=== PATIENT | male | born 1955 | race Caucasian/White ===

== ENCOUNTER 2018-07-09 17:53 | Outpatient (REF) | payer MEDICARE, SELFPAY ==
[2018-07-09 21:08] LABS: Abs Immature Grans 0.02 k/cumm (0.0-0.09); Absolute Basophil Count 0.02 k/cumm (0.0-0.2); Absolute Eosinophil Count 0.35 k/cumm (0.0-0.7); Absolute Lymphocyte Count 2.58 k/cumm (1.2-3.4); Absolute Monocyte Count 0.84 k/cumm (0.11-0.7); Absolute Neutrophil Count 4.78 k/cumm (1.2-6.7); Basophils % 0.2; Eosinophils % 4.1; HCT 45.4 % (40.0-50.0); HGB 15.6 g/dL (13.5-17.5); Immature Grans % 0.2; Mean Corp. HGB Concentration 34.4 g/dL (32.0-36.0); Mean Corpuscular Hemoglobin 30.2 pg (27.0-33.0); Mean Platelet Volume 11.4 fL (8.0-11.0); Monocytes % 9.8; Neutrophils % 55.7; Platelet Count 209 x1000/uL (130-400); RBC 5.16 m/cumm (4.50-6.00); RBC Distribution Width 13.7 % (11.8-14.1); White Blood Cell Count 8.59 k/cumm (4.4-10.8)
[2018-07-09 21:49] LABS: ALT 55 U/L (12-78); AST 31 U/L (15-37); Alkaline Phosphatase 93 U/L (46-116); Anion Gap 10.8 mmol/L (3-11); BUN 25 mg/dL (7-18); Bilirubin, Total 0.4 mg/dL (0.2-1.0); CO2 26.2 mmol/L (21.0-32.0); CREATININE 0.95 mg/dL (0.70-1.30); Calcium 8.8 mg/dL (8.5-10.1); Chloride 107 mmol/L (98-107); Glucose 112 mg/dL (70-100); Potassium 4.1 mmol/L (3.5-5.1); Sodium 144 mmol/L (136-145); TSH (W/Ref FT4) 2.65 uIU/mL (0.358-3.74); Vitamin B12 520 pg/mL (193-986)
[2018-07-11 11:06] LABS: Hepatitis C Ab w Rflx HCV PCR Negative (NEGAT)
== END 2018-07-09 18:13 ==
LOC: NCHCN 17:53
PROVIDERS: PCP Nurse Practitioner Family; Visit Provider Nurse Practitioner Family
DX: R41.3 Other amnesia (principal); I20.9 Angina pectoris, unspecified; G47.33 Obstructive sleep apnea (adult) (pediatric); I25.10 Atherosclerotic heart disease of native coronary artery without angina pectoris; E78.5 Hyperlipidemia, unspecified; I10 Essential (primary) hypertension; Z00.00 Encounter for general adult medical examination without abnormal findings; E66.9 Obesity, unspecified; Z11.59 Encounter for screening for other viral diseases
CPT/HCPCS: 80053; 86803; 82607; 84443; 85025

== ENCOUNTER 2018-12-17 16:32 | Outpatient (CLI) | payer OTHER, SELFPAY ==
--- NOTE | 2018-12-17 12:45 | DI.CT_ITS ---
SYMPTOMS/DIAGNOSIS: HEADACHE, S/P INJURY 6 DAYS AGO, R51 NONCONTRAST HEAD CT: There are no prior comparison exams. No intracranial hemorrhage or skull fracture is seen. There is no evidence of mass or infarct. There is mild atrophy. No white matter changes are visible. The orbits, sinuses and mastoid air cells are unremarkable. IMPRESSION: Mild atrophy, otherwise negative.
== END 2018-12-17 16:52 ==
PROVIDERS: PCP Nurse Practitioner Family; Visit Provider Internal Medicine
DX: R51 Headache (principal); W19.XXXA Unspecified fall, initial encounter; G31.89 Other specified degenerative diseases of nervous system
CPT/HCPCS: 70450

== ENCOUNTER 2019-07-11 16:20 | Outpatient (REF) | payer OTHER, SELFPAY ==
[2019-07-11 21:36] LABS: Hemoglobin A1C 5.7 % (4.5-6.2)
[2019-07-11 21:40] LABS: ALT 96 U/L (16-63); AST 46 U/L (15-37); Albumin 4.5 g/dL (3.4-5.0); Alkaline Phosphatase 55 U/L (46-116); Anion Gap 11.7 mmol/L (3-11); BUN 16 mg/dL (7-18); Bilirubin, Total 0.6 mg/dL (0.2-1.0); CO2 26.3 mmol/L (21.0-32.0); CREATININE 0.88 mg/dL (0.70-1.30); Calcium 9.5 mg/dL (8.5-10.1); Chloride 101 mmol/L (98-107); Glucose 90 mg/dL (70-100); Sodium 139 mmol/L (136-145); Total Protein 7.7 g/dL (6.4-8.2)
== END 2019-07-11 16:40 ==
LOC: NCHCN 16:20
PROVIDERS: PCP Nurse Practitioner Family; Visit Provider Nurse Practitioner Family
DX: R73.03 Prediabetes (principal); R10.9 Unspecified abdominal pain; R39.9 Unspecified symptoms and signs involving the genitourinary system; R51 Headache; G47.33 Obstructive sleep apnea (adult) (pediatric); I25.10 Atherosclerotic heart disease of native coronary artery without angina pectoris; E66.9 Obesity, unspecified; E78.5 Hyperlipidemia, unspecified
CPT/HCPCS: 80053; 83036

== ENCOUNTER 2019-07-15 15:03 | Outpatient (REF) | payer OTHER, SELFPAY ==
[2019-07-17 12:37] LABS: Hepatitis A Antibody IgM Negative (NEGAT); Hepatitis B Core Antibody Negative (NEGAT); Hepatitis B surface Ag Negative (NEGAT); Hepatitis C Ab w Rflx HCV PCR Negative (NEGAT)
== END 2019-07-15 15:23 ==
LOC: NCHCN 15:03
PROVIDERS: PCP Nurse Practitioner Family; Visit Provider Nurse Practitioner Family
DX: R74.0 Nonspecific elevation of levels of transaminase and lactic acid dehydrogenase [LDH] (principal); Z11.59 Encounter for screening for other viral diseases
CPT/HCPCS: 86704; 86709; 86803; 87340

== ENCOUNTER 2019-07-26 00:40 | Outpatient (CLI) | payer OTHER, SELFPAY ==
--- NOTE | 2019-07-26 07:32 | DI.US_ITS ---
EXAM: US ABDOMEN CLINICAL HISTORY: ELEVATED TRANSAMINASES,R74.0. TECHNIQUE: Ultrasound performed using standard protocol. COMPARISON: RIGHT EXTREMITY ULTRASOUND from 03/13/2017 FINDINGS: Visualized liver parenchyma appears of increased echogenicity raising the possibility of hepatic stea tosis. No focal lesion identified. No evidence of cholelithiasis or biliary dilatation. Pancreas a ppears intact. Spleen is unremarkable. Kidneys appear normal with no evidence of hydronephrosis or nephrolithiasis. No evidence of abdominal aortic aneurysm. IVC is of normal diameter. IMPRESSION: Possible hepatic steatosis. No evidence of cholelithiasis.
== END 2019-07-26 01:00 ==
PROVIDERS: PCP Nurse Practitioner Family; Visit Provider Nurse Practitioner Family
DX: K76.0 Fatty (change of) liver, not elsewhere classified (principal); R74.0 Nonspecific elevation of levels of transaminase and lactic acid dehydrogenase [LDH]
CPT/HCPCS: 76700

== ENCOUNTER 2020-10-07 18:51 | Outpatient (REF) | payer OTHER, SELFPAY ==
[2020-10-07 22:09] LABS: Abs Immature Grans 0.02 10^3/uL (0.0-0.06); Absolute Basophil Count 0.02 10^3/uL (0.0-0.2); Absolute Eosinophil Count 0.12 10^3/uL (0.0-0.7); Absolute Monocyte Count 0.56 10^3/uL (0.1-0.8); Absolute Neutrophil Count 4.34 10^3/uL (1.2-6.7); Basophils % 0.3; Eosinophils % 1.7; HCT 47.1 % (40.0-50.0); HGB 15.8 g/dL (13.5-17.5); Immature Grans % 0.3; Lymphocytes % 27.3; MCH 30.1 pg (27.0-33.0); MCHC 33.5 % (32.0-36.0); MCV 89.7 fL (80-95); MPV 11.3 fL (8.0-11.0); Neutrophils % 62.4; Nucleated RBC 0 %; Platelet Count 219 10^3/uL (130-400); RBC 5.25 10^6/uL (4.36-5.78); RDW 12.6 % (11.8-14.1); RDW-SD 41.6 fL; WBC 6.96 10^3/uL (4.4-10.8)
[2020-10-07 22:23] LABS: ALT 63 U/L (16-63); AST 39 U/L (15-37); Albumin 4.3 g/dL (3.4-5.0); Alkaline Phosphatase 67 U/L (46-116); Anion Gap 7.3 mmol/L (3-11); BUN 19 mg/dL (7-18); Bilirubin, Total 0.6 mg/dL (0.2-1.0); CO2 28.7 mmol/L (21.0-32.0); CREATININE 0.91 mg/dL (0.70-1.30); Calcium 9.3 mg/dL (8.5-10.1); Chloride 102 mmol/L (98-107); Glucose 79 mg/dL (74-106); Potassium 4.7 mmol/L (3.5-5.1); Sodium 138 mmol/L (136-145); Total Protein 7.2 g/dL (6.4-8.2)
[2020-10-07 22:24] LABS: Hemoglobin A1C 5.3 % (<5.7)
== END 2020-10-07 19:11 ==
LOC: NCHCN 18:51
PROVIDERS: PCP Nurse Practitioner Family; Visit Provider Nurse Practitioner Family
DX: R73.03 Prediabetes (principal); I10 Essential (primary) hypertension; E78.5 Hyperlipidemia, unspecified
CPT/HCPCS: 80053; 83036; 85025

== ENCOUNTER 2020-10-19 02:01 | Outpatient (CLI) | payer OTHER, SELFPAY ==
--- NOTE | 2020-10-19 | DI.US_ITS ---
EXAM: US ABDOMEN CLINICAL HISTORY: STEATOSIS OF LIVER, K76.0, ELEVATED TRANSAMINASES, R74.0 TECHNIQUE: Ultrasound of complete upper abdomen performed using standard protocol. COMPARISON: US US ABDOMEN from 07/26/2019 FINDINGS: There is no ascites evident. LIVER: Liver is hyperechoic indicating steatosis. Liver also appears slightly enlarged. There are n o discrete focal hepatic lesions evident on these images. GALLBLADDER/BILIARY: There are no gallstones. No gallbladder wall edema nor pericholecystic fluid. The common hepatic duct isnot dilated, measuring 5mm at the level of robles hepatis. PANCREAS: There is no evidence of pancreatic mass nor dilatation of the pancreatic duct. SPLEEN: The spleen is not enlarged and there are no intrasplenic lesions evident. KIDNEYS:Kidneys exhibit normal size with no evidence of solid mass, calculus, nor hydronephrosis. No cortical cysts evident. ABDOMINAL AORTA: There is no evidence of abdominal aortic aneurysm. IVC: Normal diameter where visualized. IMPRESSION: 1. No evidence of cholelithiasis nor dilatation of the biliary tree. 2. Liver appears enlarged and steatotic. Correlation with appropriate hepatic blood work is recomme nded. There are no discrete ominous focal hepatic lesions evident on these images. 3. There is no ascites. DATA REPOSITORY:
== END 2020-10-19 02:21 ==
PROVIDERS: PCP Nurse Practitioner Family; Visit Provider Nurse Practitioner Family
DX: K76.0 Fatty (change of) liver, not elsewhere classified (principal); R74.01 Elevation of levels of liver transaminase levels
CPT/HCPCS: 76700

== ENCOUNTER 2021-04-12 11:45 | Outpatient (REF) | payer OTHER, SELFPAY ==
[2021-04-12 14:25] LABS: Abs Immature Grans 0.03 10^3/uL (0.0-0.06); Absolute Basophil Count 0.02 10^3/uL (0.0-0.2); Absolute Eosinophil Count 0.23 10^3/uL (0.0-0.7); Absolute Lymphocyte Count 2.17 10^3/uL (1.2-3.4); Absolute Monocyte Count 0.76 10^3/uL (0.1-0.8); Absolute Neutrophil Count 4.13 10^3/uL (1.2-6.7); Basophils % 0.3; Eosinophils % 3.1; HCT 47.3 % (40.0-50.0); HGB 16.1 g/dL (13.5-17.5); Immature Grans % 0.4; Lymphocytes % 29.6; MCH 30.3 pg (27.0-33.0); MCV 88.9 fL (80-95); MPV 11.9 fL (8.0-11.0); Monocytes % 10.4; Neutrophils % 56.2; Nucleated RBC 0 %; Platelet Count 204 10^3/uL (130-400); RBC 5.32 10^6/uL (4.36-5.78); RDW 12.9 % (11.8-14.1); RDW-SD 41.4 fL; WBC 7.34 10^3/uL (4.4-10.8)
[2021-04-12 14:40] LABS: ALT 77 U/L (16-63); AST 40 U/L (15-37); Albumin 4.1 g/dL (3.4-5.0); Alkaline Phosphatase 84 U/L (46-116); Anion Gap 11.5 mmol/L (3-11); BUN 18 mg/dL (7-18); Bilirubin, Total 0.4 mg/dL (0.2-1.0); CO2 24.5 mmol/L (21.0-32.0); Calcium 8.8 mg/dL (8.5-10.1); Chloride 105 mmol/L (98-107); Glucose 131 mg/dL (74-106); Potassium 4.2 mmol/L (3.5-5.1); Sodium 141 mmol/L (136-145)
[2021-04-12 14:46] LABS: Hemoglobin A1C 5.7 % (<5.7)
== END 2021-04-12 11:46 | disposition home or self-care (01) ==
LOC: NCHCN 11:45
PROVIDERS: PCP Nurse Practitioner Family; Visit Provider Nurse Practitioner Family
DX: R73.03 Prediabetes (principal); I10 Essential (primary) hypertension; I25.10 Atherosclerotic heart disease of native coronary artery without angina pectoris; R74.01 Elevation of levels of liver transaminase levels; K76.0 Fatty (change of) liver, not elsewhere classified
CPT/HCPCS: 80053; 83036; 85025

== ENCOUNTER 2022-01-17 10:33 | Outpatient (CLI) | payer MEDICARE, SELFPAY ==
[2022-01-17 12:45] LABS: Abs Immature Grans 0.03 10^3/uL (0.0-0.06); Absolute Basophil Count 0.03 10^3/uL (0.0-0.2); Absolute Eosinophil Count 0.14 10^3/uL (0.0-0.7); Absolute Lymphocyte Count 2.16 10^3/uL (1.2-3.4); Absolute Monocyte Count 0.62 10^3/uL (0.1-0.8); Basophils % 0.4; Eosinophils % 1.8; HCT 44.8 % (40.0-50.0); HGB 15.4 g/dL (13.5-17.5); Immature Grans % 0.4; Lymphocytes % 28.1; MCH 30.4 pg (27.0-33.0); MCHC 34.4 % (32.0-36.0); MCV 88.4 fL (80-95); MPV 10.3 fL (8.0-11.0); Monocytes % 8.1; Neutrophils % 61.2; Nucleated RBC 0 %; Platelet Count 199 10^3/uL (130-400); RBC 5.07 10^6/uL (4.36-5.78); RDW 13.2 % (11.8-14.1); RDW-SD 42.3 fL; WBC 7.68 10^3/uL (4.4-10.8)
[2022-01-17 12:47] LABS: ESR < 1 mm/hr (0-20)
[2022-01-17 13:27] LABS: ALT 79 U/L (16-63); AST 31 U/L (15-37); Albumin 4.1 g/dL (3.4-5.0); Alkaline Phosphatase 72 U/L (46-116); Anion Gap 10.2 mmol/L (3-11); BUN 20 mg/dL (7-18); Bilirubin, Total 0.4 mg/dL (0.2-1.0); CO2 24.8 mmol/L (21.0-32.0); CREATININE 0.9 mg/dL (0.70-1.30); Calcium 8.5 mg/dL (8.5-10.1); Chloride 105 mmol/L (98-107); Creatine Kinase 270 U/L (39-308); Glucose 121 mg/dL (74-106); Magnesium 1.9 mg/dL (1.8-2.4); Potassium 3.6 mmol/L (3.5-5.1); Sodium 140 mmol/L (136-145); TSH (W/Ref FT4) 1.69 uIU/mL (0.36-3.74); Total Protein 7.2 g/dL (6.4-8.2); Troponin I < 50 ng/L (<or=60); Vitamin B12 529 pg/mL (193-986)
== END 2022-01-17 10:34 | disposition home or self-care (01) ==
LOC: LBO 10:36
PROVIDERS: PCP Nurse Practitioner Family; Visit Provider Nurse Practitioner Family
DX: R09.89 Other specified symptoms and signs involving the circulatory and respiratory systems (principal); R01.1 Cardiac murmur, unspecified; R51.9 Headache, unspecified; R29.898 Other symptoms and signs involving the musculoskeletal system; R07.89 Other chest pain
CPT/HCPCS: 36415; 80053; 82550; 85652; 82607; 83735; 84443; 84484; 85025

== ENCOUNTER → 2022-01-31 00:59 | Outpatient (CLI) | payer MEDICARE, SELFPAY ==
--- NOTE | 2022-01-31 09:15 | DI.NM_ITS ---
APPROVED REPORT Exam: Exercise Treadmill Patient Location: Out-Patient Room/Bed: Stress Nurse: Gerri Winslow RN Ordering Provider:AKANKSHA GIFFORD, Contact Number: [phone] BMI: 34.94 Baseline Rhythm: Sinus Rhythm Comment: Flipped T waves lead III Indications: Chest discomfort, cardiac murmur, headaches, bilateral leg weakness Medical History Medical History: Hypertension, hyperlipidemia, prediabetes, tobacco abuse, ALEK, obesity, CAD, paresth esia of bilateral legs, abdominal burit Cardiac Medications: Simvastatin, nitroglycerin SL, lisinopril, aspirin Allergies: Atorvastatin Cardiac Risk Factors: Hypertension, hyperlipidemia, prediabets, smoker (current), CVD, family hx Previous Cardiac Procedures: PCI -2015 per pt report Pretest Chest Pain Characteristics: None Exercise History: Sedentary Physical Disabilities: Paresthesia of bilateral legs Lung Sounds: Clear to auscultation Heart Sounds: Murmur Stress Test Details Test: Exercise stress testing was performed using a Marcus protocol. Nuclear Acquisition: Rest Tc-99m/Stress Tc-99m 1 day Rest Isotope: Tc-99m Sestamibi. Dose: 11.0 Date: 01/31/2022 Injection Time: 0920 Stress Isotope: Tc-99m Sestamibi. Dose: 35.0 Date: 01/31/2022 Injection Time: 1105 HR Resting HR Supine: 63 bpm Max Heart Rate (APMHR): 152.725013 bpm Resting HR Standin bpm Target HR (85% APMHR): 129.715193 bpm Max HR Achieved: 135 bpm % of APMHR: 88.82 Recovery HR: 72 bpm HR response to stress: Normal HR response to stress BP Resting BP Supine: 150/88 mmHg Resting BP Standin/80 mmHg Max BP: 184/88 mmHg Recovery BP: 150/92 mmHg BP response to stress: Normal blood pressure response to stress. ECG Resting ECG: Sinus Rhythm Ectopy: None Comment: Fillped T waves lead III Stress ECG: Sinus Tachycardia ST Change: No significant ST segment changes noted Arrhythmia: None Recovery ECG: Sinus Rhythm Recovery ST Change: No significant ST segment changes noted Recovery Arrhythmia: None Clinical Reason for Termination: Fatigue Stress Symptoms: General Fatigue, Dyspnea, Dizziness Exercise duration: 6 min50 sec Highest Stage Reached: Stage 2: 2.5 mph at 12% grade. Exercise capacity: 7.05 METs Christensen Treadmill Score: 6.6 Rate Pressure Product: 36180 Stress ECG Conclusion 1. Resting electrocardiogram showed poor R wave progression 2. Patient exercised on the Marcus protocol and completed a workload of 7.05 METS 3. Normal heart rate and blood pressure response to exercise. Patient achieved 88% of predicted hear t rate for age 4. The electrocardiographic portion of the test was negative for myocardial ischemia 5. There were no significant dysrhythmias 6. See MPI report Christensen Treadmill Score is 6.6 which is Low risk. Stress Test Summary STAGE Time (mins) Speed (mph) Grade (%) HR BP SYMPTOMS METS Supine 63 150/88 Standing 70 132/80 SpO2 96% 1 3 1.7 10 113 152/88 SpO2 95% 4.6 2 6 2.5 12 128 184/88 Mild SOB, SpO2 96% 7 1 min recovery 85 180/90 Dizziness, SpO2 96% 3 min recovery 74 168/90 SOB and dizziness resolved, SpO2 95% 6 min recovery 72 150/92 SpO2 96% Pt reached THR during second stage of exercise. Marcus protocol modified in order to maintain exercise after nuclear medicine injected. Modified protocol to 2.5mph and 5.0% grade. Pt tolerated testing we ll. Experienced dizziness when exercise terminated; resolved during recovery period. MPI Conclusion Normal myocardial perfusion without evidence of ischemia or prior infarction EF 57%, normal wall motion Radiologist Interpretation Radiologist agrees with [employer]'s Interpretation. Radiologist Interpretation by: Winnie Mitchell MD Interpretation Date/Time: 01/31/2022 16:10:29
== END ==
PROVIDERS: PCP Nurse Practitioner Family; Visit Provider Nurse Practitioner Family
DX: R07.9 Chest pain, unspecified (principal); R01.1 Cardiac murmur, unspecified; R51.9 Headache, unspecified; M62.81 Muscle weakness (generalized)
CPT/HCPCS: 78452; 93016; 93018; 93017

== ENCOUNTER 2022-02-07 14:05 | Emergency (ER) | payer MEDICARE, SELFPAY ==
--- NOTE | 2022-02-07 14:15 | RT.EKG_ITS ---
APPROVED REPORT Exam: Resting ECG Reason for Exam: weakness/weak Patient Location: E HR:69 bpm ECG Measurements Heart Rate 69 AXIS DC 200 P 32 QRSd 100 QRS -37 QT 405 T -3 QTc 435 Conclusion Sinus rhythm...normal P axis, V-rate 60- 99 Inferior infarct, old...Q >35mS, II III aVF sinus rhythm, left axis, normal intervals, non ischemic
[2022-02-07 14:16] VITALS: BP 169/82; PULSE 70; RESP 18; TEMP 36.7; O2SAT 96
[2022-02-07 14:21] VITALS: RESP 18
--- NOTE | 2022-02-07 14:33 | DI.CT_ITS ---
Exam(s) CT THORAX ABD/PEL CTA EXAM: CT THORAX ABD/PEL CTA CLINICAL HISTORY: new heart murmur, abdominal bruit, back pain. TECHNIQUE: Imaging Protocol: Axial CT angiography was performed with multi-slice acquisition and m ulti-planar and/or 3D reconstructions. CONTRAST MATERIAL: Intravenous: Omnipaque 350 Contrast volume:125 ml Oral: / no COMPARISON: CT,NM,TMT NM MPI REST STRESS GRP from 01/31/2022 FINDINGS: CHEST: Pulmonary Arteries: No evidence of filling defect to suggest pulmonary emboli. Tracheobronchial tree: Patent where visualized. Mediastinum and Carito: No dominant adenopathy or fluid collection. Pulmonary parenchyma: No consolidation or dominant measurable mass. No architectural distortion. Pleura: No effusion or pneumothorax. Heart: The heart is mildly dilated. No coronary artery calcifications are seen. Aorta: Thoracic aorta non-dilated. No significant calcification. No evidence of dissection Bones: Degenerative disc changes with flowing osteophytes. No fracture. Tubes, Catheters, and Lines: ABDOMEN AND PELVIS: Abdomen: Celiac axis/mesenteric arteries: No evidence of occlusion or significant stenosis. Renal Arteries: No evidence of occlusion or significant stenosis. There is a single renal artery per fusing each kidney. Aorta: No evidence of occlusion or significant stenosis. No aneurysm or dissection. Pelvis: Iliac Arteries: No evidence of occlusion or significant stenosis. Common Femoral Arteries: No evidence of occlusion or significant stenosis. ABDOMEN: Liver: Enlarged. Severe hepatic steatosis. No measurable mass. Portal, Superior Mesenteric, and Splenic Veins: Unremarkable. Gallbladder and Biliary Tract: No radiodense calculus or dilation. Pancreas: Normal density, no abnormal calcifications or inflammatory process. Spleen: Normal. Adrenals: No masses seen. Kidneys: Normal size, contour and axis. No radiodense stones or obstructive uropathy. No masses seen. Bowel: No obstruction or bowel wall thickening. Mild diverticulosis. Peritoneal Cavity: No ascites, collection or mesenteric inflammatory response. Lymph Nodes: Within normal limits. Bones: Unremarkable. Soft Tissues: Unremarkable. PELVIS: Bladder: Symmetric distention, no gross wall thickening. Reproductive Organs: Unremarkable as visualized. Lymph Nodes: Within normal limits. Bones: Degenerative changes in the spine and hips. Mild scoliosis. Soft tissues: Bilateral fatty containing inguinal hernias. IMPRESSION: Normal CT Angiogram of the chest, abdomen and pelvis. No evidence of aneurysm or dissection. No significant atherosclerotic changes. RADIATION DOSE DELIVERED: 1,199.54mGy.cm Total DLP 1,199.54mGy.cm Total DLP DATA REPOSITORY: All CT scans at this facility are submitted to the National Radiology Data Registry (NRDR) Dose Index Registry (DIR) with the [employer] ([employer]). RADIATION OPTIMIZATION: All CT scans at this facility use at least one of these dose optimization te chniques: automated exposure control; mA and/or kV adjustment per patient size (includes targeted exa ms where dose is matched to clinical indication); or iterative reconstruction.
[2022-02-07 14:46] LABS: Abs Immature Grans 0.02 10^3/uL (0.0-0.06); Absolute Basophil Count 0.03 10^3/uL (0.0-0.2); Absolute Eosinophil Count 0.13 10^3/uL (0.0-0.7); Absolute Lymphocyte Count 2.39 10^3/uL (1.2-3.4); Absolute Monocyte Count 0.95 10^3/uL (0.1-0.8); Absolute Neutrophil Count 4.68 10^3/uL (1.2-6.7); Basophils % 0.4; Eosinophils % 1.6; HCT 46.5 % (40.0-50.0); HGB 16.1 g/dL (13.5-17.5); Immature Grans % 0.2; Lymphocytes % 29.1; MCH 30.6 pg (27.0-33.0); MCHC 34.6 % (32.0-36.0); MCV 88.4 fL (80-95); MPV 10.4 fL (8.0-11.0); Monocytes % 11.6; Neutrophils % 57.1; Platelet Count 228 10^3/uL (130-400); RBC 5.26 10^6/uL (4.36-5.78); RDW 12.5 % (11.8-14.1); RDW-SD 40.8 fL
[2022-02-07 15:00] LABS: PTT Activated 25.3 sec (21.0-27.5); Prothrombin Time 10.3 sec (9.3-11.0)
--- NOTE | 2022-02-07 15:00 | DI.CT_ITS ---
Exam(s) CT HEAD WO EXAM: CT HEAD WO CLINICAL HISTORY: headache, leg weakness bilaterally. TECHNIQUE: Imaging Protocol: Axial computed tomography images with coronal and sagittal reformatted images were created and reviewed COMPARISON: CT CT HEAD WO from 12/17/2018 FINDINGS: Ventricles and Extra axial spaces: Normal in size and morphology for the patient's age. Hemorrhage: None. Cerebral parenchyma: Normal. Midline shift: None. Brainstem/Cerebellum: Normal. Calvarium: Normal. Visualized Paranasal sinuses/Mastoids: Clear. Soft Tissues: Unremarkable. IMPRESSION: No acute intracranial process. RADIATION DOSE DELIVERED: 858.68mGy.cm Total DLP DATA REPOSITORY: All CT scans at this facility are submitted to the National Radiology Data Registry (NRDR) Dose Index Registry (DIR) with the [employer] (ACR). RADIATION OPTIMIZATION: All CT scans at this facility use at least one of these dose optimization te chniques: automated exposure control; mA and/or kV adjustment per patient size (includes targeted exa ms where dose is matched to clinical indication); or iterative reconstruction.
--- NOTE | 2022-02-07 15:01 | ED.GENADUL_ITS ---
Discharge Plan Disposition Patient Disposition: STILL A PATIENT Condition: Stable Discharge Details Chief Complaint: Chest Pain Clinical Impression: Chest pain Primary Care Provider: Nikki Tripp ED Provider: Bentley Huerta Home Meds and New Rx's Prescriptions: No Action multivitamin [Once Daily] 1 EACH tablet 1 tab PO DAILY 0RF lisinopril 20 MG tablet 20 mg PO DAILY 0RF aspirin [Ecotrin Low Strength] 81 MG tablet,delayed release (DR/EC) 81 mg PO DAILY 0RF nitroglycerin 0.4 MG tablet, sublingual 1 tab Sublingual DIRECTED PRN0RF pravastatin 20 MG tablet 1 tab PO DAILY 0RF cholecalciferol (vitamin D3) 1,000 UNITS tablet 1 tab PO DAILY 0RF Medical Decision Making 66-year-old male history of hypertension hyperlipidemia, coronary disease, presents with intermittent chest pain over the last several weeks, bilateral lower extremity fatigue, possible new heart murmur heard by primary care provider as well as possible abdominal bruit, patient endorsed to them chest pain and mild back pain. Patient is hemodynamically stable no acute distress equal pulses warm well perfused extremities. No murmur appreciated on my examination. However given history physical and findings at outpatient office must consider aortic pathology such as aortic dissection aortic aneurysm versus ACS versus electrolyte abnormality versus less likely stroke or intracranial bleed. Screening labs imaging EKG close reassessment disposition pending results. HPI General Date/Time Provider Initiated Documentation: 02/07/22 14:33 . HPI Narrative: 66-year-old male history of coronary disease hypertension upper lipidemia, referred in by primary care for evaluation of chest pain over the last week, new heart murmur and possible abdominal bruit heard in the office today, patient dorsals mild headache gradual in onset and bilateral lower extremity fatigue over the past several weeks. Related Data Home Medications Medication Instructions Recorded Confirmed aspirin 81 mg tablet,delayed 81 mg PO DAILY 03/13/17 02/07/22 release (Ecotrin Low Strength) cholecalciferol (vitamin D3) 25 1 tab PO DAILY 03/13/17 02/07/22 mcg (1,000 unit) tablet lisinopril 20 mg tablet 20 mg PO DAILY 03/13/17 02/07/22 multivitamin (Once Daily) 1 tab PO DAILY 03/13/17 02/07/22 nitroglycerin 0.4 mg sublingual 1 tab SUBLINGUAL DIRECTED PRN 03/13/17 02/07/22 tablet pravastatin 20 mg tablet 1 tab PO DAILY 03/13/17 02/07/22 Allergies Allergy/AdvReac Type Severity Reaction Status Date / Time atorvastatin [From Lipitor] Allergy Mild Verified 02/07/22 14:19 General Stated Complaint: Chest Pain SARAH: 3 Review of Systems Narrative: Review of Systems Constitutional: negative Eyes: negative ENT: negative Cardiovascular: Chest pain, heart murmur Respiratory: negative Gastrointestinal: negative : negative Musculoskeletal: negative Skin: negative Neurologic: Leg fatigue, headache Psych: negative PFSH All Active Problems (Updated 02/07/22 @ 16:30 by Bentley Huerta MD) Chest pain (Acute) Family History (Updated 07/17/18 @ 13:02 by Lakeisha Oilvier LPN) Mother Alzheimer disease Social History (Updated 07/17/18 @ 13:01 by Lakeisha Olivier LPN) Smoking/Tobacco Use Status: Former Tobacco Use Smoking risk assessment performed?: Yes Alcohol Intake: current Alcohol Intake frequency: holidays/special occasions only Drug use: Never Substance use type: does not use Household members: spouse Housing: house Number of Children: 1 Do you feel safe at home: Yes Do you feel safe in your relationship?: Yes Exam Narrative Exam Narrative: Physical Examination General: alert, awake, cooperative, resting comfortably, no acute distress HEENT: normocephalic, atraumatic; PERRL, EOM intact, conjunctiva normal; no nasal discharge; moist mucous membranes, oral and pharyngeal mucosa normal, tolerating secretions Neck: supple, trachea midline; full ROM Chest: normal to inspection Respiratory: normal respiratory effort, speaking in full sentences, clear to auscultation, no wheezing, rales or rhonchi Cardiac: regular rate, regular rhythm, S1S2 intact, no murmurs rubs or gallops; equal radial pulses GI: abdomen soft, non-tender, non-distended; no palpable mass or hepatosplenomegaly Skin: no lesions, rashes or trauma appreciated Neuro: AAOx3, normal speech, moving all extremities, full strength, ambulatory without assistance Extremities: Warm well perfused lower extremities, mild edema to bilateral ankles Psych: Appropriate mood and affect Course Vital Signs Vital signs: Vital Signs Temperature 36.7 C 02/07/22 14:16 Pulse 70 02/07/22 14:16 Respiratory Rate 18 02/07/22 14:16 Blood Pressure 169/82 H 02/07/22 14:16 Pulse Oximetry 96 02/07/22 14:16 Temperature 36.7 C 02/07/22 14:16 Temperature Source Temporal Artery Scan 02/07/22 14:16 Pulse 70 02/07/22 14:16 Respiratory Rate 18 02/07/22 14:21 Respiratory Effort 02/07/22 14:21 Respiratory Depth Normal 02/07/22 14:21 Respiratory Pattern Normal 02/07/22 14:21 Blood Pressure 169/82 H 02/07/22 14:16 Blood Pressure Position Sitting 02/07/22 14:16 Pulse Oximetry 96 02/07/22 14:16 Oxygen Delivery Method Room Air 02/07/22 14:16 Oxygen Flow Rate 0 02/07/22 14:16 Pain Level 3 02/07/22 14:21 Lab/Test Results Lab/Test Results: Laboratory Tests Range/Units 02/07/22 02/07/22 14:35 14:35 WBC (4.4-10.8) 10^3/uL 8.20 RBC (4.36-5.78) 10^6/uL 5.26 Hgb (13.5-17.5) g/dL 16.1 Hct (40.0-50.0) % 46.5 MCV (80-95) fL 88.4 MCH (27.0-33.0) pg 30.6 MCHC (32.0-36.0) % 34.6 RDW (11.8-14.1) % 12.5 Plt Count (130-400) 10^3/uL 228 MPV (8.0-11.0) fL 10.4 Immature Gran % 0.2 Neutrophils % 57.1 Lymphocytes % 29.1 Monocytes % 11.6 Eosinophils % 1.6 Basophils % 0.4 Nucleated RBC % (0.0-0.3) % 0.0 Absolute Neutrophils (1.2-6.7) 10^3/uL 4.68 Absolute Lymphocytes (1.2-3.4) 10^3/uL 2.39 Absolute Monocytes (0.1-0.8) 10^3/uL 0.95 H Absolute Eosinophils (0.0-0.7) 10^3/uL 0.13 Absolute Basophils (0.0-0.2) 10^3/uL 0.03 PT (9.3-11.0) sec 10.3 INR (0.9-1.1) 1.0 APTT (21.0-27.5) sec 25.3
[2022-02-07 15:04] LABS: ALT 122 U/L (16-63); AST 38 U/L (15-37); Albumin 4.3 g/dL (3.4-5.0); Alkaline Phosphatase 66 U/L (46-116); Anion Gap 8.1 mmol/L (3-11); BUN 19 mg/dL (7-18); Bilirubin, Total 0.5 mg/dL (0.2-1.0); CO2 26.9 mmol/L (21.0-32.0); CREATININE 0.9 mg/dL (0.70-1.30); Chloride 103 mmol/L (98-107); Glucose 81 mg/dL (74-106); Sodium 138 mmol/L (136-145); Total Protein 7.5 g/dL (6.4-8.2); Troponin I < 50 ng/L (<or=60)
[2022-02-07] MEDS: Omnipaque 350 MG/ML 100 ML BTL IJ (15:56)
[2022-02-07] MEDS: Omnipaque 350 MG/ML 50 ML BTL 25 ML IJ (15:56)
[2022-02-07 16:10] VITALS: BP 132/83; PULSE 61; RESP 17; TEMP 36.7; O2SAT 95
[2022-02-07 17:53] VITALS: BP 143/82; PULSE 59; RESP 18; TEMP 36.9; O2SAT 95
[2022-02-07 17:57] LABS: Troponin I < 50 ng/L (<or=60)
--- NOTE | 2022-02-07 18:17 | W.EDPROG ---
Date of service: 02/07/22 Time of Service: 18:22 Medical Decision Making Patient signed out to me pending imaging and delta troponin results and if negative d/c. CT and troponin negative and he is asymptomatic and comfortable with d/c. HE understands to f/u with pcp and return precautions given Sign Out Sign Out Data: Sign Out Comment: pending labs and imaging, if negative can be dc'd home with followup Last updated by Bentley Huerta MD at 02/07/22 16:31 Discharge Plan Disposition Patient Disposition: HOME Condition: Stable Discharge Details Clinical Impression: Chest pain Primary Care Provider: Nikki Tripp ED Provider: Raghavendra Carlson Home Meds and New Rx's Prescriptions: Continued multivitamin [Once Daily] 1 EACH tablet 1 tab PO DAILY 0RF lisinopril 20 MG tablet 20 mg PO DAILY 0RF aspirin [Ecotrin Low Strength] 81 MG tablet,delayed release (DR/EC) 81 mg PO DAILY 0RF nitroglycerin 0.4 MG tablet, sublingual 1 tab Sublingual DIRECTED PRN0RF pravastatin 20 MG tablet 1 tab PO DAILY 0RF cholecalciferol (vitamin D3) 1,000 UNITS tablet 1 tab PO DAILY 0RF Discharge Instructions Instructions: Chest Pain (ED) Additional Instructions: your blood work and imaging did not show concerning findings at this time follow up with your primary care provider within 1 week if you feel more ill, have worsening pain or difficulty breathing return to the emergency department
== END 2022-02-07 18:36 | disposition home or self-care (01) ==
PROVIDERS: Emergency Medicine; Emergency Provider Emergency Medicine; PCP Nurse Practitioner Family
DX: R07.9 Chest pain, unspecified (principal); R53.1 Weakness; R06.02 Shortness of breath; R51.9 Headache, unspecified; R01.1 Cardiac murmur, unspecified; R09.89 Other specified symptoms and signs involving the circulatory and respiratory systems; M54.9 Dorsalgia, unspecified
CPT/HCPCS: 36415; 74177; 80053; 93005; 99285; 70450; 84484; 85025; 85610; 85730; 93010; 99284; J3490; Q9967

== ENCOUNTER → 2022-02-18 01:08 | Outpatient (CLI) | payer MEDICARE, SELFPAY ==
--- NOTE | 2022-02-18 15:05 | DI.MRI_ITS ---
Exam(s) MR LUMBAR SPINE WO EXAM: MR LUMBAR SPINE WO CLINICAL HISTORY: PARESTHESIA OF TABATHA LEGS, R20.2, LEG WEAKNESS TABATHA, R29.898. TECHNIQUE: Multiplanar multisequence MRI of the Lumbar spine was performed. COMPARISON: CR CHEST 2 VIEWS PA,LAT from 03/30/[address] THORAX ABD/PEL CTA from 02/07/2022 FINDINGS: Bones: The last intervertebral disc space is designated the L5/S1 level for the numbering purpose of this examination. The vertebral body heights are well maintained. Mild degenerative levo scoliosis. Marrow shows red marrow reconversion. No suspicious lesions. Degenerative signal changes in the e ndplates. Cord: The conus tip ends at the L1 level. It is of normal size and signal intensity. T12-L1: Mild disc bulging is present. No central spinal canal or neural foraminal stenosis. L1-2: Moderate loss of disc height. Broad-based disc osteophytes. Mild facet degenerative changes. Moderate right neural foraminal narrowing. Mild central canal stenosis. L2-3: Moderate loss of disc height. Broad-based disc osteophytes. Facet degenerative changes. Mode rate central canal stenosis. Moderate right and mild left neural foraminal narrowing. L3-4: Moderate loss of disc height. Broad-based disc bulging. Moderate facet degenerative changes. No significant central canal stenosis. Moderate right and mild left neural foraminal narrowing. L4-5: Mild loss of disc height. Broad-based disc bulging. Facet degenerative changes, greater on th e left. Mild central canal stenosis. Moderate bilateral neural foraminal narrowing.. L5-S1: Left paracentral disc protrusion is likely left-sided nerve root impingement. Moderate facet degenerative changes. No significant neural foraminal narrowing or central canal stenosis. Soft tissues: The visualized SI joints and sacrum are well maintained. The paraspinal soft tissues ar e unremarkable. IMPRESSION: Left paracentral disc protrusion at L5-S1 with nerve root impingement. Multilevel degenerative disc changes and facet degenerative changes combining to produce bilateral ne ural foraminal narrowing and central canal stenosis, greatest at L2-3. DATA REPOSITORY:
== END ==
PROVIDERS: PCP Nurse Practitioner Family; Visit Provider Nurse Practitioner Family
DX: R29.898 Other symptoms and signs involving the musculoskeletal system (principal); R20.2 Paresthesia of skin; M51.17 Intervertebral disc disorders with radiculopathy, lumbosacral region; M47.27 Other spondylosis with radiculopathy, lumbosacral region
CPT/HCPCS: 72148

== ENCOUNTER → 2022-02-22 01:20 | Outpatient (CLI) | payer MEDICARE, SELFPAY ==
--- NOTE | 2022-02-22 11:00 | DI.US_ITS ---
Exam(s) US AAA SCREENING EXAM: US AAA SCREENING CLINICAL HISTORY: ABDOMINAL BRUIT, R09.89 COMPARISON: US US ABDOMEN from 10/19/2020 FINDINGS: There is no evidence of abdominal aortic aneurysm. Maximum diameter of the abdominal aorta is 2.4 cm , proximally. There appears to be satisfactory distal tapering. Diameters of the visualized common iliac arteries is 1.4 cm bilaterally. IMPRESSION: No evidence of significant abdominal aortic aneurysm. DATA REPOSITORY:
== END ==
PROVIDERS: PCP Nurse Practitioner Family; Visit Provider Nurse Practitioner Family
DX: R09.89 Other specified symptoms and signs involving the circulatory and respiratory systems (principal); Z13.6 Encounter for screening for cardiovascular disorders
CPT/HCPCS: 76706

== ENCOUNTER → 2022-03-01 00:48 | Outpatient (CLI) | payer MEDICARE, SELFPAY ==
--- NOTE | 2022-03-01 07:30 | DI.US_ITS ---
APPROVED REPORT EXAM: Comprehensive 2D, Doppler, and color-flow Echocardiogram Patient Location: Out-Patient Welcome Wagon Host/Hostess: Carol De Luna RDCS (AE) Indications: Murmur, Chest discomfort, Bilateral leg weakness Other Information Study Quality: Adequate Conclusion Normal left ventricular wall thickness and chamber size. Estimated ejection fraction is 55 to 60%. Wall motion is normal Normal right ventricular size and systolic function Both atria are normal in size Aortic valve is trileaflet and very mildly sclerotic without stenosis or regurgitation Normal mitral valve with trace regurgitation Normal tricuspid valve with trace regurgitation Wall motion Left Ventricle The left ventricle is normal size. The left ventricular systolic function is normal. The left ventric ular ejection fraction is within the normal range. There is normal left ventricular wall thickness. T here is normal LV segmental wall motion. There is no ventricular septal defect visualized. LVEF is 55 %. Right Ventricle The right ventricle is normal size. Right ventricle is not well visualized. Right ventricle is grossl y normal in size. The right ventricular systolic function is normal. Atria The left atrium size is normal. The right atrium size is normal. The interatrial septum is intact wit h no evidence for an atrial septal defect. Aortic Valve The aortic valve is trileaflet and very mildly sclerotic There is no aortic valvular stenosis. No aor tic regurgitation is present. Mitral Valve The mitral valve is normal in structure. No evidence of mitral valve stenosis. Trace mitral regurgita tion. Tricuspid Valve The tricuspid valve is normal in structure. There is no tricuspid valve stenosis. Trace tricuspid reg urgitation. Unable to assess PA pressure. Pulmonic Valve The pulmonary valve is normal in structure. There is no pulmonic valvular stenosis. There is no pulmo jaquan valvular regurgitation. Great Vessels The aortic root is normal in size. The ascending aorta is normal in size. Aortic arch is not well vis ualized. IVC is normal in size and collapses >50% with inspiration. Pericardium There is no pericardial effusion. 2D Dimensions IVSD d PLAX 1.09 cm M: 0.6-1.2 LV Vol A2C d MOD 128.3 mL LVPW d PLAX 1.07 cm M: 0.6 - 1.2 LV Vol A4C d MOD 138.1 mL LVID d PLAX 4.80 cm M: 4.2 - 5.8 LA vol/ BSA A2C s A-L 14.8 mL/m2 LVDs 3.40 cm M: 2.5 - 4.0 LA vol/ BSA A4C s A-L 18.6 mL/m2 Ao Root d 2.89 cm M: 3.1 - 3.7 LA Vol/ BSA Biplane s A-L 16.6 mL/m2 RA Area A4C 15.54 cm2 LA Area A4C s MOD 13.80 cm2 RA Vol/ BSA A4C s A-L 20.6 mL/m2 LA Area A2C s MOD 12.34 cm2 Ao Asc Diam d 3.22 cm M: 2.6 - 3.4 LV EF A4C MOD 55.2 % LV EF Teichholz 55.7 % LV EF A2C MOD 55.7 % LVEF (Fraire's) 57.01 % M: 52 - 72 LV EF Biplane MOD 57.0 % LV Volume 104.06 mL M: 62 - 150 SV 79.03 mL LV Volume Index 52.29 mL/m2 M: 34 - 74 SV Index 39.63 mL/m2 LV Vol Biplane MOD 138.6 mL FS 29.00 % M-Mode TAPSE 2.35 cm (M/F) >1.7 LV Diastology MV E' medial 0.068 (>0.07 m/s) E/A Ratio 0.8 LV E/e MED 9.00 (<14) MV E Vmax 0.62 (0.4-1.3 m/s) MV E' lateral 0.087 (>0.1 m/s) MV A Vmax 0.75 (0.4-1.3 m/s) LV E/e LAT 7.05 (<14) MV E/A Ratio 0.78 MV E/E' medial 9.00 MV E/E' lateral 7.10 Aortic Valve LVOT Area 3.40 cm2 AoV Area Vmax 2.62 cm2 LVOT Vmax 1.21 m/s AoV Area/ BSA (Vmax) 1.32 cm2/m2 LVOT Mean Julian. 0.75 m/s MARTIN Mean Julian. 2.29 cm2 LVOT Peak Grad 5.8 mmHg MARTIN Mean Julian. Index 1.15 cm2/m2 LVOT Mean Grad 2.7 mmHg LVOT VTI 0.240 m LVOT Diam s 2.05 cm AoV Vmax 1.57 m/s Velocity Ratio 0.77 AoV Mean Julian. 1.12 m/s AoV Peak Grad 9.8 mmHg LVOT SV 81.67 mL AoV Mean Grad 5.5 mmHg AoV VTI 0.295 m AoV Area VTI 2.77 cm2 AoV Area/ BSA (VTI) 1.39 cm/m2 Mitral Valve MV DT 270 (160-240 msec) MV PHT 78 msec MV Area PHT 2.81 cm2 MV VTI 0.291 m MV Area VTI 2.81 (4.0-6.0 cm2) Pulmonary Valve PV Vmax 1.61 (0.5-1.5 m/s) RVOT Peak Gr. 1.66 mmHg PV Peak Grad 10.3 mmHg RVOT Mean Gr. 0.95 mmHg PV Mean Grad 5.5 mmHg RVOT VTI 0.128 m PV VTI 0.304 m RVOT Vmax 0.64 m/s
== END ==
PROVIDERS: PCP Nurse Practitioner Family; Visit Provider Nurse Practitioner Family
DX: R01.1 Cardiac murmur, unspecified (principal)
CPT/HCPCS: 93306

== ENCOUNTER → 2022-03-22 01:58 | Outpatient (CLI) | payer MEDICARE, SELFPAY ==
--- NOTE | 2022-03-22 14:00 | DI.RAD_ITS ---
Exam(s) XR SHOULDER RT COMPLETE 2+V EXAM: XR SHOULDER RT COMPLETE 2+V CLINICAL HISTORY: RT SHOULDER JOINT PAIN, M25.511. TECHNIQUE: 2D digital imaging was performed. COMPARISON: No exams were available for comparison FINDINGS: Five views There is no evidence of fracture or dislocation. There is a 3 x 2 millimeter calcific density in the soft tissues immediately adjacent to the inferior aspect of the greater tuberosity, consistent with calcific tendinitis. There also subarticular lucencies in the inferior half of the osseous glenoid. This may be related to prior labral surgery versus is degenerative subarticular cysts. Slight osseo us irregularity at the inferior aspect of the osseous glenoid may be possibly related to a healed Ban kart-type lesion at this level. Mild degenerative changes in the AC joint. IMPRESSION: DATA REPOSITORY: RADIATION DOSE DELIVERED:
== END ==
PROVIDERS: PCP Nurse Practitioner Family; Visit Provider Nurse Practitioner Family
DX: M25.511 Pain in right shoulder (principal); M75.31 Calcific tendinitis of right shoulder; M19.011 Primary osteoarthritis, right shoulder
CPT/HCPCS: 73030

== ENCOUNTER → 2022-04-20 13:53 | Outpatient (BNVA) | payer MEDICARE, SELFPAY | PROVIDERS: PCP Nurse Practitioner Family; Referring Provider Nurse Practitioner Family; Visit Provider Student in an Organized Health Care Education/Training Program | DX: M19.011 Primary osteoarthritis, right shoulder (principal) | CPT/HCPCS: 20610; 99203; 99213; J1030 ==

== ENCOUNTER → 2022-06-15 12:42 | Outpatient (BNVA) | payer MEDICARE, SELFPAY | PROVIDERS: PCP Nurse Practitioner Family; Referring Provider Nurse Practitioner Family; Visit Provider Psychiatry & Neurology Neurology | DX: M79.604 Pain in right leg (principal); M79.605 Pain in left leg; M54.50 Low back pain, unspecified | CPT/HCPCS: 95885; 95910; 99214 ==

== ENCOUNTER 2022-11-23 07:38 | Outpatient (CLI) | payer MEDICARE, SELFPAY ==
--- NOTE | 2022-11-23 06:00 | DI.RAD_ITS ---
Exam(s) XR PAIN CLINIC LUMBAR SP 2V EXAM: XR PAIN CLINIC LUMBAR SP 2V CLINICAL HISTORY: Dx: Lumbar Spondylosis. TECHNIQUE: Fluoroscopy was provided for the referring physician for guidance with performing pain cl inic injection procedure. COMPARISON: No exams were available for comparison FINDINGS: Please see procedure note for details. Fluoro time: 56.9 seconds RADIATION DOSE DELIVERED: Tierar=19.16 mGy
[2022-11-23 07:54] VITALS: BP 129/71; PULSE 66; RESP 20; TEMP 36.6; O2SAT 95
[2022-11-23] MEDS: Bupivacaine 0.5% Pres-Free 10 ML VIAL IJ (08:35)
[2022-11-23] MEDS: Omnipaque 240 MG/ML 50 ML BTL IJ (08:35)
[2022-11-23 08:44] VITALS: BP 146/90; PULSE 61; RESP 20; O2SAT 96
--- NOTE | 2022-11-29 14:14 | PDOC.PAIN ---
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 Post-operative diagnosis: Same Pre-procedure pain: VAS= 6/10 Pre-procedure Note History and Exam: Patient demonstrates today moderate to severe non- radicular back pain without neurologic deficit aggravated by hyperextension Yes Back pain greater than leg pain Yes Patient today has tenderness over the suspected joint(s) Yes History of post-traumatic injury NO Hypertrophic arthropathy NO Back pain associated with suspected motion segment instability or Hypermobility or pseudoarthrosis No Pre-testing pain score (VAS): 6/10 Previous medial branch block testing?: NO Today's Operative Note Manan Steele was greeted by the nurse who verified the patients name and . Patient was then taken to the fluoroscopy suite. Manan was interviewed and the medical record was reviewed. There were no medical contraindications to performing the bilateral lumbar medial branch nerve blocks. I first had a talk with the patient and discussed the potential risks, benefits, side effects, and alternatives of this procedure including but not limited to increased pain from the procedure, no pain relief, nerve damage, infection, and bleeding. @HE@ comprehended my conversation and accepts the risks and understands the goals of this diagnostic procedure. All questions and concerns from the patient were addressed. After I was comfortable that the patient was fully informed about this procedure, the printed consent form was signed. Standard time-out procedure was performed Manan was placed in the prone position on the fluoroscopy table and automated blood pressure cuff and pulse oximeter were applied. The anatomic target points of the segmental medial branches of bilateral L3-L5 medical branches were identified with fluoroscopy. Following thorough Chlorhexadine preparation of the skin and draping, a 25 gauge 3.5 spinal needle was placed under fluoroscopic guidance down on to the target point for each respective segmental medial branch.Position was confirmed in A/P, oblique and lateral views and 0.25 mls of Omnipaque-240 at each segmental nerve. At each level we injected 0.5ml of Bupivacaine 0.5%. (48 mls of Omnipaque was wasted) Manan 's vital signs were stable throughout the procedure and were as recorded in the docflowsheet by the nursing staff. Postoperatively, today patient demonstrates the following changes with hyperextension and with tenderness over the suspected joint(s). Provacative testing using the Gill's facet loading test Right side Left side Directly before the block VAS (0-10) = 6/10 VAS (0-10) = 6/10 5 minutes after the block VAS (0-10) = 1/10 VAS (0-10) = 1/10 Percentage relief obtained with this diagnostic block 80% 80% Any improved physical functioning directly after the blocks? Able to move his back much easier Next, Manan was asked to record the percent pain relief and any changes in provocative maneuvers for the next 4 hours. He will report this information at the next business day to one of our nurses. Based on the medial branches blocked today, if the patient meets insurance criteria for radiofrequency, the treatment should result in the denervation of the bilateral L4-L5 and L5-S1 facet joint nerves. We would expect to denervate a total of 4 facets during the radiofrequency ablation. Discharge plan:: He will call back with his 0-4 hour post-procedure pain scores. Post-procedure pain: VAS= 1/10. Manan Killian DO, MPH ABPMR-subspecialty board certification in Pain Medicine [facility]
== END 2022-11-23 07:39 | disposition home or self-care (01) ==
LOC: PC 07:42
PROVIDERS: PCP Nurse Practitioner Family; Visit Provider Preventive Medicine Occupational Medicine
DX: M47.817 Spondylosis without myelopathy or radiculopathy, lumbosacral region (principal)
CPT/HCPCS: 64493; 64494; 72100; Q9967

== ENCOUNTER 2023-01-26 10:21 | Outpatient (CLI) | payer MEDICARE, SELFPAY ==
[2023-01-26 10:28] VITALS: BP 116/77; PULSE 68; RESP 20; TEMP 36.3; O2SAT 99
--- NOTE | 2023-01-26 10:54 | DI.RAD_ITS ---
Exam(s) XR PAIN CLINIC LUMBAR SP 2V EXAM: XR PAIN CLINIC LUMBAR SP 2V CLINICAL HISTORY: DX: Lumbar Spondylosis TECHNIQUE: 2D and realtime digital imaging was performed. Radiologist not present. CONTRAST MATERIAL: None. COMPARISON: No exams were available for comparison FINDINGS: Fluoroscopy was provided for pain management therapy. Please refer to procedure report or details. Radiation Exposure Index: Ka,r=15.51 mGy IMPRESSION: As above. RADIATION DOSE DELIVERED:
--- NOTE | 2023-01-26 10:59 | PDOC.PAIN_ITS ---
Date of service: 01/26/23 Time of Service: 11:03 Pain Clinic Procedure Note Procedure Note Procedure Note: Lumbar/Sacral Medial Branch Blocks #2 Manan Patricio Steele has been referred to the [facility] Management [facility] for lumbar/sacral medial branch blocks. COMMENTS: He did very well with his first set of blocks on 11/29/22 (>80% pain relief for 4 hours) Dx: Lumbosacral spondylosis without myelopathy Pre-procedure pain VAS was 6/10 Patient was interviewed and the medical record reviewed. There were no medical, pharmacologic, radiographic or other structural contraindications to attempting fluoroscopically guided local anesthetic lumbar/sacral medial branch blocks. Risks and expected side effects as well as potential benefit of the procedure were reviewed and voiced concerns addressed. The printed consent form was signed and witnessed. Standard time-out procedure was performed. Patient was placed in the prone position on the fluoroscopy table and automated blood pressure cuff and pulse oximeter applied. The skin entry points for approaching the anatomic target points of the segmental medial branches of the bilateral L3, L4, and L5 were identified with anfluoroscopy and marked. Following thorough Chlorhexadine preparation of the skin and draping and 1% lidocaine infiltration of the skin entry points and subcutaneous tissues, a 22 gauge spinal needle was placed under fluoroscopic guidance down on to the target point for each respective segmental medial branch.Position was confirmed in A/P, oblique and lateral views with 0.25ml of omnipaque 240. Coult be this method .5ml 0.5% Bupivacaine was injected or 1% Lidocaine. Vital signs were stable throughout the procedure and were as recorded in the docflowsheet by the nursing staff. Follow up plans and appointments were discussed and was instructed to keep careful note of how the usual pain was modified by these injections. Specifically was asked to keep a pain diary for the next 4 hours using a numeric pain scale of 0-10 and report these results at the follow-up visit. Post procedure instruction was given as documented in the nursing documentation and having met discharge criteria. Patient was discharged from the [facility] Management [facility]. Based on the medial branches blocked today, if the patient has adequate relief and we are able to proceed to radiofrequency ablation, the treatment should result in the denervation of the bilateral L4-L5 and L5-S1 FACET JOINTS. We would expect to denervate a total of 4 facets during the radiofrequency ablation. COMMENTS: Post-procedure pain VAS was 0/10 Manan Killian DO, MPH ABPMR-Pain Management [facility] CC: Nikki Tripp
[2023-01-26] MEDS: Lidocaine 2% Pres-Free 5 ML VIAL IJ (11:02)
[2023-01-26] MEDS: Omnipaque 240 MG/ML 50 ML BTL IJ (11:02)
== END 2023-01-26 10:22 | disposition home or self-care (01) ==
LOC: PC 10:21
PROVIDERS: PCP Nurse Practitioner Family; Visit Provider Preventive Medicine Occupational Medicine
DX: M47.817 Spondylosis without myelopathy or radiculopathy, lumbosacral region (principal); M54.50 Low back pain, unspecified
CPT/HCPCS: 64493; 64494; 72100; Q9967

== ENCOUNTER 2023-02-09 07:43 | Outpatient (CLI) | payer MEDICARE, SELFPAY ==
[2023-02-09 07:51] VITALS: BP 135/79; PULSE 64; RESP 20; TEMP 36.1; O2SAT 98
[2023-02-09] MEDS: fentaNYL 100 MCG/2 ML VIAL IVP (08:22)
[2023-02-09] MEDS: Lactated Ringers 500 ML 80 ML IV (08:22)
[2023-02-09] MEDS: Midazolam 2 MG/2 ML VIAL IVP (08:22)
--- NOTE | 2023-02-09 08:59 | DI.RAD_ITS ---
Exam(s) XR PAIN CLINIC LUMBAR SP 2V EXAM: XR PAIN CLINIC LUMBAR SP 2V CLINICAL HISTORY: DX: Lumbar spondylosis. TECHNIQUE: Fluoroscopy was provided for the referring physician for guidance with performing pain cl inic injection procedure. COMPARISON: No exams were available for comparison FINDINGS: Please see procedure note for details. Fluoro time: 82.3 seconds RADIATION DOSE DELIVERED: Tierar=40.66 mGy
[2023-02-09 09:02] VITALS: BP 125/79; PULSE 68; RESP 16; O2SAT 98
--- NOTE | 2023-02-09 09:08 | PDOC.PAIN ---
Date of service: 02/09/23 Time of Service: 09:12 Pain Clinic Procedure Note Procedure Note Procedure Note: Bilateral Lumbar Radiofrequency with Avenos Machine PROCEDURE NOTE Date of Service: February 09, 2023 Patient: Manan Steele Provider: Manan Killian DO, MPH Pre Operative Diagnosis: Lumbosacral Spondylosis without Myelopathy Post Operative Diagnosis: Same Post procedure pain; VAS= 6/10 PROCEDURE: Radiofrequency Ablation of medial branches - Bilateral L3 L4 L5and lateral branches of bilateral S1. Manan Steele was brought into the fluoroscopy suite and positioned into the prone position on the fluoroscopy table and allowed to adjust to a position of comfort. A grounding pad was placed on the left abdomen. The lumbar region was widely prepped with a chloraprep solution, allowed to air dry and draped in standard sterile surgical fashion. Local anesthesia was provided by 4 mL of 2 % Lidocaine delivered with a 25g needle. A 17g 100 mm radiofrequency introducer needle was placed to the planned anatomic targets guided with intermittent fluoroscopy with a perpendicular approach to terminally place at the junction of the superior articular process and the transverse process of the bilateral L4, L5, the base of the sacral ala on the bilateral for the L5 medial branch nerve and the area between base of the sacral ala to the S1 foramen bilaterally. The stylets were removed and radiofrequency probes with a 4mm active tip were then inserted. Needle tip position of the probes was verified in the AP, oblique, and lateral views. At each site, the medial branch nerve was stimulated at 2 Hz to a maximum 1-2 volts determined to finalize safe needle and electrode placement. The patient was awake and responsive during this portion of the procedure. Each target was anesthetized with 1-2 mL of 2% Lidocaine for anesthesia for lesioning and then each target was lesioned at 80 degrees Celsius for 2 minutes and 30 seconds. Tissue impedences were noted to be between 250 and 500 Ohms. Electrodes and needles were then removed and bandages placed over the needle placement sites, the patient then returned to the supine position on a stretcher and transported to the recovery room without hemodynamic, neurologic, or allergic reactions. Fluoroscopic images were printed for hard copy recording and digitally archived. POST PROCEDURE EVALUATION: IMPRESSION: 1. Summary of procedure. Medication given is documented in the MAR. 2. The patient will be contacted in 1-3 weeks 3. Estimated Blood Loss: <5 mls 4. Fluoroscopy time: Documented in the EMR. Follow up plans and appointments were discussed with the Manan . Post procedure instruction was given as documented in nursing documentation and having met discharge criteria, Manan was discharged from the Pain Management Center. COMMENTS: No apparent complications. Post-procedure pain: VAS= 0/10. If this procedure gives him at least 50% pain improvement for at least 6 months, he can repeat this procedure without repeating the blocks. F/U with our office as needed. Manan Killian DO, MPH [facility]
[2023-02-09] MEDS: Bupivacaine 0.5% Pres-Free 10 ML VIAL IJ (09:21)
[2023-02-09] MEDS: Lidocaine 2% Pres-Free 5 ML VIAL IJ (09:22)
[2023-02-09] MEDS: methylPREDNISolone ACETATE 40 MG/ML VIAL IJ (09:23)
== END 2023-02-09 07:44 | disposition home or self-care (01) ==
LOC: PC 07:45
PROVIDERS: PCP Nurse Practitioner Family; Visit Provider Preventive Medicine Occupational Medicine
DX: M47.817 Spondylosis without myelopathy or radiculopathy, lumbosacral region (principal); M54.50 Low back pain, unspecified
CPT/HCPCS: 64635; 64636; 72100; J1030; J2250; J3010

== ENCOUNTER 2023-04-20 12:52 | Outpatient (REF) | payer MEDICARE, SELFPAY ==
[2023-04-20 14:35] LABS: Abs Immature Grans 0.04 10^3/uL (0.0-0.06); Absolute Basophil Count 0.03 10^3/uL (0.0-0.2); Absolute Eosinophil Count 0.21 10^3/uL (0.0-0.7); Absolute Lymphocyte Count 1.77 10^3/uL (1.2-3.4); Absolute Monocyte Count 0.69 10^3/uL (0.1-0.8); Absolute Neutrophil Count 4.41 10^3/uL (1.2-6.7); Basophils % 0.4; Eosinophils % 2.9; HCT 45.4 % (40.0-50.0); HGB 15.5 g/dL (13.5-17.5); Immature Grans % 0.6; Lymphocytes % 24.8; MCH 30.2 pg (27.0-33.0); MCHC 34.1 % (32.0-36.0); MCV 89 fL (80-95); MPV 11.3 fL (8.0-11.0); Monocytes % 9.7; Neutrophils % 61.6; Platelet Count 213 10^3/uL (130-400); RBC 5.13 10^6/uL (4.36-5.78); RDW 12.8 % (11.8-14.1); RDW-SD 41.9 fL; WBC 7.15 10^3/uL (4.4-10.8)
[2023-04-20 15:20] LABS: ALT 64 U/L (16-63); AST 33 U/L (15-37); Albumin 4.1 g/dL (3.4-5.0); Alkaline Phosphatase 95 U/L (46-116); Anion Gap 11.4 mmol/L (3-11); BUN 24 mg/dL (7-18); Bilirubin, Total 0.3 mg/dL (0.2-1.0); CO2 25.6 mmol/L (21.0-32.0); CREATININE 1.2 mg/dL (0.70-1.30); Calcium 9.3 mg/dL (8.5-10.1); Chloride 105 mmol/L (98-107); Estimated GFR 65.46 (mL/min/1.73m2); Glucose 87 mg/dL (74-106); Potassium 4.1 mmol/L (3.5-5.1); Sodium 142 mmol/L (136-145); Total Protein 7.5 g/dL (6.4-8.2)
[2023-04-20 16:02] LABS: Hemoglobin A1C 5.6 % (<5.7)
== END 2023-04-20 12:53 | disposition home or self-care (01) ==
LOC: NCHCN 12:52
PROVIDERS: PCP Nurse Practitioner Family; Visit Provider Nurse Practitioner Family
DX: M48.00 Spinal stenosis, site unspecified (principal); K76.0 Fatty (change of) liver, not elsewhere classified; G47.33 Obstructive sleep apnea (adult) (pediatric); M25.50 Pain in unspecified joint; I25.10 Atherosclerotic heart disease of native coronary artery without angina pectoris; I10 Essential (primary) hypertension; E78.5 Hyperlipidemia, unspecified; R39.9 Unspecified symptoms and signs involving the genitourinary system
CPT/HCPCS: 80053; 83036; 85025

== ENCOUNTER 2023-05-15 21:53 | Inpatient (IN) | payer MEDICARE, SELFPAY ==
[2023-05-15] VITALS (11 sets, daily range): BP systolic 122; BP diastolic 71; PULSE 105–122; RESP 6–32; TEMP 37.2; O2SAT 95–96
--- NOTE | 2023-05-15 22:00 | RT.EKG_ITS ---
APPROVED REPORT Exam: Resting ECG Reason for Exam: weakness Patient Location: E HR:115 bpm ECG Measurements Heart Rate 115 AXIS CO 172 P 66 QRSd 91 QRS -41 QT 340 T 7 QTc 471 Conclusion Sinus tachycardia...rate> 99 Inferior infarct, old...Q >35mS, II III aVF Consider anterior infarct...Q >30mS in V2-V5
--- NOTE | 2023-05-15 22:15 | DI.CT_ITS ---
Exam(s) CT HEAD CERVICAL SPINE WO EXAM: CT HEAD CERVICAL SPINE WO CLINICAL HISTORY: falls. TECHNIQUE: Imaging Protocol: Axial computed tomography images with coronal and sagittal reformatted images were created and reviewed COMPARISON: CT CT HEAD WO from 12/17/[address] HEAD WO from 02/07/2022 FINDINGS: BRAIN: There are no skull fractures nor fluid in the visualized paranasal sinuses. There is no evidence of intracranial hemorrhage, mass effect, or shift of midline structures. There are no extra-axial fluid collections. Ventricular size is slightly prominent but unchanged. There i s no blood within the ventricular system nor within the basal cisterns. Small parenchymal calcification in the right cerebellar hemispheres again noted. No new calcificatio ns evident. CERVICAL SPINE: There is no evidence of fracture nor listhesis. No significant prevertebral soft tissue swelling. There is chronic disc space narrowing at C6-7 level and C5-6 level. There are bilateral Luschka join t osteophytes at these 2 levels evident. Some facet joint degenerative changes are evident at C3-4 level, less so at other levels. There is no significant facet joint malalignment. No significant osseous lesions evident. IMPRESSION: No acute intracranial findings on this noninfused CT scan of the brain. No evidence of cervical spine fracture, malalignment, nor acute compromise of the cervical spinal can al. Multilevel chronic degenerative disc disease C5-6 and C6-7 levels RADIATION DOSE DELIVERED: Total DLP DATA REPOSITORY: All CT scans at this facility are submitted to the National Radiology Data Registry (NRDR) Dose Index Registry (DIR) with the [employer] (ACR). RADIATION OPTIMIZATION: All CT scans at this facility use at least one of these dose optimization te chniques: automated exposure control; mA and/or kV adjustment per patient size (includes targeted exa ms where dose is matched to clinical indication); or iterative reconstruction.
--- NOTE | 2023-05-15 22:17 | W.ED.GENAD ---
Discharge Plan Discharge Details Chief Complaint: Fever Clinical Impression: Weakness, Falls, Fever, Back contusion Primary Care Provider: Nikki Tripp ED Provider: Raghavendra Carlson Home Meds and New Rx's Prescriptions: No Action acetaminophen [Tylenol Arthritis Pain] 650 mg tablet extended release 650 mg PO Q8H gabapentin 300 mg capsule See Rx Instructions PO BID Qty: 270 3RF Rx Instructions: 300mg am and 600mg at bedtime orally twice a day; diclofenac sodium [Voltaren Arthritis Pain] 1 % gel 2 g topical QID Rx Instructions: apply to single elbow, wrist or hand; for hand includes palm/fingers/back of hand docusate sodium [Colace] 100 mg capsule 100 mg PO BID PRN tamsulosin 0.4 mg capsule 0.4 mg PO DAILY simvastatin 20 mg tablet 20 mg PO QHS multivitamin [Once Daily] 1 EACH tablet 1 tab PO DAILY lisinopril 20 MG tablet 20 mg PO DAILY aspirin [Ecotrin Low Strength] 81 MG tablet,delayed release (DR/EC) 81 mg PO DAILY nitroglycerin 0.4 MG tablet, sublingual 1 tab Sublingual DIRECTED PRN cholecalciferol (vitamin D3) 1,000 UNITS tablet 1 tab PO DAILY Medical Decision Making 67 yo male with hx of hld who comes in with family with reports that he's had intermittent fevers since 05/05 and constant weakness and has fallen multiple times due to weakness. Denies cough, rashes, known tick bites, dyspnea, cough, vomiting, diarrhea. Pt arrives tachycardic but otherwise stable vitals. He is caox4 but appears fatigued. He has no significant signs of trauma. HE has clear lungs, mild tenderness in the ruq on abdominal exam, no rashes noted. He also has lower thoracic and upper lumbar spine tenderness without palpable or visible deformities. Given his age, weakness and reported falls and fever will initiate workup with ct head/c spine to evaluate for traumatic injuries, ct chest to evaluate for infiltrates and less likely pe, and given the ruq tenderness obtain ct abd/pelvis to evaluate for gallbladder pathology. Will also obtain recons of the thoracic and lumbar spine, cbc, cmp, procalcitonin, fluvid, tick panel and ua. 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 pt will be signed out to oncoming provider pending labs, imaging, dispo. Differential Diagnosis Differential Diagnosis: tick illness, pneumonia, cholecystitis, Medical Records Medical records reviewed: Yes I reviewed the patient's medical records. HPI General Mode of arrival: ambulatory. Date/Time Provider Initiated Documentation: 05/15/23 21:54. Limitations to Documentation: no limitations. Information obtained by: patient and family. History of Present Illness 67 year old M presents to the emergency department with the chief complaint of fever, Patient started experiencing this week(s) (2) and it has been constant. No relieving factors improve symptom(s), No exacerbating factors reported . Patient notes weakness. Related Data Home Medications Medication Instructions Recorded Confirmed aspirin 81 mg tablet,delayed 81 mg PO DAILY 03/13/17 02/09/23 release (Ecotrin Low Strength) cholecalciferol (vitamin D3) 25 1 tab PO DAILY 03/13/17 02/09/23 mcg (1,000 unit) tablet lisinopril 20 mg tablet 20 mg PO DAILY 03/13/17 02/09/23 multivitamin (Once Daily tablet) 1 tab PO DAILY 03/13/17 02/09/23 nitroglycerin 0.4 mg sublingual 1 tab sublingual DIRECTED PRN 03/13/17 02/09/23 tablet simvastatin 20 mg tablet 20 mg PO QHS 03/07/22 02/09/23 tamsulosin 0.4 mg capsule 0.4 mg PO DAILY 03/07/22 02/09/23 acetaminophen 650 mg 650 mg PO Q8H 06/15/22 02/09/23 tablet,extended release (Tylenol Arthritis Pain) gabapentin 300 mg capsule See Rx Instructions PO BID #843 06/15/22 02/09/23 caps diclofenac sodium 1 % topical gel 2 g topical QID 08/19/22 02/09/23 (Voltaren Arthritis Pain) docusate sodium 100 mg capsule 100 mg PO BID PRN 08/19/22 02/09/23 (Colace) Previous Rx's Medication Instructions Recorded gabapentin 300 mg capsule See Rx Instructions PO BID #270 06/15/22 caps Allergies Allergy/AdvReac Type Severity Reaction Status Date / Time atorvastatin [From Lipitor] Allergy Mild Verified 02/09/23 07:45 naproxen Allergy Unknown Unverified 02/09/23 07:45 General Stated Complaint: Fever SARAH: 3 Review of Systems All systems reviewed & are unremarkable except as noted in HPI and below Constitutional Constitutional: Reports chills and Reports fever(s) Cardiovascular Cardiovascular: Denies chest pain and Denies dyspnea Respiratory Respiratory: Denies cough and Denies dyspnea Gastrointestinal Gastrointestinal: Denies abdominal pain, Denies nausea and Denies vomiting Genitourinary Genitourinary: Denies dysuria Integumentary/Breasts Skin/Breast: Denies rash PFSH All Active Problems (Updated 05/15/23 @ 22:25 by Raghavendra Carlson MD) Weakness (Acute) Falls (Acute) Fever (Acute) Back contusion (Acute) Lumbosacral spondylosis without myelopathy (Acute) Back pain (Acute) Leg pain (Acute) Arthritis of right shoulder region (Acute) Angina pectoris (Chronic) Prediabetes (Acute) Chest pain (Acute) Medical History CAD (coronary artery disease) Choroidal nevus History of wound infection Hx of colonic polyps Hydrocele, right Hyperlipidemia Hypertension Nevus of choroid of right eye Obesity Obstructive sleep apnea Rectus diastasis of lower abdomen Spinal stenosis Squamous cell carcinoma Steatosis of liver Tobacco abuse Surgical History S/P hernia repair Family History Mother Alzheimer disease Father Heart disease Hypertension Social History Smoking/Tobacco Use Status: Former Tobacco Use Smoking risk assessment performed?: Yes Alcohol Intake: current Alcohol Intake frequency: holidays/special occasions only Drug use: Never Substance use type: does not use Household members: spouse Housing: house Number of Children: 1 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 Exam Const General: no acute distress Orientation: alert HENMT Head: normal to inspection Ears: external ears normal General nose exam: external nose normal Mouth: moist mucous membranes Eyes General: appearance normal, both eyes and all related structures Neck Neck: normal visual inspection Resp Effort & Inspection: normal respiratory effort and able to speak in complete sentences Auscultation: clear to auscultation bilaterally Cardio Rate: regular rate GI Palpation: soft and tender Skin General skin exam: no rashes or lesions noted Neuro General: patient alert and patient oriented x3 Extrem General: normal to inspection Psych Mental Status: mental status grossly normal Course Vital Signs Vital signs: Vital Signs Temperature 37.2 C 05/15/23 22:03 Pulse 122 H 05/15/23 22:03 Blood Pressure 122/71 05/15/23 22:03 Pulse Oximetry 95 05/15/23 22:03 Temperature 37.2 C 05/15/23 22:03 Temperature Source Tympanic 05/15/23 22:03 Pulse 122 H 05/15/23 22:03 Respiratory Effort Normal, Non-Labored 05/15/23 22:12 Blood Pressure 122/71 05/15/23 22:03 Pulse Oximetry 95 05/15/23 22:03 Oxygen Delivery Method Room Air 05/15/23 22:03 Oxygen Flow Rate 0 05/15/23 22:03 Pain Level 0 05/15/23 22:03 Comment patient received tyleno at home at 8:15pm 05/15/23 22:03 Lab/Test Results Lab/Test Results: 05/15/23 22:12 Blood Blood Culture - Pending 05/15/23 22:12 Blood Blood Culture - Pending
--- NOTE | 2023-05-15 22:19 | DI.CT_ITS ---
Exam(s) CT CHEST/ABD/PEL W EXAM: CT CHEST/ABD/PEL W CLINICAL HISTORY: fever, right upper abdomen pain, tachycardia. TECHNIQUE: Imaging Protocol: Axial computed tomography images with coronal and sagittal reformatted images were created and reviewed CONTRAST MATERIAL: Intravenous: Omnipaque 350 Contrast volume:100 ml Oral: None COMPARISON: CT CT THORAX ABD/PEL CTA from 02/07/2022 FINDINGS: CHEST: LUNGS: No confluent infiltrates nor pleural effusions. No ominous pulmonary nodules. No significant focal findings in the trachea and mainstem bronchi. There is no bronchiectasis.. MEDIASTINUM: There is no hilar nor mediastinal adenopathy. Visualized thyroid unremarkable. CARDIAC: Heart size is normal. There is no pericardial effusion.Caliber of the thoracic aorta is wit hin normal limits. OSSEOUS: No significant osseous lesions.No fractures evident.. ABDOMEN: There is no ascites. LIVER: There are no focal hepatic lesions nor dilatation of intrahepatic ducts. GALLBLADDER/BILIARY: No obvious gallbladder pathology. CBD is not dilated. PANCREAS: No evidence of pancreatic mass nor dilatation of the pancreatic duct. SPLEEN: Spleen is not enlarged. There are no intrasplenic lesions. ADRENALS: There are no significant adrenal masses. KIDNEYS: No calculi nor hydronephrosis. No solid renal masses. No cysts evident. ABDOMINAL AORTA: Abdominal aorta is not enlarged. LYMPH NODES: There is no retroperitoneal nor paraaortic adenopathy. ABDOMINAL WALL: Is density at left inguinal ring which is most probably from hernia repair. Fat only containing right inguinal hernia. GI: There is no evidence of bowel obstruction. PELVIS: LYMPH NODES: There is no intrapelvic nor inguinal adenopathy. GI: Appendix appears to be surgically absent.No evidence of sigmoid diverticulitis. URINARY BLADDER: No calculi nor masses evident REPRODUCTIVE: Prostate enlarged. OSSEOUS: No significant osseous lesions. No fractures. IMPRESSION: 1. Suboptimal contrast injection. No acute intrathoracic findings and no acute intra-abdominal findi ngs. 2. There is evidence of prior left inguinal hernia repair. There is a fat containing right inguinal hernia. 3. Enlarged prostate gland. 4. If there is concern for spinal abscess than recommend MRI with IV contrast. First read by [facility] RADIATION DOSE DELIVERED: Total DLP DATA REPOSITORY: All CT scans at this facility are submitted to the National Radiology Data Registry (NRDR) Dose Index Registry (DIR) with the [employer] (ACR). RADIATION OPTIMIZATION: All CT scans at this facility use at least one of these dose optimization te chniques: automated exposure control; mA and/or kV adjustment per patient size (includes targeted exa ms where dose is matched to clinical indication); or iterative reconstruction.
--- NOTE | 2023-05-15 22:19 | DI.CT_ITS ---
Exam(s) CT THORACIC LUMBAR SPINE REC EXAM: CT THORACIC LUMBAR SPINE REC CLINICAL HISTORY: thoracic and lumbar spine, pain TECHNIQUE: COMPARISON: No exams were available for comparison FINDINGS: THORACIC SPINAL COLUMN: No evidence of fracture, listhesis, nor facet malalignment. No disc space na rrowing. No osseous lesions. LUMBOSACRAL SPINAL COLUMN: No evidence of fracture or listhesis nor facet malalignment. There is vac uum phenomena and moderate disc space narrowing at L3-4 and vacuum phenomenon without disc space narr owing at L5-S1. Posterior bony ridging seen at these levels. No bone destruction evident. Some vac uum phenomenon seen within lower facet joints. IMPRESSION: No fractures of the thoracic and lumbar spines. No osseous canal compromise. Given the history here if clinically indicated follow-up MRI with contrast can be performed to determ ine if there is evidence of spinal abscess.
[2023-05-15 22:36] LABS: Abs Immature Grans 0.05 10^3/uL (0.0-0.06); Absolute Basophil Count 0.07 10^3/uL (0.0-0.2); Absolute Eosinophil Count 0.01 10^3/uL (0.0-0.7); Absolute Monocyte Count 0.43 10^3/uL (0.1-0.8); Absolute Neutrophil Count 10.81 10^3/uL (1.2-6.7); Basophils % 0.6; Eosinophils % 0.1; HCT 40.9 % (40.0-50.0); Immature Grans % 0.4; Lymphocytes % 7.3; MCH 29.2 pg (27.0-33.0); MCHC 34.2 % (32.0-36.0); MCV 85 fL (80-95); MPV 10.8 fL (8.0-11.0); Monocytes % 3.5; Neutrophils % 88.1; Platelet Count 247 10^3/uL (130-400); RBC 4.79 10^6/uL (4.36-5.78); RDW 14.5 % (11.8-14.1); RDW-SD 45.6 fL; WBC 12.27 10^3/uL (4.4-10.8)
[2023-05-15 22:50] LABS: INR 1.1 (0.9-1.1); Prothrombin Time 10.7 sec (9.3-11.0)
[2023-05-15] MEDS: Normal Saline 1,000 ML 1000 ML IV (22:55)
[2023-05-15 23:04] LABS: ALT 144 U/L (16-63); AST 62 U/L (15-37); Albumin 2.7 g/dL (3.4-5.0); Alkaline Phosphatase 112 U/L (46-116); BUN 18 mg/dL (7-18); Bilirubin, Total 0.8 mg/dL (0.2-1.0); CREATININE 1.2 mg/dL (0.70-1.30); Calcium 8.3 mg/dL (8.5-10.1); Chloride 97 mmol/L (98-107); Estimated GFR 65.46 (mL/min/1.73m2); Glucose 159 mg/dL (74-106); Magnesium 1.8 mg/dL (1.8-2.4); Potassium 3.9 mmol/L (3.5-5.1); Sodium 132 mmol/L (136-145); TSH (W/Ref FT4) 1.33 uIU/mL (0.36-3.74); Total Protein 7.7 g/dL (6.4-8.2); Troponin I < 50 ng/L (<or=60)
[2023-05-15 23:07] LABS: Procalcitonin 1.1 ng/mL
[2023-05-15 23:12] LABS: COVID-19 PCR Negative (Negative); Influenza A PCR Negative (Negative); Influenza B PCR Negative (Negative); RSV PCR Negative (Negative)
[2023-05-15 23:14] LABS: Source Nasopharynx
[2023-05-15] MEDS: Omnipaque 350 MG/ML 100 ML BTL IJ (23:18)
[2023-05-15] MEDS: Normal Saline - Diluent 50 ML VIAL IJ (23:19)
[2023-05-15] MEDS: Normal Saline Flush 10 ML SYR IVP (23:19)
[2023-05-16] VITALS (94 sets, daily range): BP systolic 98–194; BP diastolic 59–110; PULSE 85–127; RESP 17–52; TEMP 37.1–40; O2SAT 72–98
[2023-05-16] MEDS: Omnipaque 350 MG/ML 50 ML BTL IJ (00:05)
[2023-05-16] MEDS: ACETAMINOPHEN 1,000 MG/100 ML BTL 400 MG IVPB (01:05)
[2023-05-16 01:20] LABS: Troponin I < 50 ng/L (<or=60)
--- NOTE | 2023-05-16 01:20 | DI.VRAD_ITS ---
PROCEDURE INFORMATION: Exam: CT Head Without Contrast Exam date and time: 05/15/2023 11:33 PM Age: 67 years old Clinical indication: Injury or trauma; Other: Falls; Injury date: 05/15/23 TECHNIQUE: Imaging protocol: Computed tomography of the head without contrast. Radiation optimization: All CT scans at this facility use at least one of these dose optimization techniques: automated exposure control; mA and/or kV adjustment per patient size (includes targeted exams where dose is matched to clinical indication); or iterative reconstruction. COMPARISON: CT HEAD WO 02/07/2022 3:35 PM FINDINGS: Brain: Small vessel ischemic changes in the periventricular white matter. No evidence of an acute cortical infarct. Cerebral ventricles: No ventriculomegaly. Paranasal sinuses: Visualized sinuses are unremarkable. No fluid levels. Mastoid air cells: Visualized mastoid air cells are well aerated. Bones/joints: Unremarkable. No acute fracture. Soft tissues: Unremarkable. IMPRESSION: No acute intracranial abnormality. Changes of an acute infarct may not be visible on CT for up to 24 to 48 hours. PROCEDURE INFORMATION: Exam: CT Cervical Spine Without Contrast Exam date and time: 05/15/2023 11:33 PM Age: 67 years old Clinical indication: Injury or trauma; Other: Falls; Injury date: 05/15/23 TECHNIQUE: Imaging protocol: Computed tomography of the cervical spine without contrast. Radiation optimization: All CT scans at this facility use at least one of these dose optimization techniques: automated exposure control; mA and/or kV adjustment per patient size (includes targeted exams where dose is matched to clinical indication); or iterative reconstruction. COMPARISON: CT HEAD WO 02/07/2022 3:35 PM FINDINGS: Bones/joints: Degenerative spondylitic changes. No central canal stenosis. No acute fracture. No acute malalignment. Lungs: Lung apices are normal. Soft tissues: Unremarkable. IMPRESSION: No acute bony abnormality. Dictated and Authenticated by: Manan Dan MD. Ordering:LING Mabry MD
--- NOTE | 2023-05-16 01:22 | ED.PROG_ITS ---
Date of service: 05/16/23 Time of Service: 01:22 Medical Decision Making Patient was signed out to me by my colleague Dr. Raghavendra Carlson. Please refer to his HPI, physical exam, assessment and plan. At time of signout we are pending work-up, as well as CT imaging. Concern was for potential underlying infectious etiology in his urine, or back as the patient had been having complaints of back pain for the last week. Laboratory work-up shows mildly elevated white count, urinalysis is relatively benign. Procalcitonin mildly elevated at 1.1. Troponin normal. Pending Lyme panel. COVID flu and RSV is negative. CT scan of the head neck chest abdomen pelvis is negative for significant acute process. No evidence of spinal abscess is noted. I did go and reassess the patient. He demonstrates no nuchal rigidity on exam. Negative Kernig's and Brudzinski sign. He does complain of some chronic neck pain and a very mild headache but also states that this is better than it was and it is not bad currently. He does states that he had had some bowel movement accidents at home, but states that this was because he was weak and could not get to the bathroom. Exam here demonstrates no saddle anesthesia. Good rectal tone, and intact strength for the lower extremities. No clinical evidence of cauda equina syndrome. With no severe or significant headache, negative Kernig's and Brudzinski sign, do not see indication for emergent lumbar puncture at this stage. Symptoms appear inconsistent with meningitis currently, however the patient's history is slightly atypical. With the more consistent history of low back pain per the son, and per the patient that has been present for the last few days, I am more concerned about a spinal abscess. This also does lead to some concern for performing lumbar puncture if there is potentially an abscess. I do feel that empiric antibiotic should be started. We will give vancomycin and cefepime as this will cover Pseudomonas, gram-positive's, and give good MEN'[employer] LOCK[employer] RO[employer]ENDANT penetration. We will hold off on any steroids for the meantime, defer to inpatient team if the patient does later develop symptoms that would be more consistent with meningitis later compared to his current clinical status. Discussed the case with the hospitalist. We will admit for MRI and continued monitoring and blood culture results. I have extensively reviewed the treatment plan and discharge instructions with the patient and their family. I have addressed all patient concerns at this time. The patient and family was made aware of what symptoms to monitor for that would warrant a return to the emergency department. Discussed the plan with the patient and family, they demonstrate verbal understanding and agreement with our assessment and plan at this time. The documentation in this chart was dictated using [employer] dictation software. Please excuse any dictation errors. FINDINGS: Brain: Small vessel ischemic changes in the periventricular white matter. No evidence of an acute cortical infarct. Cerebral ventricles: No ventriculomegaly. Paranasal sinuses: Visualized sinuses are unremarkable. No fluid levels. Mastoid air cells: Visualized mastoid air cells are well aerated. Bones/joints: Unremarkable. No acute fracture. Soft tissues: Unremarkable. IMPRESSION: No acute intracranial abnormality. Changes of an acute infarct may not be visible on CT for up to 24 to 48 hours. FINDINGS: Bones/joints: Degenerative spondylitic changes. No central canal stenosis. No acute fracture. No acute malalignment. Lungs: Lung apices are normal. Soft tissues: Unremarkable. IMPRESSION: No acute bony abnormality. Thank you for allowing us to participate in the care of your patient. Dictated and Authenticated by: Manan Dan MD 05/16/2023 1:19 AM Eastern Time ([place] & [place]) FINDINGS: Bones/joints: No acute fracture. Normal alignment. No significant disc bulge or herniation. No severe spinal canal stenosis. No significant neural foraminal narrowing. Soft tissues: Unremarkable. IMPRESSION: Unremarkable CT Spine. FINDINGS: Bones/joints: No visualized fracture. Alignment is intact. Intervertebral disc space narrowing L3-L4 and L5-S1, with associated vacuum disc phenomenon. Posterior disc osteophyte complex, resulting in at least mild central canal stenosis and bilateral foraminal stenosis. Bilateral hypertrophic facet arthropathy. Broad-based disc bulge, ligamentum flavum hypertrophy and hypertrophic facet arthropathy, resulting in at least mild central canal stenosis. Bilateral foraminal stenosis. Broad-based disc bulge and posterior disc osteophyte complex, ligamentum flavum hypertrophy and hypertrophic facet arthropathy, resulting in at least mild central canal stenosis and bilateral foraminal stenosis. Broad-based disc bulge, resulting in effacement of the anterior thecal sac. Ligamentum flavum hypertrophy and hypertrophic facet arthropathy, suggesting mild central canal stenosis and bilateral foraminal stenosis. Posterior disc osteophyte complex and possible central disc protrusion, resulting in effacement of the anterior thecal sac. No significant foraminal stenosis. Spinal cord: It is difficult to evaluate the central canal secondary to artifact. Soft tissues: Unremarkable. IMPRESSION: 1. No acute findings are evident. 2. Multilevel degenerative change resulting in varying degrees of central canal and foraminal stenosis as above. It is difficult to evaluate the central canal secondary to artifact. Thank you for allowing us to participate in the care of your patient. Dictated and Authenticated by: Dash Love MD 05/16/2023 2:01 AM Eastern Time ([place] & [place]) FINDINGS: Limitations: Respiratory motion artifact Lungs: Bibasilar atelectasis. Pleural spaces: Unremarkable. No pneumothorax. No pleural effusion. Heart: Unremarkable. No cardiomegaly. No pericardial effusion. Lymph nodes: Unremarkable. No enlarged lymph nodes. Vasculature: Unremarkable. No aortic aneurysm. Bones/joints: Unremarkable. No acute fracture. Soft tissues: Unremarkable. IMPRESSION: No acute findings. FINDINGS: Liver: Normal. No mass. Gallbladder and bile ducts: Normal. No calcified stones. No ductal dilation. Pancreas: Normal. No ductal dilation. Spleen: Normal. No splenomegaly. Adrenal glands: Normal. No mass. Kidneys and ureters: Normal. No hydronephrosis. Stomach and bowel: Unremarkable. No obstruction. No mucosal thickening. Appendix: No evidence of appendicitis. Intraperitoneal space: Unremarkable. No free air. No significant fluid collection. Vasculature: Unremarkable. No abdominal aortic aneurysm. Lymph nodes: Unremarkable. No enlarged lymph nodes. Urinary bladder: Unremarkable as visualized. Reproductive: Prostatomegaly Bones/joints: Unremarkable. No acute fracture. Soft tissues: There is fluid within the left inguinal canal. Fat containing right inguinal hernia. IMPRESSION: 1. No acute findings. 2. If there is concern for spinal abscess, consider MRI imaging with contrast. Thank you for allowing us to participate in the care of your patient. Sign Out Sign Out Data: Sign Out Comment: since 05/05 reported fevers, general weakness and falls, pending labs, imaging reassessment. Last updated by Raghavendra Carlson MD at 05/15/23 22:29 Discharge Plan Disposition Patient Disposition: Admit to [facility] Condition: Improving Discharge Details Chief Complaint: Fever Clinical Impression: Weakness, Falls, Fever, Back contusion Admit Date/Time: 07/25/23 03:02 Admit Provider: Shannan Roberson Attending Provider: Shannan Roberson Primary Care Provider: Nikki Tripp ED Provider: Gerardo Steven
--- NOTE | 2023-05-16 01:48 | DI.VRAD_ITS ---
PROCEDURE INFORMATION: Exam: CT Chest With Contrast; Diagnostic Exam date and time: 05/15/2023 11:39 PM Age: 67 years old Clinical indication: Other: Tachycardia; Patient HX: Fever 5 days, ruq pain; Additional info: Concern for spinal abscess TECHNIQUE: Imaging protocol: Diagnostic computed tomography of the chest with contrast. Radiation optimization: All CT scans at this facility use at least one of these dose optimization techniques: automated exposure control; mA and/or kV adjustment per patient size (includes targeted exams where dose is matched to clinical indication); or iterative reconstruction. Contrast material: OMNIPAQUE 350; Contrast volume: 140 ml; Contrast route: INTRAVENOUS (IV); COMPARISON: CT THORAX ABD/PEL CTA 02/07/2022 3:46 PM FINDINGS: Limitations: Respiratory motion artifact Lungs: Bibasilar atelectasis. Pleural spaces: Unremarkable. No pneumothorax. No pleural effusion. Heart: Unremarkable. No cardiomegaly. No pericardial effusion. Lymph nodes: Unremarkable. No enlarged lymph nodes. Vasculature: Unremarkable. No aortic aneurysm. Bones/joints: Unremarkable. No acute fracture. Soft tissues: Unremarkable. IMPRESSION: No acute findings. PROCEDURE INFORMATION: Exam: CT Abdomen And Pelvis With Contrast Exam date and time: 05/15/2023 11:39 PM Age: 67 years old Clinical indication: Other: Tachycardia; Patient HX: Fever 5 days, ruq pain; Additional info: Concern for spinal abscess TECHNIQUE: Imaging protocol: Computed tomography of the abdomen and pelvis with contrast. Radiation optimization: All CT scans at this facility use at least one of these dose optimization techniques: automated exposure control; mA and/or kV adjustment per patient size (includes targeted exams where dose is matched to clinical indication); or iterative reconstruction. Contrast material: OMNIPAQUE 350; Contrast volume: 140 ml; Contrast route: INTRAVENOUS (IV); COMPARISON: CT THORAX ABD/PEL CTA 02/07/2022 3:46 PM FINDINGS: Liver: Normal. No mass. Gallbladder and bile ducts: Normal. No calcified stones. No ductal dilation. Pancreas: Normal. No ductal dilation. Spleen: Normal. No splenomegaly. Adrenal glands: Normal. No mass. Kidneys and ureters: Normal. No hydronephrosis. Stomach and bowel: Unremarkable. No obstruction. No mucosal thickening. Appendix: No evidence of appendicitis. Intraperitoneal space: Unremarkable. No free air. No significant fluid collection. Vasculature: Unremarkable. No abdominal aortic aneurysm. Lymph nodes: Unremarkable. No enlarged lymph nodes. Urinary bladder: Unremarkable as visualized. Reproductive: Prostatomegaly Bones/joints: Unremarkable. No acute fracture. Soft tissues: There is fluid within the left inguinal canal. Fat containing right inguinal hernia. IMPRESSION: 1. No acute findings. 2. If there is concern for spinal abscess, consider MRI imaging with contrast. Dictated and Authenticated by: Dash Love MD. Ordering:LING Mabry MD
[2023-05-16 01:59] LABS: Bilirubin Negative (Negative); Blood Trace-intact (Negative); Clarity Clear (Clear); Glucose Negative (Negative); Ketones Negative (Negative); Leukocyte Esterase Negative (Negative); Nitrite Negative (Negative)
--- NOTE | 2023-05-16 02:01 | DI.VRAD_ITS ---
PROCEDURE INFORMATION: Exam: CT Thoracic Spine Without Contrast Exam date and time: 05/15/2023 11:39 PM Age: 67 years old Clinical indication: Low back pain; Pain in thoracic spine; Other: Not specified; Patient HX: Fever for 5 days, back pain; Additional info: Concern for spinal abscess TECHNIQUE: Imaging protocol: Computed tomography of the thoracic spine without contrast. Radiation optimization: All CT scans at this facility use at least one of these dose optimization techniques: automated exposure control; mA and/or kV adjustment per patient size (includes targeted exams where dose is matched to clinical indication); or iterative reconstruction. COMPARISON: CT HEAD CERVICAL SPINE WO 05/15/2023 11:33 PM FINDINGS: Bones/joints: No acute fracture. Normal alignment. No significant disc bulge or herniation. No severe spinal canal stenosis. No significant neural foraminal narrowing. Soft tissues: Unremarkable. IMPRESSION: Unremarkable CT Spine. PROCEDURE INFORMATION: Exam: CT Lumbar Spine Without Contrast Exam date and time: 05/15/2023 11:39 PM Age: 67 years old Clinical indication: Low back pain; Pain in thoracic spine; Other: Not specified; Patient HX: Fever for 5 days, back pain; Additional info: Concern for spinal abscess TECHNIQUE: Imaging protocol: Computed tomography of the lumbar spine without contrast. Radiation optimization: All CT scans at this facility use at least one of these dose optimization techniques: automated exposure control; mA and/or kV adjustment per patient size (includes targeted exams where dose is matched to clinical indication); or iterative reconstruction. COMPARISON: MR LUMBAR SPINE WO 02/18/2022 2:29 PM FINDINGS: Bones/joints: No visualized fracture. Alignment is intact. Intervertebral disc space narrowing L3-L4 and L5-S1, with associated vacuum disc phenomenon. Posterior disc osteophyte complex, resulting in at least mild central canal stenosis and bilateral foraminal stenosis. Bilateral hypertrophic facet arthropathy. Broad-based disc bulge, ligamentum flavum hypertrophy and hypertrophic facet arthropathy, resulting in at least mild central canal stenosis. Bilateral foraminal stenosis. Broad-based disc bulge and posterior disc osteophyte complex, ligamentum flavum hypertrophy and hypertrophic facet arthropathy, resulting in at least mild central canal stenosis and bilateral foraminal stenosis. Broad-based disc bulge, resulting in effacement of the anterior thecal sac. Ligamentum flavum hypertrophy and hypertrophic facet arthropathy, suggesting mild central canal stenosis and bilateral foraminal stenosis. Posterior disc osteophyte complex and possible central disc protrusion, resulting in effacement of the anterior thecal sac. No significant foraminal stenosis. Spinal cord: It is difficult to evaluate the central canal secondary to artifact. Soft tissues: Unremarkable. IMPRESSION: 1. No acute findings are evident. 2. Multilevel degenerative change resulting in varying degrees of central canal and foraminal stenosis as above. It is difficult to evaluate the central canal secondary to artifact. Dictated and Authenticated by: Dash Love MD. Ordering:LING Mabry MD
[2023-05-16 02:13] LABS: Bacteria Rare HPF (Negative); C & S Indicated? No; Crystals Negative HPF (Negative); Epithelial Cells Negative HPF (Negative); Mucus Negative (Negative); RBC 0-2 HPF (0-2); WBC 0-2 HPF (0-5)
--- NOTE | 2023-05-16 03:20 | HPE_ITS ---
Date of service: 05/16/23 Time of Service: 03:22 Assessment and Plan Assessment and plan (1) Sepsis: Status: Acute Assessment and plan: In setting of back pain and now headache, falls, h/o spinal injections and a radiofrequency ablation in 02/12, I do have a concern for an epidural abscess as well as possible meningitis. Unfortunately, the location of the lower back pain is suspicious of an abscess in the area where one would obtain an LP, which would potentially contaminate the subarachnoid space. I discussed my hesitation re getting an LP in this specific case and Dr Steven and I are in agreement. The patient would benefit from an MRI first thing this morning. He would need MRIs of the brain, c-spine, T-spine, and lumbar spine w/w/o contrast. It is currently after 3 am, and I do think the patient would get this study faster at our facility in the morning than if we attempted to transfer him for an MRI to a facility that does them at night. Decision re LP can be made after the MRI, th ough regrettably its diagnostic yield would be lower. The patient has had symptoms for over a week and has a murmur - I think the chances of blood cultures turning positive are quite high. For now, we will continue empiric coverage with vancomycin and cefepime, await blood culture results, trend CRP and procalcitonin. Consider neurology consult. (2) Headache: Status: Acute Assessment and plan: Again, concern for meningitis and an epidural abscess. As above. (3) Back pain: Status: Acute Assessment and plan: Acute on chronic back pain w/ h/o multilevel spinal stenosis of the lumbar spine w/ h/o injections and radiofrequency ablation in 02/12. As above. No evidence of Cauda Equina syndrome currently. (4) Falls: Status: Acute Assessment and plan: As above. C/s PT. (5) Prediabetes: Status: Acute Assessment and plan: Check A1C. Does predispose him to Pseudomonas, which is why antibiotics include cefepime. For now, will provide a consistent carb diet and monitor fingersticks BID. (6) CAD (coronary artery disease): Assessment and plan: Clarify and continue home therapy (7) Obstructive sleep apnea: Assessment and plan: Continue home CPAP. I have asked the patient's son to bring it in. (8) Hypertension: Assessment and plan: Clarify outpatient medications with plans to continue on this admission. (9) Hyperlipidemia: Assessment and plan: Continue statin (10) DVT prophylaxis: Status: Acute Assessment and plan: SC heparin in anticipation of a possible procedure (11) Discharge planning issues: Status: Acute Assessment and plan: Full code as per discussion with the patient witnessed by his son. I did advise the patient and son that there is a chance the patient would have to be transferred to a different hospital if our clinical suspicion is confirmed. History of Present Illness History of Present Illness Chief Complaint: Fever, headache, neck pain, back pain, pain everywhere, falls Narrative: Mr Steele is a 67 year old male with PMHx of chronic lower back pain due to multilevel DJD and spinal stenosis, especially pronounced at L2-3 aand L5-S1, s/p lumbar medial branch diagnostic blocks on 11/23 and 01/26, followed by r adiofrequency ablation on 02/09/23 at [facility], as well as h/o prediabetes, CAD, HTN, hyperlipidemia, tobacco abuse, who states he had dental work within the last couple of months, who presented to [facility] ED last night with c/o intermittent fevers x 10 days, weakness with multiple falls at home and lower and thoracic back pain. Per ED provider, the patient denied headaches and neck pain, but to me the patient reported his headache as his most serious pain. He states he normally has difficulty moving his head up and down. He denied any pain or stiffness on moving his head/neck side to side. He denies phonophobia, photophobia, and nausea. He has had poor PO intake. He was evaluated in [place] ER one week ago after a fall and difficulty getting up with about one day of symptoms with an essentially negative workup, per the ED provider, and was discharged home with the clinical impression of a viral syndrome. At the time, the patient did not have a headache and did not have an LP. However, the patient is not any better. Per son, who is at bedside, the patient has had numerous falls at home, including one today, which is what brought him to the hospital. He has had ongoing fevers (up to 104.2) for which he has been taking tylenol around the clock, every 4 hours. He reports that the pain is all over, in all his joints, but it is especially bad in the head/neck and his thoracic and lower back. He does report having urinary and fecal incontinence at home and denies saddle anesthesia. Denies numbness/tingling in his bilateral legs. In our ED, his temperature has gone up to 39.1, and he is tachycardic with HR in 110s-120s. He has a nonfocal neurologic exam and a preserved rectal tone without meningeal signs, per the ED provider, to whom he had denied a headache, per the provider. His FLUVID testing came back negative. He has a leucocytosis with WBC of 12.27, 88% neutrophils, an elevated procalcitonin of 1.1. His UA is negative. Tick panel is pending. CT imaging of head, C-spine, Chest, abdomen, and pelvis, as well as thoracic and lumbar spine do not reveal any acute abnormality. He does have chronic known multilevel degenerative changes, however, it is difficult to evaluate the central canal secondary to artifact, per Vrad read. He was started on empiric coverage for an epidural abscess with vancomycin and cefepime. Hospitalist admission for further evaluation and treatment was requested. Review of Systems Narrative: Additionally, the patient denies sick contacts, denies rhinorrhea, sore throat, CP, SOB, cough, abdominal pain, n/v. All systems reviewed & are unremarkable except as noted in HPI and below PFSH All Active Problems (Updated 05/16/23 @ 04:53 by Shannan Roberson MD) Headache (Acute) Sepsis (Acute) Discharge planning issues (Acute) DVT prophylaxis (Acute) Weakness (Acute) Falls (Acute) Fever (Acute) Back contusion (Acute) Lumbosacral spondylosis without myelopathy (Acute) Back pain (Acute) Leg pain (Acute) Arthritis of right shoulder region (Acute) Angina pectoris (Chronic) Prediabetes (Acute) Chest pain (Acute) Medical History CAD (coronary artery disease) Choroidal nevus History of wound infection Hx of colonic polyps Hydrocele, right Hyperlipidemia Hypertension Nevus of choroid of right eye Obesity Obstructive sleep apnea Rectus diastasis of lower abdomen Spinal stenosis Squamous cell carcinoma Steatosis of liver Tobacco abuse Surgical History H/O radiofrequency ablation (RFA) of nerve of lumbar spine S/P hernia repair Family History Mother Alzheimer disease Father Heart disease Hypertension Social History Smoking/Tobacco Use Status: Former Tobacco Use Smoking risk assessment performed?: Yes Alcohol Intake: current Alcohol Intake frequency: holidays/special occasions only Drug use: Never Substance use type: does not use Household members: spouse Housing: house Number of Children: 1 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 Meds Allergies and Home Medications Allergies Allergy/AdvReac Type Severity Reaction Status Date / Time atorvastatin [From Lipitor] Allergy Mild Verified 02/09/23 07:45 naproxen Allergy Unknown Unverified 02/09/23 07:45 Home Medications Medication Instructions Recorded Confirmed Type aspirin 81 mg tablet,delayed 81 mg PO DAILY 03/13/17 05/16/23 History release (Ecotrin Low Strength) cholecalciferol (vitamin D3) 25 1 tab PO DAILY 03/13/17 05/16/23 History mcg (1,000 unit) tablet lisinopril 20 mg tablet 20 mg PO DAILY 03/13/17 05/16/23 History nitroglycerin 0.4 mg sublingual 1 tab sublingual DIRECTED PRN 03/13/17 05/16/23 History tablet simvastatin 20 mg tablet 20 mg PO QHS 03/07/22 05/16/23 History tamsulosin 0.4 mg capsule 0.4 mg PO DAILY 03/07/22 05/16/23 History acetaminophen 650 mg 650 mg PO Q8H 06/15/22 05/16/23 History tablet,extended release (Tylenol Arthritis Pain) diclofenac sodium 1 % topical gel 2 g topical QID PRN 08/19/22 05/16/23 History (Voltaren Arthritis Pain) docusate sodium 100 mg capsule 100 mg PO BID PRN 08/19/22 05/16/23 History (Colace) gabapentin 100 mg capsule 200 mg PO BID 05/16/23 05/16/23 History multivitamin 1 tab PO DAILY 05/16/23 05/16/23 History Exam Narrative Exam Narrative: General: Pleasant ill-appearing diaphoretic middle-aged male, A&Ox3, [place], laying uncomfortably in bed Neurological: A&Ox3, CN II-XII intact, difficulty with neck flexion (which he states is baseline), preserved sensation in BLEs, preserved strength in BUE/BLEs. 2+ patellar reflexes, I am unable to obtain the achiles relfex Psychiatric: Appropriate speech pattern/content Skin: mild non-infected appearing excoriations of the dorsal surface of the R foot HEENT: Atraumatic, normocephalic, EOMI, dry MM, clear oropharynx, no submandibular or cervical lymphadenopathy, ?goiter, no JVD Cardiovascular: RRR, +subtle GEOVANI, tachycardic Lungs: Diminished breath sounds B Gastrointestinal: soft, nontender, nondistended Genitourinary: deferred Extremities: no edema BLEs, 1+ pedal pulses B, no c/c. Results Imaging Imaging Studies: CT head: No acute intracranial abnormality. Changes of an acute infarct may not be visible on CT for up to [address] c-spine: No acute bony abnormality. CT thoracic spine: Unremarkable CT Spine. CT lumbar spine w/o contrast: 1. ? No acute findings are evident. 2. ? Multilevel degenerative change resulting in varying degrees of central canal and foraminal stenosis as above. It is difficult to evaluate the central canal secondary to artifact. CT chest w/ contrast; No acute findings. CT abdomen/pelvis w/ contrast: 1. ? No acute findings. 2. ? If there is concern for spinal abscess, consider MRI imaging with contrast. Labs 05/15/23 22:20 05/15/23 22:20 Labs: Laboratory Results - last 24 hr 05/15/23 05/15/23 05/15/23 22:20 22:20 22:20 WBC RBC Hgb Hct MCV MCH MCHC RDW Plt Count MPV Immature Gran % Neutrophils % Lymphocytes % Monocytes % Eosinophils % Basophils % Nucleated RBC % Absolute Neutrophils Absolute Lymphocytes Absolute Monocytes Absolute Eosinophils Absolute Basophils PT INR APTT Sodium 132 L Potassium 3.9 Chloride 97 L Carbon Dioxide 22.0 Anion Gap 13.0 H BUN 18 Creatinine 1.2 Est GFR (CKD-EPI 2020) 65.46 Glucose 159 H Calcium 8.3 L Magnesium 1.8 Total Bilirubin 0.8 AST 62 H ALT 144 H Alkaline Phosphatase 112 Troponin I < 50 Total Protein 7.7 Albumin 2.7 L Procalcitonin 1.1 TSH 1.33 Urine Color Urine Clarity Urine pH Ur Specific [place] Urine Protein Urine Ketones Urine Blood Urine Nitrite Urine Bilirubin Urine Urobilinogen Ur Leukocyte Esterase Urine RBC Urine WBC Ur Epithelial Cells Urine Crystals Urine Bacteria Urine Mucus Ur Culture Indicated? Urine Glucose COVID-19 Source Nasopharynx SARS-CoV-2 (PCR) Negative Influenza Type A (PCR) Negative Influenza Type B (PCR) Negative RSV (PCR) Negative 05/15/23 05/15/23 05/16/23 22:20 22:20 00:58 WBC 12.27 H RBC 4.79 Hgb 14.0 Hct 40.9 MCV 85 MCH 29.2 MCHC 34.2 RDW 14.5 H Plt Count 247 MPV 10.8 Immature Gran % 0.4 Neutrophils % 88.1 Lymphocytes % 7.3 Monocytes % 3.5 Eosinophils % 0.1 Basophils % 0.6 Nucleated RBC % 0.0 Absolute Neutrophils 10.81 H Absolute Lymphocytes 0.90 L Absolute Monocytes 0.43 Absolute Eosinophils 0.01 Absolute Basophils 0.07 PT 10.7 INR 1.1 APTT 29.0 Sodium Potassium Chloride Carbon Dioxide Anion Gap BUN Creatinine Est GFR (CKD-EPI 2020) Glucose Calcium Magnesium Total Bilirubin AST ALT Alkaline Phosphatase Troponin I < 50 Total Protein Albumin Procalcitonin TSH Urine Color Urine Clarity Urine pH Ur Specific [place] Urine Protein Urine Ketones Urine Blood Urine Nitrite Urine Bilirubin Urine Urobilinogen Ur Leukocyte Esterase Urine RBC Urine WBC Ur Epithelial Cells Urine Crystals Urine Bacteria Urine Mucus Ur Culture Indicated? Urine Glucose COVID-19 Source SARS-CoV-2 (PCR) Influenza Type A (PCR) Influenza Type B (PCR) RSV (PCR) 05/16/23 01:39 WBC RBC Hgb Hct MCV MCH MCHC RDW Plt Count MPV Immature Gran % Neutrophils % Lymphocytes % Monocytes % Eosinophils % Basophils % Nucleated RBC % Absolute Neutrophils Absolute Lymphocytes Absolute Monocytes Absolute Eosinophils Absolute Basophils PT INR APTT Sodium Potassium Chloride Carbon Dioxide Anion Gap BUN Creatinine Est GFR (CKD-EPI 2020) Glucose Calcium Magnesium Total Bilirubin AST ALT Alkaline Phosphatase Troponin I Total Protein Albumin Procalcitonin TSH Urine Color Yellow Urine Clarity Clear Urine pH 6.0 Ur Specific [place] 1.010 Urine Protein Trace H Urine Ketones Negative Urine Blood Trace-intact H Urine Nitrite Negative Urine Bilirubin Negative Urine Urobilinogen 1.0 H Ur Leukocyte Esterase Negative Urine RBC 0-2 Urine WBC 0-2 Ur Epithelial Cells Negative Urine Crystals Negative Urine Bacteria Rare Urine Mucus Negative Ur Culture Indicated? No Urine Glucose Negative COVID-19 Source SARS-CoV-2 (PCR) Influenza Type A (PCR) Influenza Type B (PCR) RSV (PCR) Last Vital Signs Temp 37.9 C H 05/16/23 02:54 Pulse 115 H 05/16/23 01:01 Resp 35 H 05/16/23 01:01 BP 130/59 L 05/16/23 01:01 Pulse Ox 98 05/16/23 00:40 Time Spent Time spent with Patient: 55-74 minutes Time was spent: preparing to see the patient(eg.review tests), obtaining and/or reviewing separately otained hiistory, ordering medications,tests, procedures, referring, communicating with other health career and technology education teacher, indepentently interpreting results, counseling the patient and care coordination
[2023-05-16] MEDS: VANCOMYCIN 2,000 MG in Normal Saline 500 ML 333.3333 MG IVPB (03:22)
[2023-05-16] MEDS: CEFEPIME 2 GM in Normal Saline 100 ML IVPB ×3 (03:28→20:40)
--- NOTE | 2023-05-16 04:39 | TELEP.MEDR_ITS ---
Date of service: 05/16/23 Time of Service: 04:39 Telepharmacy Home Med Rec Allergies Allergies: atorvastatin [From Lipitor] Allergy (Mild, Verified 02/09/23 07:45) naproxen Allergy (Unknown, Unverified 02/09/23 07:45) Interview Person Interviewed: * Abram Quality Quality of Interview/Accuracy of Medication List: Good Sources Sources used to compile medication list: [employer] Medication List, Retail Pharmacy and [employer] Changes made to Home Medication List: ADDITIONS: * None DELETIONS: * none CHANGES: * Gabapentin 200mg PO BID (changed from 300mg PO QAM and 600mg QPM) Additional Notes Additional Notes: * none Recommended Changes Recommended Changes(reason for recommendation): * none Attestation: The home medication list is now updated to the best of my knowledge and is ready to be reconciled by the provider. Please contact the [facility] Medication Reconciliation Pharmacist at for any questions.
--- NOTE | 2023-05-16 04:39 | TELEP.MEDREC ---
Date of service: 05/16/23 Time of Service: 04:39 Telepharmacy Home Med Rec Allergies Allergies: atorvastatin [From Lipitor] Allergy (Mild, Verified 02/09/23 07:45) naproxen Allergy (Unknown, Unverified 02/09/23 07:45) Interview Person Interviewed: Abram Quality Quality of Interview/Accuracy of Medication List: Good Sources Sources used to compile medication list: [employer] Medication List, Retail Pharmacy and [employer] Changes made to Home Medication List: ADDITIONS: None DELETIONS: none CHANGES: Gabapentin 200mg PO BID (changed from 300mg PO QAM and 600mg QPM) Additional Notes Additional Notes: none Recommended Changes Recommended Changes(reason for recommendation): none Attestation: The home medication list is now updated to the best of my knowledge and is ready to be reconciled by the provider. Please contact the TelePharmacy Medication Reconciliation Pharmacist at for any questions.
[2023-05-16 05:09] LABS: Lab Add On Test DONE
[2023-05-16 05:28] LABS: Acetaminophen 2 ug/mL (10-30)
[2023-05-16] MEDS: Lactated Ringers 1,000 ML 150 ML IV ×2 (05:30→12:09)
[2023-05-16] MEDS: Ketorolac 15 MG/ML VIAL IVP ×3 (05:30→18:05)
[2023-05-16 06:22] LABS: Abs Immature Grans 0.07 10^3/uL (0.0-0.06); Absolute Basophil Count 0.06 10^3/uL (0.0-0.2); Absolute Eosinophil Count 0.01 10^3/uL (0.0-0.7); Absolute Lymphocyte Count 0.98 10^3/uL (1.2-3.4); Absolute Monocyte Count 0.39 10^3/uL (0.1-0.8); Basophils % 0.5; Eosinophils % 0.1; HCT 37.3 % (40.0-50.0); HGB 12.9 g/dL (13.5-17.5); Immature Grans % 0.6; Lymphocytes % 8.3; MCH 29.6 pg (27.0-33.0); MCHC 34.6 % (32.0-36.0); MCV 86 fL (80-95); MPV 10.9 fL (8.0-11.0); Monocytes % 3.3; Neutrophils % 87.2; Platelet Count 231 10^3/uL (130-400); RBC 4.36 10^6/uL (4.36-5.78); RDW 14.6 % (11.8-14.1); RDW-SD 46.2 fL; WBC 11.86 10^3/uL (4.4-10.8)
[2023-05-16 06:25] LABS: Absolute Neutrophil Count 10.34 10^3/uL (1.2-6.7)
[2023-05-16 06:36] LABS: Anion Gap 9.1 mmol/L (3-11); BUN 14 mg/dL (7-18); C-Reactive Protein 14.09 mg/dL (0.0-0.3); CO2 22.9 mmol/L (21.0-32.0); Calcium 7.9 mg/dL (8.5-10.1); Chloride 102 mmol/L (98-107); Estimated GFR 81.47 (mL/min/1.73m2); Glucose 123 mg/dL (74-106); Magnesium 1.8 mg/dL (1.8-2.4); Potassium 4.1 mmol/L (3.5-5.1); Sodium 134 mmol/L (136-145)
[2023-05-16 06:38] LABS: Hemoglobin A1C 5.8 % (<5.7)
[2023-05-16] MEDS: Acetaminophen 325 MG TAB PO ×2 (07:22→13:37)
--- NOTE | 2023-05-16 07:43 | RESPIRATORY ---
Pt's own ResMed [id number] Auto Set. Min: 8 cmH2O Max: 18 cmH2O No O2 bleed in. DME: [facility] Full face mask, size medium.
--- NOTE | 2023-05-16 07:58 | INITIAL_ITS ---
Date of service: 05/16/23 Time of Service: 08:01 Care Management Initial Assmt Initial Assessment REASON FOR HOSPITALIZATION:: Sepsis, suspected epidural abscess PREVIOUS FUNCTIONAL STATUS/SOCIAL/FAMILY SUPPORTS:: Resides with , Susana in [place]. Independent at baseline, increasingly sick and weakened over the last ten days. CURRENT FUNCTIONAL STATUS:: Lying in bed, uncomfortable- at bedside. CM did not disturb at this time. ADVANCE DIRECTIVES:: None on file. Has patient been provided with info about the portal/API?: Yes Did the patient sign up for the portal?: Yes CODE STATUS:: Full Code INSURANCE COVERAGE / FINANCIAL ISSUES:: AARP/[facility] MCR Replacement CURRENT HOME/COMMUNITY SERVICES/EQUIPMENT:: Grab bars, FWW, glucometer, home CPAP; son Nolan to deliver to [facility]. PRIMARY CARE PHYSICIAN:: Nikki Tripp POTENTIAL DISCHARGE NEEDS:: Follow up appointments, work-up to determine source of infection, PT evaluation. PATIENT/FAMILY EDUCATION NEEDS:: Review discharge instructions, discuss Ask Me Three. ANTICIPATED BARRIERS TO DISCHARGE:: None identifed. TRANSPORTATION:: Via private vehicle. PLAN:: Per , IV vancomycin and cefepime will continue, awaiting blood culture results, trending CRP and procalcitonin also awaiting MRIs of the brain, c- spine, T-spine, and lumbar spine w/w/o contrast. CM continues to follow. PFSH All Active Problems (Updated 05/16/23 @ 04:53 by Shannan Roberson MD) Headache (Acute) Sepsis (Acute) Discharge planning issues (Acute) DVT prophylaxis (Acute) Weakness (Acute) Falls (Acute) Fever (Acute) Back contusion (Acute) Lumbosacral spondylosis without myelopathy (Acute) Back pain (Acute) Leg pain (Acute) Arthritis of right shoulder region (Acute) Angina pectoris (Chronic) Prediabetes (Acute) Chest pain (Acute) Medical History CAD (coronary artery disease) Choroidal nevus History of wound infection Hx of colonic polyps Hydrocele, right Hyperlipidemia Hypertension Nevus of choroid of right eye Obesity Obstructive sleep apnea Rectus diastasis of lower abdomen Spinal stenosis Squamous cell carcinoma Steatosis of liver Tobacco abuse Surgical History H/O radiofrequency ablation (RFA) of nerve of lumbar spine S/P hernia repair Family History Mother Alzheimer disease Father Heart disease Hypertension Social History Smoking/Tobacco Use Status: Former Tobacco Use Smoking risk assessment performed?: Yes Alcohol Intake: current Alcohol Intake frequency: holidays/special occasions only Drug use: Never Substance use type: does not use Household members: spouse Housing: other Number of Children: 1 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
[2023-05-16] MEDS: Normal Saline Flush 10 ML SYR IVP ×3 (11:17→18:06)
[2023-05-16] MEDS: VANCOMYCIN/WATER (PEG) 1 GM/200 ML BAG IV (13:37)
--- NOTE | 2023-05-16 15:12 | PT.INIE ---
PT Notes Visit Reasons: Sepsis, Suspected Epidural Abscess Physical Therapy Inpatient Initial Evaluation Date: 05/16/23 Referring Doctor: Shannan Roberson MD PT Orders: PT CONSULT: Eval & treat Precautions: Fall. Standard. WBAT. Patient Profile/Admitting Diagnosis: Manan is 67 yo male that presented to the ER on 05/15/23 for ongoing intermittent fever since 05/05/23. Was told a virus, but not improving on own. Declining function and new onset of falls secondary to this with weakness. PMHX: See EMR Social History/Home Situation: Lives with spouse, 5-6 KEVIN, independent at baseline. Declining function due to fever and weakness. They report a number of falls since onset. Equipment Owned/DME: Rollator walker Subjective: Cleared by nursing to see patient and patient is agreeable to PT. Patient is lying in bed at time of consult and IV. Patient incontinent and needs bedding changed. Reports pain, but no rating given. Objective: General Observation: Patient resting in bed with ice packs. Bedding soiled. Agreeable to try getting out of bed for linen change. Mental Status: A&O x3 Pain: Noted in back, rating not given. ROM: Right Upper Extremity: Shoulder Flexion WFL. Shoulder abduction WFL. Elbow flexion WFL. Wrist flexion WFL. Opening and closing of hand WFL. Left Upper Extremity: Shoulder Flexion WFL. Shoulder abduction WFL. Elbow flexion WFL. Wrist flexion WFL. Opening and closing of hand WFL. Right Lower Extremity: Hip flexion WFL. Hip abduction WFL. Knee flexion WFL. Ankle dorsiflexion WFL. Ankle plantarflexion WFL. Left Lower Extremity: Hip flexion WFL. Hip abduction WFL. Knee flexion WFL. Ankle dorsiflexion WFL. Ankle plantarflexion WFL. Strength: Right Upper Extremity: Shoulder flexors 4/5. Shoulder abductors 4/5. Elbow flexors 5/5. Elbow extensors 5/5. Winter Intern strong. Left Upper Extremity: Shoulder flexors 4/5. Shoulder abductors 4/5. Elbow flexors 4+/5. Elbow extensors 4+/5. Winter Intern strong. Right Lower Extremity: Hip flexors 4/5. Knee flexors 5/5. Knee extensors 5/5. Ankle dorsiflexors 4/5. Left Lower Extremity: Hip flexors 4/5. Knee flexors 5-/5. Knee extensors 5/5. Ankle dorsiflexors 5/5. Sensation: Intact as to pain and pressure on bilateral lower extremities. Bed Mobility/Transfers: Rolling: Mod A Supine to sit: 2 person mod to max A Sit to supine: 2 person mod to max A (able to help scoot hips over in bed fso less crooked) Sit to stand: Max A Stand to sit: Min A Gait: Did not assess - Was able to stay standing at EOB with FWW for bed linen change about 4 minutes Stairs: Did not assess Balance: Static Sitting: Fair Dynamic Sitting: Poor Static Standing: Poor Dynamic Standing: Poor Special Tests: Mobility Limitations Standardized Measure [facility] AM-PAC 6 clicks Basic Mobility Inpatient Short Form: Raw Score: 9 CMS Score: 81% Informed Consent/Education: Patient instructed in purpose of PT consult and plan of care. Assessment: Manan presents to PT with weakness and malaise contributing to increased falls since onset 05/05/23. reports he was independent at baseline and did not use asssistive device until this onset. He was able to help get sitting EOB from supine, but still needs two person Max A for bed mobility overall. Once sitting EOB he has mild posterior lean. Sit to stand requires Max A and help to steady in standing. He is able to maintain standing for bed and brief change, but again has posterior sway. Controled stand to sit. Patient still had fever at time of evaluation and nursing repositioned ice packs to help cool. It does seem patient has more mobility today compared to when he was being brought to ER per report. He will benefit from skilled acute care PT ins [facility] in order to facilitate ability to safely return home when medically clear. Patient presents with clinical signs and symptoms consistent with current/admitting diagnoses that have resulted to mobility limitations, gait instability, generalized weakness, and impairment of motor control as demonstrated by the following impairment level findings: 1. Decreased strength to hip and shoulder major muscle groups 2. Impaired sitting/standing balance 3. Impaired activity tolerance Impairments are contributing to the following functional limitations: 1. Dependent bed mobility skills 2. Increased dependence with transfers 3. Inability to safely ambulate without assistive device and physical assistance 4. Increase completion time for mobility ADL performance 5. Increased fall risk 6. Inability to negotiate steps alone safely Patient is assessed as a High complexity based on the following: History: 67 year old male with impairment level findings, functional limitations, and past medical history as indicated above Examination: Demonstrable impairment in strength, balance, and mobility level with underlying impairments and functional limitations as documented above Presentation: Evolving Decision Making: High complexity Goals: Goals x1 week 1. Supine-Sit: independent 2. Sit-Supine: independent 3. Sit-Stand: independent 4. Stand-Sit: independent 5. Bed-Chair: independent 6. Chair-Bed: independent 7. Independent gait on level surface with use of least restrictive device for at least 100 feet without report of pain nor dyspnea 8. Good static and dynamic standing balance/tolerance 9. Independent with home exercise program 10. Independent stair negotiation while holding onto bilateral rails for at least 6 steps without report of pain nor dyspnea Plan of Care/Treatment Plan: 1-2x/day, 7 days/week x1 week. Plan of care has been reviewed with the HUMAN RELATIONS MANAGER providing the service under Physical Therapy direction. Initiate Physical Therapy intervention for strengthening, bed mobility, transfers, gait, stairs, balance training, and use of assistive device. Discharge Plan DISCHARGE RECOMMENDATIONS: SNF versus home with home health depending on progress as becomes medically stable TREATMENT CODE/TIME: 14:44-15:08 (24 minutes), [id number] Thank you for the opportunity to participate in the care of this patient. Jody Jones, PT, DPT, OCS [facility] [place], [place]
--- NOTE | 2023-05-16 15:20 | CHAPLAIN ---
Manan was in bed when visited. His was with him. He is feeling very warm, and has a fan blowing on him, but is still uncomfortable. I explained my role and offered support.
--- NOTE | 2023-05-16 16:45 | DI.MRI_ITS ---
Exam(s) MR LUMBAR SPINE WO/W EXAM: MR LUMBAR SPINE WO/W CLINICAL HISTORY: fever, back pain, falls, ?epidural abscess. TECHNIQUE: Multiplanar multisequence MRI of the Lumbar Spine was performed. CONTRAST MATERIAL: IV Contrast: mL of Dotarem contrast administered. COMPARISON: MR MR LUMBAR SPINE WO from 02/18/2022 FINDINGS: The examination is limited due to patient motion artifact. Bones: The last intervertebral disc space is designated the L5/S1 level for the numbering purpose of this examination. The vertebral body heights are well maintained. There is an S-type scoliosis of th e thoracolumbar spine. There are degenerative endplate signal changes from T12-L1 through L5-S1. The re is a round T1 and T2 hyperintense nodule in the L3 vertebral body which may represent a hemangioma or fatty rest. There is overall T1 and T2 hypointense signal in the visualized spine and pelvis. Cord: The conus tip ends at the L1 level. It is of normal size and signal intensity. T12-L1: No disc herniations or bulges are present. No central spinal canal or neural foraminal stenos is. L1-2: There is a diffuse disc bulge eccentric to the right. No significant central spinal canal sten osis is seen. No significant neural foraminal stenosis is present. L2-3: There is a diffuse disc bulge. There is mild narrowing of the central spinal canal. No signif icant neural foraminal stenosis is seen. L3-4: There is a small central disc herniation. No significant central spinal canal stenosis is seen . There are degenerative changes of the facets. There is mild bilateral neural foraminal stenosis. L4-5: There is a diffuse disc bulge. There are degenerative changes of the facets and hypertrophy of the ligamentum flavum. This does cause mild narrowing of the central spinal canal. There is mild b ilateral neural foraminal stenosis. L5-S1: There is a mild diffuse disc bulge eccentric to the left. There does appear to be left latera l recess stenosis and compression of the left S1 nerve root. No significant central spinal canal antonino nosis or neural foraminal stenosis is present. Soft tissues: The visualized SI joints and sacrum are well maintained. The paraspinal soft tissues ar e unremarkable. There is no evidence of suspicious enhancement. There is no evidence of a epidural abscess. IMPRESSION: 1. No evidence of a paraspinal or epidural abscess. 2. Multilevel degenerative changes throughout the lumbar spine resulting in central spinal canal or n eural foraminal stenosis as described above. 3. Hypointense T1 and T2 signal in the bone which may represent diffuse marrow proliferative disorder , metastatic disease or red marrow reconversion. Please correlate with patient's clinical history. DATA REPOSITORY:
[2023-05-16 17:38] LABS: Lactate 1.9 mmol/L (0.6-1.4)
[2023-05-16 17:41] LABS: Abs Immature Grans 0.23 10^3/uL (0.0-0.06); HGB 12.7 g/dL (13.5-17.5); MCH 28.9 pg (27.0-33.0); MCHC 33.4 % (32.0-36.0); MCV 87 fL (80-95); MPV 10.7 fL (8.0-11.0); Platelet Count 216 10^3/uL (130-400); RBC 4.39 10^6/uL (4.36-5.78); RDW 14.6 % (11.8-14.1); RDW-SD 46.5 fL; WBC 11.13 10^3/uL (4.4-10.8)
--- NOTE | 2023-05-16 17:49 | W.EVENT ---
Date of service: 05/16/23 Time of Service: 17:50 Event Note: Pt had been febrile on and off throughout the day. Fever would break with either acetaminophen or Toradol but return. Not hypotensive. He went for MRI late in the afternoon. Shortly after scanning began he became confused/delirious and the scan process was terminated. He returned to the med-surg unit. He was not febrile or hypotensive. He was confused. Transferred to the ICU. CBC, Procal, CMP, lactate ordered. LR 1L bolus ordered. Cont. cefepime and vancomycin. Cont stabilization efforts with plans to finish MRI tomorrow. PRN ativan. Midline ordered. PE: Lying supine. Facial rubor noted. Confused but did know his son and [id number]. Lungs: clear. Nonlabored breathing. CV: Tachy. regular. Abd: soft, NT Exts: No edema. Time Spent with Patient Time spent in critical care(minutes): 45 mins Time Spent Included: Chart review, Documenting critically ill care, Time at immediate bedside, Discussing critically ill care with other medical staff and Discussing Hx and/or treatment with family
[2023-05-16 17:52] LABS: Absolute Lymphocyte Count 0.89 10^3/uL (1.2-3.4); Absolute Monocyte Count 0.33 10^3/uL (0.1-0.8); Absolute Neutrophil Count 9.91 10^3/uL (1.2-6.7); Atypical Lymphocytes % 1
[2023-05-16 17:53] LABS: Diff Comment Manual Differential; RBC Morphology Normal
[2023-05-16] MEDS: LORazepam 2 MG/ML VIAL 0.5 MG IVP (18:04)
[2023-05-16] MEDS: Lactated Ringers 1,000 ML 125 ML IV ×2 (18:30→20:41)
--- NOTE | 2023-05-16 19:30 | DI.RAD_ITS ---
Exam(s) XR PORTABLE CHEST AP EXAM: XR PORTABLE CHEST AP CLINICAL HISTORY: fever TECHNIQUE: 2D digital imaging was performed of the chest. One image was obtained. An AP view was ob tained. COMPARISON: CR CHEST 2 VIEWS PA,LAT from 03/30/2017 FINDINGS: MEDIASTINUM: Normal. HEART: Normal. PULMONARY VASCULATURE: Normal. LUNGS: Clear. PLEURAL SPACE: No pleural effusion or pneumothorax. BONE:Within normal limits for the patient's age. OTHER FINDINGS:Normal. IMPRESSION: No acute pulmonary findings. DATA REPOSITORY: RADIATION DOSE DELIVERED:
[2023-05-16 20:22] LABS: NT-proBNP 472 pg/mL (<300)
--- NOTE | 2023-05-16 20:41 | DI.VRAD_ITS ---
PROCEDURE INFORMATION: Exam: XR Chest Exam date and time: 05/16/2023 8:02 PM Age: 67 years old Clinical indication: Fever TECHNIQUE: Imaging protocol: Radiologic exam of the chest. Views: 1 view. COMPARISON: CT CHEST/ABD/PEL W 05/15/2023 11:39 PM FINDINGS: Lungs: Unremarkable. No consolidation. Pleural spaces: Unremarkable. No pleural effusion. No pneumothorax. Heart/Mediastinum: Tortuous aorta. No cardiomegaly. Bones/joints: Unremarkable. IMPRESSION: No acute findings. Dictated and Authenticated by: Tyshawn Nolasco MD. Ordering:RAEANN Hinkle MD
[2023-05-16] MEDS: Gabapentin 100 MG CAP 200 MG PO (20:43)
[2023-05-16 21:24] LABS: C Diff PCR Negative (Negative)
[2023-05-16] MEDS: Heparin 5,000 UNITS/ML VIAL 5000 UNITS SC (22:26)
[2023-05-17] VITALS (94 sets, daily range): BP systolic 108–157; BP diastolic 61–85; PULSE 78–121; RESP 4–44; TEMP 36.7–39.8; O2SAT 91–99
[2023-05-17] MEDS: ACETAMINOPHEN 1,000 MG/100 ML BTL 400 MG IVPB ×2 (00:06→16:18)
[2023-05-17] MEDS: LORazepam 2 MG/ML VIAL 0.5 MG IVP ×2 (00:35→10:25)
[2023-05-17] MEDS: Normal Saline Flush 10 ML SYR IVP ×5 (00:55→16:40)
[2023-05-17] MEDS: Ketorolac 15 MG/ML VIAL IVP ×3 (01:12→20:10)
[2023-05-17] MEDS: VANCOMYCIN/WATER (PEG) 1 GM/200 ML BAG IV ×2 (02:10→14:26)
--- NOTE | 2023-05-17 03:24 | NUR.NOTE ---
0200-son in to check on father. Went into room to sit for a few minutes. returned to visitors lounge to sleep in recliner.
[2023-05-17] MEDS: CEFEPIME 2 GM in Normal Saline 100 ML IVPB ×3 (04:07→20:09)
[2023-05-17] MEDS: Furosemide 20 MG/2 ML VIAL IVP (06:47)
[2023-05-17] MEDS: Heparin 5,000 UNITS/ML VIAL 5000 UNITS SC ×3 (06:48→21:46)
[2023-05-17 07:05] LABS: Abs Immature Grans 0.05 10^3/uL (0.0-0.06); Absolute Basophil Count 0.07 10^3/uL (0.0-0.2); Absolute Eosinophil Count 0.02 10^3/uL (0.0-0.7); Absolute Lymphocyte Count 0.63 10^3/uL (1.2-3.4); Absolute Neutrophil Count 8.95 10^3/uL (1.2-6.7); Basophils % 0.7; Eosinophils % 0.2; HCT 36.7 % (40.0-50.0); HGB 12.4 g/dL (13.5-17.5); Immature Grans % 0.5; Lymphocytes % 6.4; MCH 29.4 pg (27.0-33.0); MCHC 33.8 % (32.0-36.0); MCV 87 fL (80-95); MPV 10.8 fL (8.0-11.0); Neutrophils % 90.2; Platelet Count 210 10^3/uL (130-400); RBC 4.22 10^6/uL (4.36-5.78); RDW 14.7 % (11.8-14.1); RDW-SD 47.4 fL; WBC 9.92 10^3/uL (4.4-10.8)
[2023-05-17] MEDS: ACETAMINOPHEN 1,000 MG/100 ML BTL 100 MG IVPB (07:36)
[2023-05-17] MEDS: Aspirin E.C. 81 MG TABEC PO (07:36)
[2023-05-17] MEDS: Gabapentin 100 MG CAP 200 MG PO ×2 (07:36→20:10)
[2023-05-17] MEDS: Lisinopril 20 MG TAB PO (07:36)
[2023-05-17 07:50] LABS: ALT 177 U/L (16-63); AST 138 U/L (15-37); Albumin 2.1 g/dL (3.4-5.0); Alkaline Phosphatase 101 U/L (46-116); Anion Gap 10.2 mmol/L (3-11); BUN 17 mg/dL (7-18); Bilirubin, Total 0.7 mg/dL (0.2-1.0); C-Reactive Protein 20.28 mg/dL (0.0-0.3); CO2 24.8 mmol/L (21.0-32.0); CREATININE 0.9 mg/dL (0.70-1.30); Calcium 8.2 mg/dL (8.5-10.1); Chloride 102 mmol/L (98-107); Estimated GFR 92.45 (mL/min/1.73m2); Glucose 83 mg/dL (74-106); Potassium 4.4 mmol/L (3.5-5.1); Sodium 137 mmol/L (136-145); Total Protein 6.9 g/dL (6.4-8.2)
--- NOTE | 2023-05-17 07:50 | DI.RAD_ITS ---
Exam(s) XR PORTABLE CHEST AP EXAM: XR PORTABLE CHEST AP CLINICAL HISTORY: Wheezing?Fluid Overload TECHNIQUE: 2D digital imaging was performed of the chest. One image was obtained. An AP view was ob tained. COMPARISON: No exams were available for comparison FINDINGS: MEDIASTINUM: Normal. HEART: Normal. PULMONARY VASCULATURE: Normal. LUNGS: Clear. PLEURAL SPACE: No pleural effusion or pneumothorax. BONE:Within normal limits for the patient's age. OTHER FINDINGS:Normal. IMPRESSION: No acute pulmonary findings. DATA REPOSITORY: RADIATION DOSE DELIVERED:
[2023-05-17] MEDS: Levalbuterol 0.63 MG/3 ML UPD VIAL UPD ×2 (07:52→16:25)
[2023-05-17 07:59] LABS: NT-proBNP 623 pg/mL (<300)
[2023-05-17] MEDS: Furosemide 40 MG/4 ML VIAL IVP (09:26)
--- NOTE | 2023-05-17 10:11 | CMPROGNOTE_ITS ---
Date of service: 05/17/23 Time of Service: 10:11 Care Management Progress Note Progress Note Text Progress Note Text: S/O: Manan continues to require ICU level care for sepsis and further medical workup is being done for suspected epidural abscess. He is lying in bed, surrounded by his family who have been supportive and are visiting frequently. He is being treated with IV cefepime and vanco. Chest x-ray and MRI of lumbar spine done today, cultures are pending. Discharge needs are unknown at this time. CM will follow. A: 67 year old male admitted to [facility] on 05/15/23 for Sepsis, suspected epidural abscess P: Per MD, IV vancomycin and cefepime will continue, awaiting blood culture results, trending CRP and procalcitonin also awaiting MRIs of the brain, c- spine, T-spine, and lumbar spine w/w/o contrast. CM continues to follow.
[2023-05-17 10:16] LABS: Lyme Ab w Rflx to Lyme Confirm Negative (Negative)
[2023-05-17] MEDS: Ketorolac 30 MG/ML VIAL IVP (10:25)
[2023-05-17] MEDS: Acetaminophen 325 MG TAB PO (10:25)
[2023-05-17] MEDS: Gadoterate meglumine 20 ML VIAL IVP (11:54)
--- NOTE | 2023-05-17 11:55 | PHACLINREV_ITS ---
Pharmacy Admission Review Admission Clinical Review Admission Pharmacy Review: (Updated 05/16/23 @ 04:53 by Shannan Roberson MD) Headache (Acute) Sepsis (Acute) Discharge planning issues (Acute) DVT prophylaxis (Acute) Weakness (Acute) Falls (Acute) Fever (Acute) Back contusion (Acute) Back pain (Acute) Prediabetes (Acute) atorvastatin [From Lipitor] Allergy (Mild, Verified 02/09/23 07:45) naproxen Allergy (Unknown, Unverified 02/09/23 07:45) Resuscitation Status Full Code Height 5 ft 3 in Weight 94 kg Comments Comments/Follow Ups: cefepime and vanco (antipseudomonal + anti-MRSA) have been initiated for sepsis - suspected epidural abscess vs. meningitis, patient will have an MRI done today Pharmacy Admission Review Renal Dosing Renal Dosing: BUN 17 mg/dL (7-18) 05/17/23 06:30 Creatinine 0.9 mg/dL (0.70-1.30) 05/17/23 06:30 Medications needing adjustments: Reviewed (eCrCl 70 ml/min, all orders ok) Anticoagulation Anticoagulation: Hgb 12.4 g/dL (13.5-17.5) L 05/17/23 06:34 Hct 36.7 % (40.0-50.0) L 05/17/23 06:34 Plt Count 210 10^3/uL (130-400) 05/17/23 06:34 INR 1.1 (0.9-1.1) 05/15/23 22:20 Creatinine 0.9 mg/dL (0.70-1.30) 05/17/23 06:30 DVT Prophylaxis: Reviewed Medications: Heparin Opiate Usage Evaluate Pain Scale/Pains Meds: N/A Relevant Labs Relevant Labs: Sodium 137 mmol/L (136-145) 05/17/23 06:30 Potassium 4.4 mmol/L (3.5-5.1) 05/17/23 06:30 Chloride 102 mmol/L (98-107) 05/17/23 06:30 Magnesium 2.0 mg/dL (1.8-2.4) 05/17/23 06:30 C-Reactive Protein 20.28 mg/dL (0.0-0.3) H 05/17/23 06:30 Electrolytes, C-Reactive P, ESR: Reviewed DM Control DM Control: Reviewed Cardiac Review Cardiac Review: Troponin I < 50 ng/L (<or=60) 05/16/23 00:58 NT-Pro-B Natriuret Pep 623 pg/mL (<300) H 05/17/23 07:06 BP, HR, EF%: Reviewed QTc Review QTc: Reviewed (QTc 435 on admission) IV to PO Switch IV Medications: Reviewed Home Meds Home Med List reviewed: Reviewed Relevent Home Meds Not ordered & why?: all ordered; patient's most recent gabapentin rx is for 600mg BID but patient or family reported to [facility] that he only takes 200mg BID Current Meds Current Medication Order Review: Reviewed Pharmacy Antibiotic Review Relevant Labs: Relevant Labs 05/17/23 06:30 C-Reactive Protein 20.28 H Comments Comments/Follow Ups: cefepime and vanco (antipseudomonal + anti-MRSA) have been initiated for sepsis - suspected epidural abscess vs. meningitis, patient will have an MRI done today
[2023-05-17 13:28] LABS: Vancomycin, Trough 7.4 ug/mL (10.0-20.0)
--- NOTE | 2023-05-17 16:30 | INDS_ITS ---
Date of service: 05/17/23 Time of Service: 16:30 PT Notes Visit Reasons: Sepsis, Suspected Epidural Abscess Physical Therapy Inpatient Discharge Summary Date: 05/17/23 Dates of Service: 05/16/2023 only This is a clinical summary of care provided for the duration of dates listed above. No charge was made in the completion of this documentation. Referring Doctor: Shannan Roberson MD PT Orders: PT CONSULT: Eval & treat Precautions: Fall. Standard. WBAT. Patient Profile/Admitting Diagnosis:Noe Hinkle is 67 yo male that presented to the ER on 05/15/23 for ongoing intermittent fever since 05/05/23. Was told a virus, but not improving on own. Declining function and new onset of falls secondary to this with weakness. PMHX: See EMR Social History/Home Situation: Lives with spouse, 5-6 KEVIN, independent at baseline. Declining function due to fever and weakness. They report a number of falls since onset. Equipment Owned/DME: Rollator walker Subjective:? NT. See most recent MANUFACTURING TECHNOLOGY PROFESSOR notes. Objective:? General Observation: NT. See most recent MANUFACTURING TECHNOLOGY PROFESSOR notes. Mental Status: NT. See most recent MANUFACTURING TECHNOLOGY PROFESSOR notes. Pain: NT. See most recent MANUFACTURING TECHNOLOGY PROFESSOR notes. ROM: Right Upper Extremity: Shoulder Flexion WFL. Shoulder abduction WFL. Elbow flexion WFL. Wrist flexion WFL. Opening and closing of hand WFL. Left Upper Extremity: Shoulder Flexion WFL. Shoulder abduction WFL. Elbow flexion WFL. Wrist flexion WFL. Opening and closing of hand WFL. Right Lower Extremity: Hip flexion WFL. Hip abduction WFL. Knee flexion WFL. Ankle dorsiflexion WFL. Ankle plantarflexion WFL. Left Lower Extremity: Hip flexion WFL. Hip abduction WFL. Knee flexion WFL. Ankle dorsiflexion WFL. Ankle plantarflexion WFL. Strength: Right Upper Extremity: Shoulder flexors 4/5. Shoulder abductors 4/5. Elbow flexors 5/5. Elbow extensors 5/5. Property Controller strong. Left Upper Extremity: Shoulder flexors 4/5. Shoulder abductors 4/5. Elbow flexors 4+/5. Elbow extensors 4+/5. Property Controller strong. Right Lower Extremity: Hip flexors 4/5. Knee flexors 5/5. Knee extensors 5/5. Ankle dorsiflexors 4/5. Left Lower Extremity: Hip flexors 4/5. Knee flexors 5-/5. Knee extensors 5/5. Ankle dorsiflexors 5/5. Sensation:? Intact as to pain and pressure on bilateral lower extremities. Bed Mobility/Transfers: Rolling: Mod A Supine to sit: 2 person mod to max A Sit to supine: 2 person mod to max A (able to help scoot hips over in bed fso less crooked) Sit to stand: Max A Stand to sit: Min A Gait:? Not assessed on eval Stairs:? Not assessed on eval Balance:? Static Sitting: Fair Dynamic Sitting: Poor Static Standing: Poor Dynamic Standing: Poor Assessment: Needed ICU level of care due to symptom exacerbation. Will re-evalaute whenever a new referral is sent. Manan presents to PT with weakness and malaise contributing to increased falls since onset 05/05/23. reports he was independent at baseline and did not use asssistive device until this onset. He was able to help get sitting EOB from supine, but still needs two person Max A for bed mobility overall. Once sitting EOB he has mild posterior lean. Sit to stand requires Max A and help to steady in standing. He is able to maintain standing for bed and brief change, but again has posterior sway. Controled stand to sit. Patient still had fever at time of evaluation and nursing repositioned ice packs to help cool. It does seem patient has more mobility today compared to when he was being brought to ER per report. He will benefit from skilled acute care PT ins [facility] in order to facilitate ability to safely return home when medically clear. Patient presents with clinical signs and symptoms consistent with current/admitting diagnoses that have resulted to mobility limitations, gait instability, generalized weakness, and impairment of motor control as demonstrated by the following impairment level findings: 1. Decreased strength to hip and shoulder major muscle groups 2. Impaired sitting/standing balance 3. Impaired activity tolerance Impairments are contributing to the following functional limitations: 1. Dependent bed mobility skills 2. Increased dependence with transfers 3. Inability to safely ambulate without assistive device and physical assistance 4. Increase completion time for mobility ADL performance 5. Increased fall risk 6. Inability to negotiate steps alone safely Goals: Goals x1 week 1. Supine-Sit: independent NOT MET 2. Sit-Supine: independent NOT MET 3. Sit-Stand: independent NOT MET 4. Stand-Sit: independent NOT MET 5. Bed-Chair: independent NOT MET 6. Chair-Bed: independent NOT MET 7. Independent gait on level surface with use of least restrictive device for at least 100 feet without report of pain nor dyspnea NOT MET 8. Good static and dynamic standing balance/tolerance NOT MET 9. Independent with home exercise program NOT MET 10. Independent stair negotiation while holding onto bilateral rails for at least 6 steps without report of pain nor dyspnea NOT MET DISCHARGE RECOMMENDATIONS: Re-evalaution once patient's condition restabilizes. Awaiting PT referral. TREATMENT CODE/TIME:? NC
--- NOTE | 2023-05-17 16:51 | W.PM.PROGNOT ---
Date of Service Date of service: 05/17/23 Time of Service: 16:51 Assessment and Plan Assessment and plan (1) Sepsis: Status: Acute Assessment and plan: In setting of back pain and now headache, falls, h/o spinal injections and a radiofrequency ablation in 02/12. MRI of lumbar spine w/o evidence of abscess. CT lung/abd/pelvis w/o any source of an infectious process noted. Anesthesia consulted for LP. The patient has had symptoms for over a week and has a murmur - For now, we will continue empiric coverage with vancomycin and cefepime, await blood culture results, trend CRP and procalcitonin. Echocardiogram. Inhouse Lyme test and blood cultures at [facility] recently were negative. (2) Headache: Status: Acute Assessment and plan: Fever related and/or secondary to meningitis. As above. (3) Back pain: Status: Acute Assessment and plan: Acute on chronic back pain w/ h/o multilevel spinal stenosis of the lumbar spine w/ h/o injections and radiofrequency ablation in 02/12. As above. No evidence of Cauda Equina syndrome currently. No abscess on MRI imaging. (4) Falls: Status: Acute Assessment and plan: As above. C/s PT when more medically stable. (5) Prediabetes: Status: Acute Assessment and plan: A1c 5.8. Does predispose him to Pseudomonas, which is why antibiotics include cefepime. For now, will provide a consistent carb diet and monitor fingersticks BID. (6) CAD (coronary artery disease): Assessment and plan: Continue home therapy (7) Obstructive sleep apnea: Assessment and plan: Continue home CPAP. (8) Hypertension: Assessment and plan: Continue lisinopril and monitor. (9) Hyperlipidemia: Assessment and plan: Continue statin (10) DVT prophylaxis: Status: Acute Assessment and plan: SC heparin in anticipation of a possible procedure (11) Discharge planning issues: Status: Acute Assessment and plan: Full code as per discussion with the patient witnessed by his son. Subjective Subjective Patient reports: no new complaints, tolerating liquids well and fever; denies nausea or vomiting Interval history since last seen: Intermittent fevers accompanied by tachypnea and tachycardia. Exam Narrative Exam Narrative: General: Intermittently appears ill and diaphoretic. No confusion noted during my visits. Neurological: Ariana. Speech intact. No facial droop. Psychiatric: Appropriate speech pattern/content Skin: mild non-infected appearing excoriations of the dorsal surface of the R foot otherwise no rashes/lesions. HEENT: Sclera clear, pupils equal, MMM. Cardiovascular: RRR, +subtle GEOVANI, tachycardic Lungs: Diminished breath sounds B with upper airway fine expiratory wheezes. No crackles or rhonchi. Gastrointestinal: soft, nontender, nondistended Extremities: no edema BLEs, no calf tenderness. Objective Last Vital Signs Temp 39 C H 05/17/23 16:18 Pulse 121 H 05/17/23 16:36 Resp 32 H 05/17/23 16:36 BP 128/85 05/17/23 16:00 Pulse Ox 94 05/17/23 16:36 Laboratory Results - last 24 hr 05/15/23 05/16/23 05/16/23 22:20 17:33 17:33 WBC 11.13 H RBC 4.39 Hgb 12.7 L Hct 38.0 L MCV 87 MCH 28.9 MCHC 33.4 RDW 14.6 H Plt Count 216 MPV 10.7 Immature Gran % 0.0 Neutrophils % 89.0 Lymphocytes % 7.0 Atypical Lymphs % 1 Monocytes % 3.0 Eosinophils % 0.0 Basophils % 0.0 Nucleated RBC % 0.0 Absolute Neutrophils 9.91 H Absolute Lymphocytes 0.89 L Absolute Monocytes 0.33 Absolute Eosinophils 0.00 Absolute Basophils 0.00 RBC Morphology Normal VBG Lactate 1.9 H Sodium Potassium Chloride Carbon Dioxide Anion Gap BUN Creatinine Est GFR (CKD-EPI 2020) Glucose Calcium Magnesium Total Bilirubin AST ALT Alkaline Phosphatase C-Reactive Protein NT-Pro-B Natriuret Pep Total Protein Albumin Stl C.difficile Tox PCR Vancomycin Trough Lyme Disease Antibody Negative Add-On Test Request 05/16/23 05/16/23 05/16/23 17:47 19:36 20:30 WBC RBC Hgb Hct MCV MCH MCHC RDW Plt Count MPV Immature Gran % Neutrophils % Lymphocytes % Atypical Lymphs % Monocytes % Eosinophils % Basophils % Nucleated RBC % Absolute Neutrophils Absolute Lymphocytes Absolute Monocytes Absolute Eosinophils Absolute Basophils RBC Morphology VBG Lactate Sodium Potassium Chloride Carbon Dioxide Anion Gap BUN Creatinine Est GFR (CKD-EPI 2020) Glucose Calcium Magnesium Total Bilirubin AST ALT Alkaline Phosphatase C-Reactive Protein NT-Pro-B Natriuret Pep 472 H Total Protein Albumin Stl C.difficile Tox PCR Negative Vancomycin Trough Lyme Disease Antibody Add-On Test Request TNP 05/17/23 05/17/23 05/17/23 06:30 06:34 07:06 WBC 9.92 RBC 4.22 L Hgb 12.4 L Hct 36.7 L MCV 87 MCH 29.4 MCHC 33.8 RDW 14.7 H Plt Count 210 MPV 10.8 Immature Gran % 0.5 Neutrophils % 90.2 Lymphocytes % 6.4 Atypical Lymphs % Monocytes % 2.0 Eosinophils % 0.2 Basophils % 0.7 Nucleated RBC % 0.0 Absolute Neutrophils 8.95 H Absolute Lymphocytes 0.63 L Absolute Monocytes 0.20 Absolute Eosinophils 0.02 Absolute Basophils 0.07 RBC Morphology VBG Lactate Sodium 137 Potassium 4.4 Chloride 102 Carbon Dioxide 24.8 Anion Gap 10.2 BUN 17 Creatinine 0.9 Est GFR (CKD-EPI 2020) 92.45 Glucose 83 Calcium 8.2 L Magnesium 2.0 Total Bilirubin 0.7 AST 138 H ALT 177 H Alkaline Phosphatase 101 C-Reactive Protein 20.28 H NT-Pro-B Natriuret Pep 623 H Total Protein 6.9 Albumin 2.1 L Stl C.difficile Tox PCR Vancomycin Trough Lyme Disease Antibody Add-On Test Request 05/17/23 13:05 WBC RBC Hgb Hct MCV MCH MCHC RDW Plt Count MPV Immature Gran % Neutrophils % Lymphocytes % Atypical Lymphs % Monocytes % Eosinophils % Basophils % Nucleated RBC % Absolute Neutrophils Absolute Lymphocytes Absolute Monocytes Absolute Eosinophils Absolute Basophils RBC Morphology VBG Lactate Sodium Potassium Chloride Carbon Dioxide Anion Gap BUN Creatinine Est GFR (CKD-EPI 2020) Glucose Calcium Magnesium Total Bilirubin AST ALT Alkaline Phosphatase C-Reactive Protein NT-Pro-B Natriuret Pep Total Protein Albumin Stl C.difficile Tox PCR Vancomycin Trough 7.4 L Lyme Disease Antibody Add-On Test Request Time Spent with Patient Time Spent with Patient: 35-49 minutes Time was spent: preparing to see the patient(eg.review tests), obtaining and/or reviewing separately otained hiistory, ordering medications,tests, procedures, referring, communicating with other health child care leader, indepentently interpreting results, counseling the patient and care coordination
[2023-05-17 17:09] LABS: BE (Venous) -1 mmol/L (-2-3); HCO3 (Venous) 22 mmol/L (23-28); O2 Sat (Venous) 96 %; TCO2 (Venous) 20 mmol/L (24-29); pCO2 (Venous) 27 mmHg (41-51); pH (Venous) 7.52 (7.31-7.41); pO2 (Venous) 70 mmHg
[2023-05-17] MEDS: DOXYCYCLINE 100 MG in Normal Saline 100 ML IVPB (17:33)
[2023-05-17] MEDS: Lactated Ringers 1,000 ML 100 ML IV (17:34)
[2023-05-17] MEDS: VANCOMYCIN/WATER (PEG) 750 MG/150 ML BAG 150 MG IV (20:10)
[2023-05-17] MEDS: Simvastatin 20 MG TAB PO (21:46)
[2023-05-17] MEDS: Tamsulosin 0.4 MG CAPCR PO (21:46)
[2023-05-18] VITALS (35 sets, daily range): BP systolic 113–124; BP diastolic 64–81; PULSE 68–98; RESP 15–29; TEMP 36.1–37.3; O2SAT 92–96
[2023-05-18] MEDS: VANCOMYCIN/WATER (PEG) 750 MG/150 ML BAG 150 MG IV ×4 (01:58→21:30)
[2023-05-18] MEDS: CEFEPIME 2 GM in Normal Saline 100 ML IVPB ×3 (04:02→20:40)
[2023-05-18] MEDS: Lactated Ringers 1,000 ML 100 ML IV (05:19)
[2023-05-18] MEDS: DOXYCYCLINE 100 MG in Normal Saline 100 ML IVPB ×2 (05:31→18:17)
[2023-05-18] MEDS: Heparin 5,000 UNITS/ML VIAL 5000 UNITS SC (05:33)
[2023-05-18] MEDS: ACETAMINOPHEN 1,000 MG/100 ML BTL 400 MG IVPB (06:08)
[2023-05-18] MEDS: Normal Saline Flush 10 ML SYR IVP ×3 (06:21→23:11)
[2023-05-18 06:47] LABS: HCT 32.3 % (40.0-50.0); MCH 29.4 pg (27.0-33.0); MCHC 34.1 % (32.0-36.0); MCV 86 fL (80-95); MPV 11.5 fL (8.0-11.0); Platelet Count 211 10^3/uL (130-400); RBC 3.74 10^6/uL (4.36-5.78); RDW 14.8 % (11.8-14.1); RDW-SD 47.5 fL
[2023-05-18 07:17] LABS: ALT 165 U/L (16-63); AST 128 U/L (15-37); Albumin 1.7 g/dL (3.4-5.0); Alkaline Phosphatase 91 U/L (46-116); BUN 28 mg/dL (7-18); Bilirubin, Total 0.5 mg/dL (0.2-1.0); CREATININE 0.9 mg/dL (0.70-1.30); Calcium 7.7 mg/dL (8.5-10.1); Chloride 102 mmol/L (98-107); Estimated GFR 92.45 (mL/min/1.73m2); Glucose 100 mg/dL (74-106); Potassium 3.6 mmol/L (3.5-5.1); Sodium 136 mmol/L (136-145); Total Protein 6.1 g/dL (6.4-8.2)
[2023-05-18 07:20] LABS: C-Reactive Protein 14.66 mg/dL (0.0-0.3)
[2023-05-18 07:26] LABS: Absolute Neutrophil Count 5.23 10^3/uL (1.2-6.7)
[2023-05-18 07:27] LABS: Absolute Basophil Count 0.06 10^3/uL (0.0-0.2); Absolute Lymphocyte Count 0.95 10^3/uL (1.2-3.4); Absolute Monocyte Count 0.06 10^3/uL (0.1-0.8); Atypical Lymphocytes % 4; Diff Comment Manual Differential; RBC Morphology Normal
[2023-05-18 07:31] LABS: Procalcitonin 1.1 ng/mL
[2023-05-18] MEDS: Ketorolac 15 MG/ML VIAL IVP (07:33)
--- NOTE | 2023-05-18 07:55 | NUR.NOTE ---
In chart for sepsis quality/education review Nursing Note:
--- NOTE | 2023-05-18 08:00 | DI.US_ITS ---
APPROVED REPORT EXAM: Comprehensive 2D, Doppler, and color-flow Echocardiogram Patient Location: In-Patient Room/Bed: [address] [employer] Operating Engineer: Efe Mujica RDMS, RVT Indications: ? endocarditis, subtle murmur, CAD, HTN, ETOH, smoker Other Information Study Quality: Adequate. Technically limited study due to inability to position patient, patient inab ility to follow breathing instructions. Conclusion Normal left ventricular wall thickness and chamber size. Ejection fraction is 55%. Wall motion is n ormal Normal right ventricular size and systolic function Both atria are normal in size Aortic valve is sclerotic and trileaflet without stenosis or regurgitation There is no additional structural or hemodynamically significant valvular disease No valvular vegetations were appreciated Wall motion Left Ventricle The left ventricle is normal size. Left ventricular systolic function is normal There is normal left ventricular wall thickness. No segmental wall motion abnormalities There is no ventricular septal def ect visualized. LVEF is 55%. Right Ventricle The right ventricle is normal size. The right ventricular systolic function is normal. Atria The left atrium size is normal. The right atrium size is normal. The interatrial septum is intact wit h no evidence for an atrial septal defect. Aortic Valve The Aortic valve is sclerotic. Aortic valve is trileaflet. There is no aortic valvular stenosis. No a ortic regurgitation is present. Mitral Valve The mitral valve is normal in structure. No evidence of mitral valve stenosis. There is no mitral sasha ve regurgitation noted. Tricuspid Valve The tricuspid valve is normal in structure. There is no tricuspid valve stenosis. Trace tricuspid reg urgitation. Pulmonic Valve The pulmonary valve is normal in structure. There is no pulmonic valvular stenosis. There is no pulmo jqauan valvular regurgitation. Great Vessels The aortic root is normal in size. Ascending aorta is not well visualized. Aortic arch is not well vi sualized. IVC is normal in size and collapses >50% with inspiration. Pericardium There is no pericardial effusion. 2D Dimensions IVSD d PLAX 0.75 cm M: 0.6-1.2 LV Vol A2C d MOD 132.5 mL LVPW d PLAX 0.73 cm M: 0.6 - 1.2 LV Vol A4C d MOD 135.6 mL LVID d PLAX 5.12 cm M: 4.2 - 5.8 LA Area A4C s MOD 18.89 cm2 LVDs 3.70 cm M: 2.5 - 4.0 LV EF A4C MOD 51.5 % Ao Root d 3.16 cm M: 3.1 - 3.7 LV EF A2C MOD 50.2 % LV EF Teichholz 52.4 % LV EF Biplane MOD 52.6 % LVEF (Fraire's) 52.60 % M: 52 - 72 SV 72.12 mL LV Volume 137.11 mL M: 62 - 150 LV Volume Index 70.67 mL/m2 M: 34 - 74 LV Vol Biplane MOD 137.1 mL FS 27.05 % M-Mode TAPSE 2.21 cm (M/F) >1.7 LV Diastology MV E' medial 0.117 (>0.07 m/s) E/A Ratio 0.9 LV E/e MED 7.20 (<14) MV E Vmax 0.85 (0.4-1.3 m/s) MV E' lateral 0.145 (>0.1 m/s) MV A Vmax 0.95 (0.4-1.3 m/s) LV E/e LAT 5.80 (<14) MV E/A Ratio 0.86 MV E/E' medial 7.21 MV E/E' lateral 5.83 Aortic Valve LVOT Area 2.99 cm2 AoV Area Vmax 2.12 cm2 LVOT Vmax 1.07 m/s MARTIN Mean Jluian. 2.05 cm2 LVOT Mean Julian. 0.71 m/s LVOT Peak Grad 4.6 mmHg LVOT Mean Grad 2.4 mmHg LVOT VTI 0.177 m LVOT Diam s 1.95 cm AoV Vmax 1.52 m/s Velocity Ratio 0.70 AoV Mean Julian. 1.03 m/s AoV Peak Grad 9.2 mmHg LVOT SV 52.86 mL AoV Mean Grad 4.9 mmHg AoV VTI 0.267 m AoV Area VTI 1.98 cm2 Mitral Valve MV DT 205 (160-240 msec) MV PHT 60 msec MV Area PHT 3.69 cm2 MV VTI 0.279 m MV Area VTI 1.89 (4.0-6.0 cm2) Pulmonary Valve PV Vmax 1.85 (0.5-1.5 m/s) RVOT Peak Gr. 1.62 mmHg PV Peak Grad 13.6 mmHg RVOT Mean Gr. 0.90 mmHg PV Mean Grad 7.0 mmHg RVOT VTI 0.150 m PV VTI 0.372 m RVOT Vmax 0.64 m/s Tricuspid Valve TR Peak Grad 18.5 mmHg TR Vmax 2.15 m/s RA Pressure 3.00 mmHg RVSP (TR) 21.5 mmHg
--- NOTE | 2023-05-18 08:32 | CMPROGNOTE_ITS ---
Date of service: 05/18/23 Time of Service: 08:32 Care Management Progress Note Progress Note Text Progress Note Text: S/O: Manan continues to be closely monitored and treated in the ICU. He was sleeping when CM attempted to meet with him. Per Hospitalist, NG is being placed and Dr. Buenrostro is consulted since his chronic bowel distension appears worsened. Manan is being treated with IV Vancomycin, doxycyline and cefepime. Pts family continues to visit frequently. Discharge needs are unknown at this time. CM will follow. A: 67 year old male admitted to [facility] on 05/15/23 for Sepsis, suspected epidural abscess P:Manan requires close monitoring and further medical workup in the ICU. NGT is planned. Surgical consult is ordered, due to worsening abdominal distension. Discharge plan is unknown at this time. CM will follow.
[2023-05-18] MEDS: Gabapentin 100 MG CAP 200 MG PO ×2 (08:33→20:55)
[2023-05-18] MEDS: Aspirin E.C. 81 MG TABEC PO (08:33)
[2023-05-18] MEDS: Lisinopril 20 MG TAB PO (08:33)
[2023-05-18] MEDS: Pantoprazole 40 MG VIAL IVP (11:41)
[2023-05-18 13:26] LABS: Vancomycin, Trough 14.8 ug/mL (10.0-20.0)
[2023-05-18 15:54] LABS: HCT 34.1 % (40.0-50.0); HGB 11.4 g/dL (13.5-17.5)
--- NOTE | 2023-05-18 16:04 | IN_ITS ---
Date of service: 05/18/23 Time of Service: 15:16 PT Notes Visit Reasons: Sepsis, Suspected Epidural Abscess Physical Therapy Inpatient Initial Evaluation Date: 05/18/23 Referring Doctor: Bentley Santos MD PT Orders: PT CONSULT: Eval & treat Precautions: Fall. Standard. Activity as tolerated. Patient Profile/Admitting Diagnosis:? Manan is 67-year-old male with past medical history significant for spinal injection and radiofrequency ablation of lumbar spine nerves on 01/2023 who presented to the ED on 05/15/23 due to intermittent fever, headache, neck pain, back pain, and generalized weakness. He required ICU level of care as of 05/17/2023 and is being re-evaluated for continued services for functional mobility decline and repeated falls (5x at home in the past week). Patient requires continued management for diagnosis of sepsis, headache, back pain, repeated falls, prediabetes, CAD, hypertension, and hyperlipidemia. Tested negative for Lyme disease. MRI is negative for epidural abscess. PMHX: All Active Problems?(Updated 05/16/23 @ 04:53 by Shannan Roberson MD) Headache (Acute) Sepsis (Acute) Discharge planning issues (Acute) DVT prophylaxis (Acute) Weakness (Acute) Falls (Acute) Fever (Acute) Back contusion (Acute) Lumbosacral spondylosis without myelopathy (Acute) Back pain (Acute) Leg pain (Acute) Arthritis of right shoulder region (Acute) Angina pectoris (Chronic) Prediabetes (Acute) Chest pain (Acute) Medical History? CAD (coronary artery disease) Choroidal nevus History of wound infection Hx of colonic polyps Hydrocele, right Hyperlipidemia Hypertension Nevus of choroid of right eye Obesity Obstructive sleep apnea Rectus diastasis of lower abdomen Spinal stenosis Squamous cell carcinoma Steatosis of liver Tobacco abuse Surgical History? H/O radiofrequency ablation (RFA) of nerve of lumbar spine S/P hernia repair Social History/Home Situation: Lives with spouse, 5-6 KEVIN, independent at baseline. 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 Equipment Owned/DME: None Subjective:? Denies pain, headache, chest pain, and lightheadedness throughout session. Continues to report being weak and tired. States that he has fallen about 5x just this week. Adds that his is also mobility limited and uses a front- wheeled walker at baseline. Wants very much to get better soon so he can go back to smoking meat, he does not want any back jobs and his needs him. Objective:? General Observation: Patient resting in bed. Telemetry monitoring in place. IV temporarily capped by Nurse Patricia to facilitate safe for walking in the hallway. Mental Status: A&O x3 Pain: Denies ROM: Right Upper Extremity: Shoulder Flexion WFL. Shoulder abduction WFL. Elbow flexion WFL. Wrist flexion WFL. Opening and closing of hand WFL. Left Upper Extremity: Shoulder Flexion WFL. Shoulder abduction WFL. Elbow flexion WFL. Wrist flexion WFL. Opening and closing of hand WFL. Right Lower Extremity: Hip flexion WFL. Hip abduction WFL. Knee flexion WFL. Ankle dorsiflexion WFL. Ankle plantarflexion WFL. Left Lower Extremity: Hip flexion WFL. Hip abduction WFL. Knee flexion WFL. Ankle dorsiflexion WFL. Ankle plantarflexion WFL. Strength: Right Upper Extremity: Shoulder flexors 3+/5. Shoulder abductors 3+/5. Elbow flexors 4-/5. Elbow extensors 4-/5. Web Marketing Analyst strong. Left Upper Extremity: Shoulder flexors 3+/5. Shoulder abductors 3+/5. Elbow flexors 4-/5. Elbow extensors 4-/5. Web Marketing Analyst strong. Right Lower Extremity: Hip flexors 3+/5. Knee flexors 4-/5. Knee extensors 4-/5. Ankle dorsiflexors 4-/5. Left Lower Extremity: Hip flexors 3+/5. Knee flexors 4-/5. Knee extensors 4-/5. Ankle dorsiflexors 4-/5. Sensation:? Intact as to pain and pressure on bilateral lower extremities. Bed Mobility/Transfers: Rolling: contact guard assist Supine to sit: minimal assist with HOB at 30 degrees Sit to stand: contact guard assist, cues for hand placement and trunk position ing needed Stand to sit: minimal assist, cues for hand placement and trunk positioning needed Gait:? Tolerated level surface ambulation of 100 feet + 100 feet +150 feet using front wheeled walker with wheelchair follow for safety with HR variation of 80 bpm to 108 bpm. Contact guard assist. Steps appeared hesitant. Step length and height decreased, patient almost shuffling initially. When cued to take a bigger and taller steps, appeared to lose balance posteriorly. Improved later on in the walk. No LOB. NO SOB. Difficulty with turning around, required con tact guard assist for safety. Balance:? Static Sitting: Good Dynamic Sitting: Fair Static Standing: Fair Dynamic Standing: Fair Special Tests: Mobility Limitations Standardized Measure [facility] AM-PAC 6 clicks Basic Mobility Inpatient Short Form: Raw Score: 18 ? CMS Score: 47% deficit Informed Consent/Education:? Patient instructed in purpose of PT consult and plan of care. He is agreeable to working with PT as he very much want to go back to work and help his . Assessment: Manan has improved his mobility level compared to day of admission. Denies headache, neck pain, and back pain. Now requires use of FWW for all transfer and ambulation tasks. Patient presents with clinical signs and symptoms consistent with current/admitting diagnoses that have resulted to mobility limitations, gait instability, generalized weakness, and impairment of motor control as demon strated by the following impairment level findings: 1. Decreased strength to B UE/LE muscle groups 2. Impaired sitting/standing balance 3. Impaired activity tolerance Impairments are contributing to the following functional limitations: 1. Decline in bed mobility skills 2. Increased dependence with transfers 3. Inability to safely ambulate without assistive device and physical assistance 4. Increase completion time for mobility ADL performance 5. Increased fall risk 6. Inability to negotiate steps alone safely Patient is assessed as a 76007 moderate complexity based on the following: History: Manan is 67-year-old male with past medical history significant for spinal injection and radiofrequency ablation of lumbar spine nerves on 01/2023 who presented to the ED on 05/15/23 due to intermittent fever, headache, neck pain, back pain, and generalized weakness. He required ICU level of care as of 05/17/2023 and is being re-evaluated for continued services for functional mobility decline and repeated falls (5x at home in the past week). Patient requires continued management for diagnosis of sepsis, headache, back pain, repeated falls, prediabetes, CAD, hypertension, and hyperlipidemia. Tested negative for Lyme disease. MRI is negative for epidural abscess. Examination: Demonstrable impairment in strength, balance, and mobility level with underlying impairments and functional limitations as documented above Presentation: Evolving Decision Makin moderate complexity Goals: Goals x1 week 1. Supine-Sit: independent 2. Sit-Supine: independent 3. Sit-Stand: independent 4. Stand-Sit: independent 5. Bed-Chair: independent 6. Chair-Bed: independent 7. Independent gait on level surface with use of no device for at least 1000 feet without report of pain nor dyspnea 8. Good static and dynamic standing balance/tolerance 9. Independent with home exercise program 10. Independent stair negotiation while holding onto bilateral rails for at least 6 steps without report of pain nor dyspnea Plan of Care/Treatment Plan: 1-2x/day, 7 days/week x1 week. Plan of care has been reviewed with the COUNTER [employer] providing the service under Physical Therapy direction. Initiate Physical Therapy intervention for strengthening, bed mobility, transfers, gait, stairs, balance training, and use of assistive device. DISCHARGE RECOMMENDATIONS: HH vs SNF based on ability to progress towards goals and availability of help at home TREATMENT CODE/TIME:? 76369 x 25 minutes, 08398 x 15 minutes beginning at 15:16 PM Thank you for the opportunity to participate in the care of this patient. Joi Taylor PT, DPT, CLT [facility] [place], [place]
--- NOTE | 2023-05-18 16:51 | PGE_ITS ---
Date of Service Date of service: 05/18/23 Time of Service: 16:51 Assessment and Plan Assessment and plan (1) Sepsis: Status: Acute Assessment and plan: In setting of back pain and now headache, falls, h/o spinal injections and a radiofrequency ablation in 02/12. MRI of lumbar spine w/o evidence of abscess. CT lung/abd/pelvis w/o any source of an infectious process noted. Echocardiogram today was unremarkable with EF of 55%. No valvular vegetations appreciated. Initiated doxycycline yesterday afternoon; significant concern for anaplasmosis. afebrile today and feels better. Walked with PT. Inhouse Lyme test and blood cultures at [facility] recently were negative. (2) Headache: Status: Acute Assessment and plan: Fever related and/or secondary to meningitis. As above. (3) Back pain: Status: Acute Assessment and plan: Acute on chronic back pain w/ h/o multilevel spinal stenosis of the lumbar spine w/ h/o injections and radiofrequency ablation in 02/12. As above. No evidence of Cauda Equina syndrome currently. No abscess on MRI imaging. (4) Falls: Status: Acute Assessment and plan: As above. PT initiated and walked. He had to have significant assistance with walking/transfering upon admission. (5) Prediabetes: Status: Acute Assessment and plan: A1c 5.8. Does predispose him to Pseudomonas, which is why antibiotics include cefepime. For now, will provide a consistent carb diet and monitor fingersticks BID. (6) CAD (coronary artery disease): Assessment and plan: Continue home therapy (7) Obstructive sleep apnea: Assessment and plan: Continue home CPAP. (8) Hypertension: Assessment and plan: Continue lisinopril and monitor. (9) Hyperlipidemia: Assessment and plan: Continue statin (10) DVT prophylaxis: Status: Acute Assessment and plan: SC heparin in anticipation of a possible procedure (11) Discharge planning issues: Status: Acute Assessment and plan: Full code as per discussion with the patient witnessed by his son. Subjective Subjective Patient reports: feels better, bowel movement and afebrile; denies nausea, vomiting or shortness of breath Exam Narrative Exam Narrative: General: Comfortable appearing. Cooperative and interactive. Neurological: Ariana. No facial droop. Skin: mild non-infected appearing excoriations of the dorsal surface of the R foot otherwise no rashes/lesions. HEENT: Sclera clear, pupils equal, MMM. Cardiovascular: RRR, +subtle GEOVANI, tachycardic Lungs: Diminished breath sounds B with upper airway fine expiratory wheezes. No crackles or rhonchi. Gastrointestinal: Nontender, ND. +BS. Extremities: no edema BLEs Objective Last Vital Signs Temp 36.4 C L 05/18/23 08:00 Pulse 75 05/18/23 16:03 Resp 23 05/18/23 16:03 BP 113/71 05/18/23 16:03 Pulse Ox 92 05/18/23 16:03 Laboratory Results - last 24 hr 05/17/23 05/18/23 05/18/23 17:03 06:30 06:30 WBC RBC Hgb Hct MCV MCH MCHC RDW Plt Count MPV Immature Gran % Neutrophils % Lymphocytes % Atypical Lymphs % Monocytes % Eosinophils % Basophils % Nucleated RBC % Absolute Neutrophils Absolute Lymphocytes Absolute Monocytes Absolute Eosinophils Absolute Basophils RBC Morphology VBG pH 7.52 H VBG pCO2 27 L VBG pO2 70 VBG HCO3 22 L VBG Total CO2 20 L VBG O2 Saturation 96 VBG Base Excess -1 Sodium 136 Potassium 3.6 Chloride 102 Carbon Dioxide 26.0 Anion Gap 8.0 BUN 28 H Creatinine 0.9 Est GFR (CKD-EPI 2020) 92.45 Glucose 100 Calcium 7.7 L Total Bilirubin 0.5 AST 128 H ALT 165 H Alkaline Phosphatase 91 C-Reactive Protein 14.66 H Total Protein 6.1 L Albumin 1.7 L Procalcitonin Vancomycin Trough 05/18/23 05/18/23 05/18/23 06:30 06:30 12:53 WBC 6.30 RBC 3.74 L Hgb 11.0 L Hct 32.3 L MCV 86 MCH 29.4 MCHC 34.1 RDW 14.8 H Plt Count 211 MPV 11.5 H Immature Gran % 0.0 Neutrophils % 83.0 Lymphocytes % 11.0 Atypical Lymphs % 4 Monocytes % 1.0 Eosinophils % 0.0 Basophils % 1.0 Nucleated RBC % 0.0 Absolute Neutrophils 5.23 Absolute Lymphocytes 0.95 L Absolute Monocytes 0.06 L Absolute Eosinophils 0.00 Absolute Basophils 0.06 RBC Morphology Normal VBG pH VBG pCO2 VBG pO2 VBG HCO3 VBG Total CO2 VBG O2 Saturation VBG Base Excess Sodium Potassium Chloride Carbon Dioxide Anion Gap BUN Creatinine Est GFR (CKD-EPI 2020) Glucose Calcium Total Bilirubin AST ALT Alkaline Phosphatase C-Reactive Protein Total Protein Albumin Procalcitonin 1.1 Vancomycin Trough 14.8 05/18/23 12:53 WBC RBC Hgb 11.4 L Hct 34.1 L MCV MCH MCHC RDW Plt Count MPV Immature Gran % Neutrophils % Lymphocytes % Atypical Lymphs % Monocytes % Eosinophils % Basophils % Nucleated RBC % Absolute Neutrophils Absolute Lymphocytes Absolute Monocytes Absolute Eosinophils Absolute Basophils RBC Morphology VBG pH VBG pCO2 VBG pO2 VBG HCO3 VBG Total CO2 VBG O2 Saturation VBG Base Excess Sodium Potassium Chloride Carbon Dioxide Anion Gap BUN Creatinine Est GFR (CKD-EPI 2020) Glucose Calcium Total Bilirubin AST ALT Alkaline Phosphatase C-Reactive Protein Total Protein Albumin Procalcitonin Vancomycin Trough Time Spent with Patient Time Spent with Patient: 25-34 minutes Time was spent: preparing to see the patient(eg.review tests), obtaining and/or reviewing separately otained hiistory, ordering medications,tests, procedures, referring, communicating with other health home care provider, indepentently interpreting results, counseling the patient and care coordination
[2023-05-18] MEDS: Normal Saline 500 ML IV (18:30)
[2023-05-18] MEDS: Simvastatin 20 MG TAB PO (20:55)
[2023-05-18] MEDS: Nystatin 500000 UNITS/5 ML SUSP 5ML CUP PO (20:55)
[2023-05-18] MEDS: Tamsulosin 0.4 MG CAPCR PO (20:55)
[2023-05-19] VITALS (9 sets, daily range): BP systolic 110–127; BP diastolic 68–80; PULSE 68–80; RESP 20–22; TEMP 36.1–37; O2SAT 96
[2023-05-19] MEDS: VANCOMYCIN/WATER (PEG) 750 MG/150 ML BAG 150 MG IV (01:22)
[2023-05-19] MEDS: CEFEPIME 2 GM in Normal Saline 100 ML IVPB ×2 (03:08→12:01)
[2023-05-19] MEDS: Normal Saline Flush 10 ML SYR IVP ×2 (03:50→07:54)
[2023-05-19] MEDS: DOXYCYCLINE 100 MG in Normal Saline 100 ML IVPB (06:41)
[2023-05-19 07:29] LABS: C-Reactive Protein 6.54 mg/dL (0.0-0.3)
[2023-05-19] MEDS: Pantoprazole 40 MG VIAL IVP (07:54)
[2023-05-19] MEDS: Nystatin 500000 UNITS/5 ML SUSP 5ML CUP PO ×2 (07:54→14:32)
[2023-05-19] MEDS: Lisinopril 20 MG TAB PO (07:55)
[2023-05-19] MEDS: Gabapentin 100 MG CAP 200 MG PO (07:55)
[2023-05-19] MEDS: Acetaminophen 325 MG TAB 650 MG PO (07:55)
--- NOTE | 2023-05-19 10:02 | PTTR_ITS ---
Date of service: 05/19/23 Time of Service: 09:31 PT Notes Visit Reasons: Sepsis, Suspected Epidural Abscess Inpatient Physical Therapy Treatment Note [facility] Date: 05/19/23 PRECAUTIONS: Fall, standard, activity as tolerated SUBJECTIVE: Patient sitting up in chair, eager for therapy. OBJECTIVE: PAIN: none reported BED MOBILITY/TRANSFERS Sit-stand: SBA Stand-sit: SBA Bed-Chair: CGA Chair-bed: CGA GAIT Assistive Device: FWW Weight bearing: full Assist: CGA Distance: 360 feet Deviation: Patient takes extremely short steps, shuffling gait, weight tends to be back in his heels. With verbal, visual, tactile cues had patient practice exaggerated gait sequence including exaggerated knee flexion, hip flexion, knee and hip extension. Cues to put weight forward through walker, push walker further forward. Patient able to consciously exaggerate gait sequence, promptly returns to shuffling gait with weight back on heels once released from practice. 2x family members present, they ask about obtained a FWW for home as patient cur rently only has 4WWs and they feel (as do I) that patient would benefit from the added stability from a FWW. STAIRS: Patient ascends 13 six inch stairs with single railing using (B) hands on one railing, reciprocal gait pattern, CGA. Patient's weight still appears to be uncomfortably far back. Patient descends 13 six inch stairs using bilateral railings, step-to gait pattern. Comments that his stairs at home are fewer and less steep. No LOB. ASSESSMENT: Patient tolerates therapy well, is motivated and eager to get home. Will require FWW for discharge. Would benefit from continued gait and balance training. PLAN: Continue global strengthening, gait and balance training per plan of care. TREATMENT CODE/TIME: 20297 Gait 27 minutes beginning at 9:31
--- NOTE | 2023-05-19 15:08 | NUR.NOTE ---
Accessed chart to determine orders for EKG and to determine whether or not one needs to be cancelled. Nursing Note:
--- NOTE | 2023-05-19 16:12 | W.PM.DS.N ---
Date of service: 05/19/23 Time of Service: 16:12 DS: Diagnosis Discharge Diagnosis (1) Sepsis: Status: Acute Asessment and Plan: Fever, mildly elevated lactate of 1.9 and WBC of 12.27. Blood cultures neg. Previous blood cultures at [facility] were also negative. Resolved. In setting of back pain and now headache, falls, h/o spinal injections and a radiofrequency ablation in 02/12 there was initial concern for an epidural abscess. MRI did not reveal an abscess, osteomyelitis or discitis. Echocardiogram was unremarkable wit an EF of 55%. No valvular vegetations noted. After the addition of doxycycline he defervesced and his lower extremity weakness improved markedly. Tick panel pending other than a negative Lyme antibody. Suspected anaplasmosis. Will continue doxycycline for another 7 days. Recommendation for anaplasmosis is continue doxycycline for at least 3 days after afebrile. (2) Headache: Status: Acute Asessment and Plan: Much improved. Coincidental with fever most of the time. (3) Back pain: Status: Acute Asessment and Plan: Significant DJD of all levels of his spine. He will continue to work with pain management. (4) Falls: Status: Acute Asessment and Plan: His lower extremities were progressively becoming weaker over the course of appx 4 weeks. Now much improved. Will cont with rehab efforts for strength, gait stability and safety with home health PT (5) Prediabetes: Status: Acute Asessment and Plan: A1c of 5.8 (6) CAD (coronary artery disease): Asessment and Plan: No anginal symptoms Cont aspirin and simvastatin. (7) Obstructive sleep apnea: Asessment and Plan: Uses CPAP (8) Hypertension: Asessment and Plan: Cont lisinopril. (9) Hyperlipidemia: Asessment and Plan: Cont simvastatin. Discharge Plan Disposition Patient Disposition: Home Condition: Improving Discharge Details Reason For Visit: Sepsis, Suspected Epidural Abscess Admit Date/Time: 05/16/23 03:02 Admit Provider: Shannan Roberson Attending Provider: Shannan Roberson Primary Care Provider: [facility] Course Hospital Course: Mr Steele is a 67 year old male with PMHx of chronic lower back pain due to multilevel DJD and spinal stenosis, especially pronounced at? L2-3 aand L5-S1, s/p lumbar medial branch diagnostic blocks on 11/23 and 01/26, followed by radiofrequency ablation on 02/09/23 at [facility], as well as h/o prediabetes, CAD, HTN, hyperlipidemia, tobacco abuse, who states he had dental work within the last couple of months, who presented to [facility] ED last night with c/o intermittent fevers x 10 days, weakness with multiple falls at home and lower and thoracic back pain. Per ED provider, the patient denied headaches and neck pain, but to me the patient reported his headache as his most serious pain. He states he normally has difficulty moving his head up and down. He denied any pain or stiffness on moving his head/neck side to side. He denies phonophobia, photophobia, and nausea. He has had poor PO intake.? He was evaluated in [place] ER one week ago after a fall and difficulty getting up with about one day of symptoms with an essentially negative workup, per the ED provider, and was discharged home with the clinical impression of a viral syndrome. At the time, the patient did not have a headache and did not have an LP. However, the patient is not any better. Per son, who is at bedside, the patient has had numerous falls at home, including one today, which is what brought him to the hospital. He has had ongoing fevers (up to 104.2) for which he has been taking tylenol around the clock, every 4 hours.? He reports that the pain is all over, in all his joints, but it is especially bad in the head/neck and his thoracic and lower back.? He does report having urinary and fecal incontinence at home and denies saddle anesthesia. Denies numbness/tingling in his bilateral legs. In our ED, his temperature has gone up to 39.1, and he is tachycardic with HR in 110s-120s. He has a nonfocal neurologic exam and a preserved rectal tone without meningeal signs, per the ED provider, to whom he had denied a headache, per the provider. His FLUVID testing came back negative. He has a leucocytosis with WBC of 12.27, 88% neutrophils, an elevated procalcitonin of 1.1. His UA is negative. Tick panel sent. CT imaging of head, C-spine, Chest, abdomen, and pelvis, as well as thoracic and lumbar spine do not reveal any acute abnormality. He does have chronic known multilevel degenerative changes, however, it is difficult to evaluate the central canal secondary to artifact, per Vrad read. He was started on empiric coverage for an epidural abscess with vancomycin and cefepime. Hospitalist admission for further evaluation and treatment was requested. See Diagnosis PCP f/u in 1 week Home Meds and New Rx's Prescriptions: New doxycycline hyclate 100 mg Capsule 100 mg PO BID Qty: 14 0RF Continued acetaminophen [Tylenol Arthritis Pain] 650 mg tablet extended release 650 mg PO Q8H diclofenac sodium [Voltaren Arthritis Pain] 1 % gel 2 g topical QID PRN Rx Instructions: apply to single elbow, wrist or hand; for hand includes palm/fingers/back of hand docusate sodium [Colace] 100 mg capsule 100 mg PO BID PRN tamsulosin 0.4 mg capsule 0.4 mg PO DAILY simvastatin 20 mg tablet 20 mg PO QHS multivitamin Tablet 1 tab PO DAILY gabapentin 100 mg Capsule 200 mg PO BID lisinopril 20 MG tablet 20 mg PO DAILY aspirin [Ecotrin Low Strength] 81 MG tablet,delayed release (DR/EC) 81 mg PO DAILY nitroglycerin 0.4 MG tablet, sublingual 1 tab Sublingual DIRECTED PRN cholecalciferol (vitamin D3) 1,000 UNITS tablet 1 tab PO DAILY Discharge Instructions Activity:: Activity as Tolerated Equipment/Supplies:: No Equipment Needed Diet:: Resume usual home diet Discharge Orders Discharge Orders: Discharge Order (Routine); Ordered 05/19/23 Ordered By: Bentley Santos DS: Summary Time Spent with Patient providing and/or coordinating discharge services: Greater than 30 minutes Status at Discharge Functional status at discharge: uses cane/walker (Typically ambulates w/o use of cane/walker) Overall status at discharge: patient is progressing back to baseline Mental Status: mental status grossly normal Speech and Movement: speech clear Mood: congruent mood Affect: normal affect Exam Narrative Exam Narrative: General: Comfortable appearing. Sitting in chair. Cooperative and interactive. Neurological: Ariana. No facial droop. Skin: No rashes/lesions. HEENT: Sclera clear, pupils equal, MMM. Cardiovascular: RRR, +subtle GEOVANI, tachycardic Lungs: Clear. Nonlabored breathing. Gastrointestinal: Nontender, ND. +BS. Extremities: no edema BLEs Psych Mental Status: mental status grossly normal Speech and Movement: speech clear Mood: congruent mood Affect: normal affect DS: Data Vitals/I&O Vitals and I&O: Vital Signs Temperature 36.5 C 05/19/23 12:34 Temperature Source Temporal Artery Scan 05/19/23 03:25 Pulse 72 05/19/23 12:24 Pulse Rhythm Regular 05/19/23 08:38 Pulse 81 05/18/23 18:00 Respiratory Rate 22 05/19/23 03:25 Respiratory Effort Normal, Non-Labored 05/19/23 08:38 Respiratory Depth Normal 05/19/23 08:38 Respiratory Pattern Normal 05/19/23 08:38 Blood Pressure 110/68 05/19/23 12:24 Blood Pressure Mean 79 05/19/23 12:24 Blood Pressure Position Supine 05/17/23 15:40 Pulse Oximetry 96 05/19/23 12:34 Oxygen Delivery Method Room Air 05/19/23 12:34 Oxygen Flow Rate 0 05/19/23 12:34 Fraction of Inspired Oxygen (FIO2) 21 05/18/23 09:08 Pain Level 5 05/19/23 07:55 Comment Patients own CPAP 05/19/23 00:00 Intake & Output 05/18/23 05/19/23 05/19/23 23:59 11:59 23:59 Intake Total 2080.017 / 4380.017 1030 / 1370 340 / 1370 Output Total 900 / 2700 1840 / 2640 800 / 2640 Balance 1180.017 / 1680.017 -810 / -1270 -460 / -1270 Intake: IV 1600.017 / 3300.017 390 / 490 100 / 490 Oral 480 / 1080 640 / 880 240 / 880 Output: Urine 900 / 2350 1775 / 2575 800 / 2575 Post Void Residual 65 / 65 Other: Urine Color Yellow Pale Yellow Yellow Urine Appearance Clear Clear Clear Urine Odor None Normal Comment Voided urine not caught in urinal. Estimated volume 150-200. Patient stood @ bedside to void in urinal. Cloudy, yellow urine with some sediment. Stool Size Large Stool Characteristics Liquid Brown Black Voiding Methods Urinal Urinal Urinal Data Completed and Pending Labs on day of discharge: Labs from last 24 hours 05/19/23 05/18/23 06:00 12:53 C-Reactive Protein 6.54 H Vancomycin Trough 14.8 Preliminary micro results at discharge 05/15/23 22:25 Blood Culture - Preliminary Blood NO GROWTH 72 HOURS 05/15/23 22:20 Blood Culture - Preliminary Blood NO GROWTH 72 HOURS PFSH All Active Problems Headache (Acute) Sepsis (Acute) Discharge planning issues (Acute) DVT prophylaxis (Acute) Weakness (Acute) Falls (Acute) Fever (Acute) Back contusion (Acute) Lumbosacral spondylosis without myelopathy (Acute) Back pain (Acute) Leg pain (Acute) Arthritis of right shoulder region (Acute) Angina pectoris (Chronic) Prediabetes (Acute) Chest pain (Acute) Medical History CAD (coronary artery disease) Choroidal nevus History of wound infection Hx of colonic polyps Hydrocele, right Hyperlipidemia Hypertension Nevus of choroid of right eye Obesity Obstructive sleep apnea Rectus diastasis of lower abdomen Spinal stenosis Squamous cell carcinoma Steatosis of liver Tobacco abuse Surgical History H/O radiofrequency ablation (RFA) of nerve of lumbar spine S/P hernia repair Family History Mother Alzheimer disease Father Heart disease Hypertension Social History Smoking/Tobacco Use Status: Former Tobacco Use Smoking risk assessment performed?: Yes Alcohol Intake: current Alcohol Intake frequency: holidays/special occasions only Drug use: Never Substance use type: does not use Household members: spouse Housing: house Number of Children: 1 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
--- NOTE | 2023-05-19 16:29 | PDOC.HHF2F_ITS ---
Home Health Referral Home Health Orders Clinical synopsis of why skilled professionals are needed: Pt presented with fevers up to 104F and progressive BLE weakness. After the addition of doxycyline to his antibiotic regime he defervesced and BLE weakness improved significantly. Suspect anaplasmosis; result of this test is pending (send out to [facility] lab). Medical diagnosis necessitation home health referral: BLE weakness improving but still not to baseline. Registered Nurse: Check all that apply Instruct on new or changed medication(s)/assess compliance: Ordered Physical Therapist: Check all that apply Increase strength & endurance for safe mobility at home: Ordered To design/establish home maintenance program: Ordered Fall reduction therapy program for patient with history of frequent falls: Ordered Home Bound Status Requires the aid of supportive device (check all that apply): Walker Assistance of another person (Describe assistance and medical necessity): Unstable gait currently requiring a walker; assistance by another person outside of the home for safe ambulation. Describe why leaving home would require a considerable and taxing effort: Requires frequent rest periods Encounter Date and Reason: I certify that a FTF encounter for this patient was performed on May 19, 2023 and that such encounter was related to the primary reason the patient requires home health services. The encounter was conducted in the following manner: * By me as the certifying physician, REGISTRATION COORDINATOR, PA or * By an inpatient physician, REGISTRATION COORDINATOR or PA during an inpatient stay who communicated findings to me, Certification And Authentication I certify that I composed the above information based on my clinical judgment relating to this patient's medical condition and, if applicable, clinical findings communicated to me by the NPP or inpatient physician who performed the FTF encounter. Name of Provider that will be monitoring home health services: Bentley Santos
--- NOTE | 2023-05-19 17:19 | PDOC.CMDIS ---
Date of service: 05/19/23 Time of Service: 17:19 LACE Index Scoring Tool Questions: Length of Stay (in days): 3 Was the patient admitted via the E.D.?: Yes Comorbidities: Any Tumor E.D. Visits: 1 Answers: Total Score: 9 Risk of Readmission: Low Risk Care Management Discharge Plan Reason for Hospitalization: Sepsis, suspected epidural abscess Discharge Plan: Manan will return home with new home health orders; RN, PT, he will also have a new prescription for a two week course of oral antibiotic. He will follow up with his PCP and plan of care and transport via private vehicle with his family. Patient/Family Education Needs: Review discharge instructions, discuss Ask Me Three. Services Needed at Discharge: Home Health Care Services
[2023-05-19 17:39] LABS: B. miyamotoi PCR Negative (Negative); Babesia divergens/MO-1 Negative (Negative); Babesia duncani Negative (Negative); Babesia microti Negative (Negative); Ehrlichia chaffeensis Negative (Negative); Ehrlichia ewingii/canis Negative (Negative); Ehrlichia muris eauclairensis Negative (Negative)
[2023-05-19 18:30] LABS: Anaplasma phagocytophilum Positive (Negative)
--- NOTE | 2023-05-22 14:32 | INDS_ITS ---
PT Notes Visit Reasons: Sepsis, Suspected Epidural Abscess Physical Therapy Inpatient Discharge Summary Treatment Dates: 05/18/23 - 05/19/23 This document serves as a summary of care. No PT services were provided on this date. Patient Profile/Admitting Diagnosis:Noe Hinkle is 67-year-old male with past medical history significant for spinal injection and radiofrequency ablation of lumbar spine nerves on 01/2023 who presented to the ED on 05/15/23 due to intermittent fever, headache, neck pain, back pain, and generalized weakness. He participated in skilled PT intervention for 2 sessions, then was able to transfer home with services. Social History/Home Situation: Lives with spouse, 5-6 KEVIN, independent at baseline. 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 Equipment Owned/DME: None Subjective:? none obtained Objective:? ROM: Right Upper Extremity: Shoulder Flexion WFL. Shoulder abduction WFL. Elbow flexion WFL. Wrist flexion WFL. Opening and closing of hand WFL. Left Upper Extremity: Shoulder Flexion WFL. Shoulder abduction WFL. Elbow flexion WFL. Wrist flexion WFL. Opening and closing of hand WFL. Right Lower Extremity: Hip flexion WFL. Hip abduction WFL. Knee flexion WFL. Ankle dorsiflexion WFL. Ankle plantarflexion WFL. Left Lower Extremity: Hip flexion WFL. Hip abduction WFL. Knee flexion WFL. Ankle dorsiflexion WFL. Ankle plantarflexion WFL. Strength: Right Upper Extremity: Shoulder flexors 3+/5. Shoulder abductors 3+/5. Elbow flexors 4-/5. Elbow extensors 4-/5. Personal Care Worker strong. Left Upper Extremity: Shoulder flexors 3+/5. Shoulder abductors 3+/5. Elbow flexors 4-/5. Elbow extensors 4-/5. Personal Care Worker strong. Right Lower Extremity: Hip flexors 3+/5. Knee flexors 4-/5. Knee extensors 4-/5. Ankle dorsiflexors 4-/5. Left Lower Extremity: Hip flexors 3+/5. Knee flexors 4-/5. Knee extensors 4-/5. Ankle dorsiflexors 4-/5. Sensation:? Intact as to pain and pressure on bilateral lower extremities. BED MOBILITY/TRANSFERS? supine-sit: min A Sit-stand: SBA? Stand-sit: SBA ? Bed-Chair: CGA ? Chair-bed: CGA ? GAIT? Assistive Device: FWW? Weight bearing: full Assist: CGA ? Distance:? 360 feet? STAIRS: Patient ascends 13 six inch stairs with single railing using (B) hands on one railing, reciprocal gait pattern, CGA. Patient descends 13 six inch stairs using bilateral railings, step-to gait pattern. Cues for safety. Balance:? Static Sitting: Good Dynamic Sitting: Fair Static Standing: Fair Dynamic Standing: Fair Assessment: Manan participated in skilled PT intervention for 2 sessions during his acute care stay. He demonstrated improved safety and mobility sufficient to allow for safe return home with family support and HH PT. Goals: Goals x1 week 1. Supine-Sit: independent (not met) 2. Sit-Supine: independent (not met) 3. Sit-Stand: independent (progressing toward) 4. Stand-Sit: independent(progressing toward) 5. Bed-Chair: independent(progressing toward) 6. Chair-Bed: independent(progressing toward) 7. Independent gait on level surface with use of no device for at least 1000 feet without report of pain nor dyspnea (progressing toward) 8. Good static and dynamic standing balance/tolerance(progressing toward) 9. Independent with home exercise program(progressing toward) 10. Independent stair negotiation while holding onto bilateral rails for at least 6 steps without report of pain nor dyspnea(met) Plan of Care/Treatment Plan: D/C from PT in acute care setting. DISCHARGE RECOMMENDATIONS: Home with HH PT TREATMENT CODE/TIME:? none Thank you for the opportunity to participate in the care of this patient. Sima Delcid PT, DPT [facility] [place], [place]
== END 2023-05-19 17:10 | disposition home or self-care (01) | DRG 872 ==
LOC: ER 05-16 04:18 → MS 05-16 04:30 → ICU 05-16 17:52
PROVIDERS: Emergency Medicine; Family Medicine; Admitting Provider Internal Medicine; Emergency Provider Student in an Organized Health Care Education/Training Program; PCP Nurse Practitioner Family; Visit Provider Internal Medicine
DX: A41.9 Sepsis, unspecified organism (principal); A79.82 Anaplasmosis [A. phagocytophilum]; M54.9 Dorsalgia, unspecified; R51.9 Headache, unspecified; I25.10 Atherosclerotic heart disease of native coronary artery without angina pectoris; R73.03 Prediabetes; G47.33 Obstructive sleep apnea (adult) (pediatric); I10 Essential (primary) hypertension; E78.5 Hyperlipidemia, unspecified; W19.XXXA Unspecified fall, initial encounter; R29.6 Repeated falls; G89.29 Other chronic pain; M47.819 Spondylosis without myelopathy or radiculopathy, site unspecified; M54.50 Low back pain, unspecified; M54.6 Pain in thoracic spine; S20.224A Contusion of middle back wall of thorax, initial encounter; M47.817 Spondylosis without myelopathy or radiculopathy, lumbosacral region; E66.9 Obesity, unspecified; Z68.35 Body mass index [BMI] 35.0-35.9, adult; K76.0 Fatty (change of) liver, not elsewhere classified; Z87.891 Personal history of nicotine dependence; R41.0 Disorientation, unspecified
CPT/HCPCS: 36415; 36591; 72158; 74177; 80048; 80053; 82805; 84145; 87040; 87493; 87637; 87798; 93005; 96361; 96374; 97110; 97116; 97162; 97163; 97530; 99285; 70450; 71045; 71260; 72125; 80202; 80329; 81003; 81015; 83036; 83605; 83735; 83880; 84443; 84484; 85014; 85018; 85025; 85610; 85730; 86140; 86618; 93010; 93306; 94640; 99223; 99232; 99233; 99239; 99291; J0131; J1644; J1885; J1940; J1941; J2060; J3490; J7614; Q9967

== ENCOUNTER 2023-05-23 15:32 | Outpatient (REF) | payer MEDICARE, SELFPAY ==
--- OUTSIDE RECORDS SUMMARY | 2023-05-23 15:35 | XMS_ITS | Continuity of Care Document ---
Author Name Unknown Organization [facility] Address [address] [place] [address] Care Team Providers Care Border Measurer Name Role Phone AKANKSHA GIFFORD APRN Primary Care Physician Encounter LTTL_AZ FIN NBR [id number] Date(s): 05/06/23 - 05/06/[address] [address] [place] Encounter Diagnosis Fever(Discharge Diagnosis) - 05/06/23 Discharge Disposition: Home or Self Care Attending Physician: Adalberto Mazariegos MD Admitting Physician: Adalberto Mazariegos MD Allergies, Adverse Reactions, Alerts No Known Allergies Assessment and Plan Diagnostic Tests Pending * Blood Culture 05/06/23 * Blood Culture 05/06/23 * Lyme Disease (Borrelia Burgdorferi Abs) 05/06/23 Functional Status 05/06/23 Other exposure to Infectious Disease Non e Medications aspirin 81 mg oral capsule 81 mg = 1 cap, every 24 hr, 0 Refill(s) Start Date: 05/06/23 Status: Ordered gabapentin 100 mg oral capsule 200 mg = 2 cap, BID, 0 Refill(s) Start Date: 05/06/23 Status: Ordered ketorolac 10 mg oral tablet 10 mg = 1 tab, Oral, every 6 hr, PRN as needed for pain, not to exceed 40 mg/day and 5 days duration for all dose forms, # 6 cap, 0 Refill(s), Pharmacy: [id number], cm, 05/06/23 17:10:00 EDT, Height/Length Dosing, 97.5, kg, 05/06/23 17:10:0... Start Date: 05/06/23 Status: Ordered multivitamin adult, oral tablet 1 tab, Daily, 0 Refill(s) Start Date: 05/06/23 Status: Ordered Nitrostat 0.3 mg sublingual tablet 0.3 mg = 1 tab, every 5 min, 0 Refill(s) Start Date: 05/06/23 Status: Ordered simvastatin 20 mg oral tablet 20 mg = 1 tab, every evening, 0 Refill(s) Start Date: 05/06/23 Status: Ordered tamsulosin 0.4 mg oral capsule 0.4 mg = 1 cap, Daily, 0 Refill(s) Start Date: 05/06/23 Status: Ordered traMADol 50 mg oral tablet 50 mg = 1 tab, every 8 hr, 0 Refill(s) Start Date: 05/06/23 Status: Ordered Mental Status 05/06/23 Eye Opening Response Yojana Spontaneous ly Best Verbal Response [place] Oriented Best Motor Response [place] Obeys comman ds Yojana Coma Score 15 Results Laboratory List Name Date Urinalysis Microscopic 05/06/23 Urinalysis with Micro if Indicated and C ulture if Indicated 05/06/23 .Manual Differential (LTTL) 05/06/23 C-Reactive Protein 05/06/23 CBC w/ Diff 05/06/23 Comprehensive Metabolic Panel (CMP) 05/06 Lactic Acid 05/06/23 Magnesium Level 05/06/23 Sedimentation Rate (ESR) 05/06/23 Most recent to oldest [Reference Range]: 1 WBC [4.8-10.8 K/mcL] 6.1 K/mcL (05/06/23 5:01 PM) RBC [4.20-6.10 Million/mcL] 5.46 Million /mcL (05/06/23 5:01 PM) Segs Man 90 *NA* (05/06/23 5:01 PM) Lymph Man [20.5-51.1 %] 5.0 % *LOW* (05/06/23 5:01 PM) [place] Man [1.7-9.3 %] 1.0 % *LOW* (05/06/23 5:01 PM) Eos Man [0.00-3.00 %] 0.00 % (05/06/23 5:01 PM) BUN [8-26 mg/dL] 21 mg/dL (05/06/23 5:01 PM) UA Color [Yellow] Yellow (05/06/23 7:05 PM) UA WBC [0-3] None Seen (05/06/23 7:05 PM) Glucose Level [74-106 mg/dL] 124 mg/dL *HI* (05/06/23 5:01 PM) Potassium Level [3.5-5.1 mmol/L] 3.7 mmo l/L (05/06/23 5:01 PM) MCV [80.0-94.0 fL] 88.1 fL (05/06/23 5:01 PM) UA Urobilinogen [0.2] 0.2 (05/06/23 7:05 PM) RBC Morph [Normal] Normal (05/06/23 5:01 PM) UA Bili [Negative] Negative (05/06/23 7:05 PM) CRP [<=10.0 mg/L] 79.8 mg/L *HI* (05/06/23 5:01 PM) UA Ketones [Negative] Trace *ABN* (05/06/23 7:05 PM) AST [15-41 IntlUnit/L] 50 IntlUnit/L *HI* (05/06/23 5:01 PM) ALT [17-63 IntlUnit/L] 66 IntlUnit/L *HI* (05/06/23 5:01 PM) MCHC [32.0-36.0 g/dL] 34.5 g/dL (05/06/23 5:01 PM) Osmolality [275-295 mOsm/kg] 269 mOsm/kg *LOW* (05/06/23 5:01 PM) Sodium Level [134-143 mmol/L] 132 mmol/L *LOW* (05/06/23 5:01 PM) UA RBC [0-3] 0-3 (05/06/23 7:05 PM) UA Leuk Est [Negative] Negative (05/06/23 7:05 PM) Myelo Man 1 % *NA* (05/06/23 5:01 PM) UA Nitrite [Negative] Negative (05/06/23 7:05 PM) UA Glucose [Negative] Negative (05/06/23 7:05 PM) Hct [42.0-52.0 %] 48.1 % (05/06/23 5:01 PM) UA Bacteria [None Seen] None Seen (05/06/23 7:05 PM) Calcium Level [8.9-10.3 mg/dL] 9.2 mg/dL (05/06/23 5:01 PM) Albumin Level [3.5-5.0 g/dL] 4.4 g/dL (05/06/23 5:01 PM) Protein Total [6.5-8.1 g/dL] 7.7 g/dL (05/06/23 5:01 PM) UA Protein [Negative] 30 *ABN* (05/06/23: PM) MCH [27.0-31.0 pg] 30.4 pg (05/06/23: PM) Magnesium Level [1.8-2.5 mg/dL] 1.9 mg/d L (05/06/23: PM) Bilirubin Total [0.2-1.2 mg/dL] 0.7 mg/d L (05/06/23: PM) Hgb [14.0-18.0 g/dL] 16.6 g/dL (05/06/23: PM) Alk Phos [38-130 IntlUnit/L] 48 IntlUnit /L (05/06/23 5:01 PM) UA Blood [Negative] Small *ABN* (05/06/23 7:05 PM) MPV [7.4-10.4 fL] 10.2 fL (05/06/23 5:01 PM) Band Man 3 % *NA* (05/06/23 5: PM) UA Spec Grav [1.001-1.030] 1.025 (05/06/23 7:05 PM) Platelets [130-400 K/mcL] 152 K/mcL (05/06/23 5:01 PM) CO2 [22-32 mmol/L] 20 mmol/L *LOW* (05/06/23 5:01 PM) Lactic Acid Lvl [0.5-2.2 mmol/L] 1.7 mmo l/L (05/06/23 5:01 PM) UA pH [5.00-9.00] 5.00 (05/06/23 7:05 PM) UA Appear [Clear] Clear (05/06/23 7:05 PM) Chloride Level [98-111 mmol/L] 100 mmol/ L (05/06/23 5:01 PM) RDW-CV [11.5-14.5 %] 13.0 % (05/06/23 5:01 PM) A/G Ratio 1.3 *NA* (05/06/23 5:01 PM) BUN/Creat Ratio [8.0-20.0] 17.8 (05/06/23 5:01 PM) Globulin 3.3 *NA* (05/06/23 5:01 PM) Slide Review Man Diff (05/06/23 5:01 PM) UA Culture Ind?. [No] No (05/06/23 7:05 PM) Urine Srce Clean Catch (05/06/23 7:05 PM) Abs Baso Man [0.0-0.2 K/mcL] 0.0 K/mcL (05/06/23 5:01 PM) Abs Eos Man [0.0-0.2 K/mcL] 0.0 K/mcL (05/06/23 5:01 PM) Abs Lymph Man [1.2-3.4 K/mcL] 0.3 K/mcL *LOW* (05/06/23 5:01 PM) Abs [place] Man [0.1-0.6 K/mcL] 0.1 K/mcL (05/06/23 5:01 PM) Abs Neut Man [1.4-6.5 K/mcL] 5.7 K/mcL (05/06/23 5:01 PM) Creatinine Level [0.61-1.24 mg/dL] 1.18 mg/dL (05/06/23 5:01 PM) Plt Estimation Normal (05/06/23 5:01 PM) Anion Gap [3.0-12.0] 12.0 (05/06/23 5:01 PM) Baso Man [0.0-0.8 %] 0.0 % (05/06/23 5:01 PM) eGFR CKD-EPI [>=60 mL/min/1.73 m2] 67 mL /min/1.73 m2 (05/06/23 5:01 PM) ESR, Westergren [0-15 mm/hr] 14 mm/hr (05/06/23 5:01 PM) Radiology Reports * Exam Date Time Procedure Performing Provider Status 05/06/23 5:25 PM XR Chest 1 View Ronda Linder; Auth (Verified) Notes: (XR Chest 1 View) Reason For Exam: pain XR Chest 1 View PROCEDURE INFORMATION: Exam: XR Chest Exam date and time: 05/06/2023 5:22 PM Age: 67 years old Clinical indication: Other: Chest pain TECHNIQUE: Imaging protocol: Radiologic exam of the chest. Views: 1 view. COMPARISON: No relevant prior studies available. FINDINGS: Lungs: No focal lung consolidation. Pleural spaces: No pleural effusion or pneumothorax. Heart/Mediastinum: No significant cardiac enlargement. Bones/joints: Skeletal degeneration. IMPRESSION: No acute findings. THIS DOCUMENT HAS BEEN ELECTRONICALLY SIGNED BY ADRIANA VELAZQUEZ MD on 05/06/2023 06:19 PM Final Signed by: Adriana Velazquez MD Signed (Electronic Signature): 05/06/2023 6:19 pm Vital Signs Most recent to oldest [Reference Range]: 1 2 3 Temperature Oral [35.8-37.3 Deg C] 37.2 Deg C (05/06/23 6:55 PM) 38.1 Deg C *HI* (05/06/23 5:28 PM) 38.1 Deg C *HI* (05/06/23 4:10 PM) Peripheral Pulse Rate [60-100 bpm] 112 bpm *HI* (05/06/23 4:10 PM) Heart Rate Monitored [60-100 bpm] 76 bpm (05/06/23 6:45 PM) 77 bpm (05/06/23 6:30 PM) 85 bpm (05/06/23 6:15 PM) Respiratory Rate [12-24 br/min] 22 br/min (05/06/23 6:45 PM) 16 br/min (05/06/23 6:30 PM) 23 br/min (05/06/23 6:15 PM) Blood Pressure [90-140/60-90 mmHg] 103/60mmHg (05/06/23 6:45 PM) 111/65mmHg (05/06/23 6:30 PM) 107/63mmHg (05/06/23 6:15 PM) Mean Arterial Pressure, Cuff [65-140 mmHg] 74 mmHg (05/06/23 6:45 PM) 80 mmHg (05/06/23 6:30 PM) 78 mmHg (05/06/23 6:15 PM) Mean Arterial Pressure Cuff 73 mmHg (05/06/23 6:45 PM) 77 mmHg (05/06/23 6:30 PM) 77 mmHg (05/06/23 6:15 PM) Weight 97.50 kg (05/06/23 4:10 PM) Weight Dosing 97.50 kg (05/06/23 5:10 PM) Height 165.000 cm (05/06/23 4:10 PM) Height/Length Dosing 165.000 cm (05/06/23 5:10 PM) Body Mass Index 36.000 kg/m2 (05/06/23 4:10 PM) Social History Social History Type Response Tobacco Never tobacco user T obacco Use:. Sex Hospital Discharge Instructions Patient Education 05/06/2023 18:54:43 Fever, Adult Fever, Adult A fever is an increase in the body's temperature. It is usually defined as a temperature of 100.4??F (38??C) or higher. Brief mild or moderate fevers generally have no long-term effects, and they often do not need treatment. Moderate or high fevers may make you feel uncomfortable and can sometimes be a sign of a serious illness or disease. The sweating that may occur with repeated or prolonged fever may also cause a loss of fluid in the body (dehydration). Fever is confirmed by taking a temperature with a thermometer. A measured temperature can vary with: ??? Age. ??? Time of day. ??? Where in the body you take the temperature. Readings may vary if you place the thermometer: ??? In the mouth (oral). ??? In the rectum (rectal). ??? In the ear (tympanic). ??? Under the arm (axillary). ??? On the forehead (temporal). Follow these instructions at home: Medicines ??? Take over-the counter and prescription medicines only as told by your health care provider. Follow the dosing instructions carefully. ??? If you were prescribed an antibiotic medicine, take it as told by your health care provider. Donot stop taking the antibiotic even if you start to feel better. General instructions ??? Watch your condition for any changes. Let your health care provider know about them. ??? Rest as needed. ??? Drink enough fluid to keep your urine pale yellow. This helps to prevent dehydration. ??? Sponge yourself or bathe with room-temperature water to help reduce your body temperature as needed. Do not use ice water. ??? Do not use too many blankets or wear clothes that are too heavy. ??? If your fever may be caused by an infection that spreads from person to person (is contagious),such as a cold or the flu, you should stay home from work and public gatherings for at least 24 hours after your fever is gone. Your fever should be gone without the need to use medicines. Contact a health care provider if: ??? You vomit. ??? You cannot eat or drink without vomiting. ??? You have diarrhea. ??? You have pain when you urinate. ??? Your symptoms do not improve with treatment. ??? You develop new symptoms. ??? You develop excessive weakness. Get help right away if: ??? You have shortness of breath or have trouble breathing. ??? You are dizzy or you faint. ??? You are disoriented or confused. ??? You develop signs of dehydration, such as: ??? Dark urine, very little urine, or no urine. ??? Cracked lips. ??? Dry mouth. ??? Sunken eyes. ??? Sleepiness. ??? Weakness. ??? You develop severe pain in your abdomen. ??? You have persistent vomiting or diarrhea. ??? You develop a skin rash. ??? Your symptoms suddenly get worse. Summary ??? A fever is an increase in the body's temperature. It is usually defined as a temperature of 100.4??F (38??C) or higher. Moderate or high fevers can sometimes be a sign of a serious illness or disease. The sweating that may occur with repeated or prolonged fever may also cause dehydration. ??? Pay attention to any changes in your symptoms and contact your health care provider if your symptoms do not improve with treatment. ??? Take over-the counter and prescription medicines only as told by your health care provider. Follow the dosing instructions carefully. ??? If your fever is from an infection that may be contagious, such as cold or flu, you should stayhome from work and public gatherings for at least 24 hours after your fever is gone. Your fever should be gone without the need to use medicines. ??? Get help right away if you develop signs of dehydration, such as dark urine, cracked lips, dry mouth, sunken eyes, sleepiness, or weakness. This information is not intended to replace advice given to you by your health care provider. Make sure you discuss any questions you have with your health care provider. Document Revised: 03/01/2022 Document Reviewed: 03/01/2022 Elsevier Patient Education ?? 2022 [employer]. Physician Emergency department Note * Adalberto Mazariegos MD: PERFORM Event Display: ED Note Physician Authored Date: [id number] LORRAINE CALL :1955 Age:67 years Sex:Male Visit Date:05/06/2023 Primary Care Physician: AKANKSHA GIFFORD APRN Basic Information Time Seen: Adalberto Mazariegos MD / 05/06/2023 16:19 Chief Complaint Started feeling dizzy since yesterday, had ??multiple falls yesterday and this AM. Febrile, over 103, which came down with Tylenol last dose 4hrs ago. Difficulty ambulating due to increased weakness. History Of Present Illness: Patient states that he has been feeling dizzy since yesterday. ??When he says dizzy he??states lightheaded. ??He states he has a headache and??has achiness all over his body. ??He??notes the fever but denies runny nose cough shortness of breath??denies chest pain denies any neck pain??denies nauseavomiting diarrhea dysuria or other problems. ??He also notes no rash??recent tick bites recent travel or sick contacts. ??He states the lights do not bother his eyes??and has no visual changes arm orleg weakness or numbness Review of Systems: Review of systems negative other than that stated above Physical Exam Vitals & Measurements T:??37.2?C ??(Oral)?? HR:??76??(Monitored)?? RR:??22?? BP:??103/60?? SpO2:??94%?? HT:??165.000??cm?? WT:??97.50??kg?? BMI:??36.000?? O2 Therapy:??Room air?? General: Alert and oriented, well nourished, no acute distress. Eye: PERRL, EOMI, normal conjunctiva. HENT: Normocephalic,??normal hearing, moist oral mucosa, no scleral icterus, . Neck: Supple, non-tender, no carotid bruits, no JVD, no lymphadenopathy. No rigidity Lungs: Clear to auscultation and percussion, non-labored respiration. Heart: Normal rate, regular rhythm, no murmur, gallop or edema. Abdomen: Soft, non-tender, non-distended, normal bowel sounds, no masses. Musculoskeletal: Normal range of motion and strength, no tenderness or swelling. Skin: Skin is warm, dry and appropriate for ethnicity, no rashes or lesions. Neurologic: Awake, alert and oriented X4, CN II-XII intact. ??No nystagmus papilledema??and with head maneuvering??I cannot elicit any??dizziness??complaints from the patient. ??5 out of 5 strength times all 4 extremities. ??No facial droop or confusion Psychiatric: Cooperative, appropriate mood and affect. Procedure No Qualifying Data Reexamination/Reevaluation Patient given Tylenol Toradol and IV fluids. ??After which she was able to get up and states he no longer feels achy. ??He states he no longer feels??dizzy and feels better. ??There is no sign of??CVA. ??Also no signs of vertigo??or??meningismus.?? Blood cultures were taken. ??I do feel that this certainly could be viral in origin??as his LFTs are slightly elevated.?? As he is hemodynamically stable??feeling better??that he be discharged at this time. ??He will use Toradol??given in a limitedprescription for pain and fever. ??Stay hydrated. ??Rest. ??Follow-up with leg doctor if not completely better in several days and return to ED for worsening symptoms Assessment/Plan 1.??Fever??R50.9 Orders: Toradol, 10 mg = 1 tab, Oral, Tab, every 6 hr for 5 days, PRN pain, First Dose: 05/06/23 19:53:00 EDT, Stop Date: 05/11/23 19:52:00 EDT, Physician Stop ketorolac 10 mg oral tablet, 10 mg = 1 tab, Oral, every 6 hr, PRN as needed for pain, not to [id number] mg/day and 5 days duration for all dose forms, # 6 cap, 0 Refill(s), Pharmacy: [id number], cm, 05/06/23 17:10:00 EDT, Height/Length Dosing, 97.5, kg, 05/06/23 17:10:0... Blood Culture, Periph Bld, Hand L, Stat collect, ST - Stat, 05/06/23 17:00:00 EDT, Once, Nurse collect, Print Label Blood Culture, Periph Bld, Arm R, Stat collect, ST - Stat, 05/06/23 17:00:00 EDT, Once, Nurse collect, Print Label Discharge Patient, 05/06/23 19:51:00 EDT Lyme Disease (Borrelia Burgdorferi Abs), Blood, Stat, 05/06/23 17:00:00 EDT, Once, Nurse collect Patient Education Fever, Adult Medication Reconciliation New Prescription ketorolac (ketorolac 10 mg oral tablet)1 tab Oral (given by mouth) every 6 hours as needed as needed for pain. not to exceed 40 mg/day and 5 days duration for all dose forms. Refills: 0. ?? Unchanged aspirin (aspirin 81 mg oral capsule)1 Capsules every 24 hours. ?? gabapentin (gabapentin 100 mg oral capsule)2 Capsules 2 times a day. ?? multivitamin (multivitamin adult, oral tablet)1 tab every day. ?? nitroglycerin (Nitrostat 0.3 mg sublingual tablet)1 tab every 5 minutes. ?? simvastatin (simvastatin 20 mg oral tablet)1 tab every evening. ?? tamsulosin (tamsulosin 0.4 mg oral capsule)1 Capsules every day. ?? traMADol (traMADol 50 mg oral tablet)1 tab every 8 hours. Problem List/Past Medical History Ongoing No qualifying data Historical No qualifying data Medication Administration Given Sodium Chloride 0.9%, 1000 mL, IV Bolus acetaminophen, 1000 mg, IV Piggyback Toradol, 15 mg, IV Push Allergies No Known Allergies Social History Alcohol Never Electronic Cigarette/Vaping Electronic Cigarette Use: Never. Tobacco Never tobacco user Tobacco Use:. Diagnostic Results XR Chest 1 View 05/06/2023 18:20 EDT XR Chest 1 View ?? 05/06/23 17:22:11 PROCEDURE INFORMATION: Exam: XR Chest Exam date and time: 05/06/2023 5:22 PM Age: 67 years old Clinical indication: Other: Chest pain ?? TECHNIQUE: Imaging protocol: Radiologic exam of the chest. Views: 1 view. ?? COMPARISON: No relevant prior studies available. ?? FINDINGS: Lungs: No focal lung consolidation. Pleural spaces: No pleural effusion or pneumothorax. Heart/Mediastinum: No significant cardiac enlargement. Bones/joints: Skeletal degeneration. ?? IMPRESSION: No acute findings. ? THIS DOCUMENT HAS BEEN ELECTRONICALLY SIGNED BY ADRIANA VELAZQUEZ MD on 05/06/2023 06:19 PM ?? Signed By: Adriana Velazquez MD ECG Sinus tachycardia at 100 Diagnostic Study Interpretation: Chest x-ray negative for any acute process Lab Results CBC and Differential?? LATEST RESULTS?? WBC?? 05/06/23 17:01?? 6.1?? RBC?? 05/06/23 17:01?? 5.46?? Hgb?? 05/06/23 17:01?? 16.6?? Hct?? 05/06/23 17:01?? 48.1?? MCV?? 05/06/23 17:01?? 88.1?? MCH?? 05/06/23 17:01?? 30.4?? MCHC?? 05/06/23 17:01?? 34.5?? RDW-CV?? 05/06/23 17:01?? 13.0?? Platelets?? 05/06/23 17:01?? 152?? MPV?? 05/06/23 17:01?? 10.2?? Segs Man?? 05/06/23 17:01?? 90?? Lymph Man?? 05/06/23 17:01?? 5.0 ??Low?? [place] Man?? 05/06/23 17:01?? 1.0 ??Low?? Eos Man?? 05/06/23 17:01?? 0.00?? Baso Man?? 05/06/23 17:01?? 0.0?? Band Man?? 05/06/23 17:01?? 3?? Myelo Man?? 05/06/23 17:01?? 1?? Abs Neut Man?? 05/06/23 17:01?? 5.7?? Abs Lymph Man?? 05/06/23 17:01?? 0.3 ??Low?? Abs [place] Man?? 05/06/23 17:01?? 0.1?? Abs Eos Man?? 05/06/23 17:01?? 0.0?? Abs Baso Man?? 05/06/23 17:01?? 0.0?? RBC Morph?? 05/06/23 17:01?? Normal?? Plt Estimation?? 05/06/23 17:01?? Normal?? Slide Review?? 05/06/23 17:01?? Man Diff? Miscellaneous Hematology?? LATEST RESULTS?? ESR, Westergren?? 05/06/23 17:01?? 14? Routine Chemistry?? LATEST RESULTS?? Sodium Level?? 05/06/23 17:01?? 132 ??Low?? Potassium Level?? 05/06/23 17:01?? 3.7?? Chloride Level?? 05/06/23 17:01?? 100?? CO2?? 05/06/23 17:01?? 20 ??Low?? Alk Phos?? 05/06/23 17:01?? 48?? AST?? 05/06/23 17:01?? 50 ??High?? ALT?? 05/06/23 17:01?? 66 ??High?? BUN?? 05/06/23 17:01?? 21?? Glucose Level?? 05/06/23 17:01?? 124 ??High?? Creatinine Level?? 05/06/23 17:01?? 1.18?? BUN/Creat Ratio?? 05/06/23 17:01?? 17.8?? eGFR CKD-EPI?? 05/06/23 17:01?? 67?? Calcium Level?? 05/06/23 17:01?? 9.2?? Protein Total?? 05/06/23 17:01?? 7.7?? Albumin Level?? 05/06/23 17:01?? 4.4?? Globulin?? 05/06/23 17:01?? 3.3?? A/G Ratio?? 05/06/23 17:01?? 1.3?? Bilirubin Total?? 05/06/23 17:01?? 0.7?? Anion Gap?? 05/06/23 17:01?? 12.0?? Lactic Acid Lvl?? 05/06/23 17:01?? 1.7?? Magnesium Level?? 05/06/23 17:01?? 1.9?? Osmolality?? 05/06/23 17:01?? 269 ??Low?? CRP?? 05/06/23 17:01?? 79.8 ??High? UA Macroscopic?? LATEST RESULTS?? Urine Srce?? 05/06/23 19:05?? Clean Catch?? UA Color?? 05/06/23 19:05?? Yellow?? UA Appear?? 05/06/23 19:05?? Clear?? UA Glucose?? 05/06/23 19:05?? Negative?? UA Bili?? 05/06/23 19:05?? Negative?? UA Ketones?? 05/06/23 19:05?? Trace Abnormal?? UA Spec Grav?? 05/06/23 19:05?? 1.025?? UA Blood?? 05/06/23 19:05?? Small Abnormal?? UA pH?? 05/06/23 19:05?? 5.00?? UA Protein?? 05/06/23 19:05?? 30 Abnormal?? UA Urobilinogen?? 05/06/23 19:05?? 0.2?? UA Nitrite?? 05/06/23 19:05?? Negative?? UA Leuk Est?? 05/06/23 19:05?? Negative?? UA Culture Ind?.?? 05/06/23 19:05?? No? UA Microscopic?? LATEST RESULTS?? UA WBC?? 05/06/23 19:05?? None Seen?? UA RBC?? 05/06/23 19:05?? 0-3?? UA Bacteria?? 05/06/23 19:05?? None Seen? Electronically Signed on 05/06/23 08:01 PM Adalberto Mazariegos MD Emergency department Discharge instructions * Adalberto Mazariegos MD: PERFORM Event Display: ED Discharge Information Authored Date: [id number] LORRAINE CALL :1955 Age:67 years Sex:Male Visit Date:05/06/2023 Primary Care Physician: AKANKSHA GIFFORD APRN Discharge Instructions We would like to thank you for allowing us to assist you with your healthcare needs. The following includes patient education materials and information regarding your injury/illness. Diagnosis from Today's Visit Fever Discharge Vitals Temperature??(Oral) 99.0 ??F (37.2 ??C) Heart Rate??(Monitored) 76 Respiratory Rate?? 22 Blood Pressure?? 103/60?? Height?? 64.96 in (165.000 cm) Weight?? 214.99 lb (97.50 kg) BMI?? 36.000 Allergies No Known Allergies What to Do Next Instructions from Your Care Team Toradol??as prescribed for fever??and/or pain.?? Stay hydrated. ??Follow-up with regular doctor??within several days for lack of improvement and return to ED for worsening symptoms You were treated today on an emergency basis; it may be garcia to contact your primary care provider to notify them of your visit today. You may have been referred to your regular doctor or a specialist, please follow up as instructed. If your condition worsens or you can't get in to see the doctor, contact the Emergency Department. Medications What How Much When Instructions Next Dose New ketorolac (ketorolac 10 mg oral tablet) 1 tab Oral (given by mouth) Every 6 hours as needed for as needed for pain not to exceed 40 mg/ day and 5 days duration for all dose forms ?? Pickup at [facility] Unchanged aspirin (aspirin 81 mg oral capsule) 1 Capsules Every 24 hours Unchanged gabapentin (gabapentin 100 mg oral capsule) 2 Capsules 2 times a day Unchanged multivitamin (multivitamin adult, oral tablet) 1 tab Every day Unchanged nitroglycerin (Nitrostat 0.3 mg sublingual tablet) 1 tab Every 5 minutes Unchanged simvastatin (simvastatin 20 mg oral tablet) 1 tab Every evening Unchanged tamsulosin (tamsulosin 0.4 mg oral capsule) 1 Capsules Every day Unchanged traMADol (traMADol 50 mg oral tablet) 1 tab Every 8 hours Pharmacy Information [facility]: [address] [facility] [place] [id number] [phone] Education Materials Fever, Adult A fever is an increase in the body's temperature. It is usually defined as a temperature of 100.4??F (38??C) or higher. Brief mild or moderate fevers generally have no long-term effects, and they often do not need treatment. Moderate or high fevers may make you feel uncomfortable and can sometimes be a sign of a serious illness or disease. The sweating that may occur with repeated or prolonged fever may also cause a loss of fluid in the body (dehydration). Fever is confirmed by taking a temperature with a thermometer. A measured temperature can vary with: ? Age. ? Time of day. ? Where in the body you take the temperature. Readings may vary if you place the thermometer: ? In the mouth (oral). ? In the rectum (rectal). ? In the ear (tympanic). ? Under the arm (axillary). ? On the forehead (temporal). Follow these instructions at home: Medicines ? Take over-the counter and prescription medicines only as told by your health care provider. Follow the dosing instructions carefully. ? If you were prescribed an antibiotic medicine, take it as told by your health care provider. Do notstop taking the antibiotic even if you start to feel better. General instructions ? Watch your condition for any changes. Let your health care provider know about them. ? Rest as needed. ? Drink enough fluid to keep your urine pale yellow. This helps to prevent dehydration. ? Sponge yourself or bathe with room-temperature water to help reduce your body temperature as needed. Do not use ice water. ? Do not use too many blankets or wear clothes that are too heavy. ? If your fever may be caused by an infection that spreads from person to person (is contagious), such as a cold or the flu, you should stay home from work and public gatherings for at least 24 hours after your fever is gone. Your fever should be gone without the need to use medicines. Contact a health care provider if: ? You vomit. ? You cannot eat or drink without vomiting. ? You have diarrhea. ? You have pain when you urinate. ? Your symptoms do not improve with treatment. ? You develop new symptoms. ? You develop excessive weakness. Get help right away if: ? You have shortness of breath or have trouble breathing. ? You are dizzy or you faint. ? You are disoriented or confused. ? You develop signs of dehydration, such as: ? Dark urine, very little urine, or no urine. ? Cracked lips. ? Dry mouth. ? Sunken eyes. ? Sleepiness. ? Weakness. ? You develop severe pain in your abdomen. ? You have persistent vomiting or diarrhea. ? You develop a skin rash. ? Your symptoms suddenly get worse. Summary ? A fever is an increase in the body's temperature. It is usually defined as a temperature of 100.4??F (38??C) or higher. Moderate or high fevers can sometimes be a sign of a serious illness or disease. The sweating that may occur with repeated or prolonged fever may also cause dehydration. ? Pay attention to any changes in your symptoms and contact your health care provider if your symptoms do not improve with treatment. ? Take over-the counter and prescription medicines only as told by your health care provider. Follow the dosing instructions carefully. ? If your fever is from an infection that may be contagious, such as cold or flu, you should stay home from work and public gatherings for at least 24 hours after your fever is gone. Your fever should be gone without the need to use medicines. ? Get help right away if you develop signs of dehydration, such as dark urine, cracked lips, dry mouth, sunken eyes, sleepiness, or weakness. This information is not intended to replace advice given to you by your health care provider. Make sure you discuss any questions you have with your health care provider. Document Revised: 03/01/2022 Document Reviewed: 03/01/2022 Elsevier Patient Education ?? 2022 [employer] Tests Performed Radiology XR Chest 1 View 05/06/2023 18:20 EDT Medications and Immunizations Administered Given Sodium Chloride 0.9%, 1000 mL, IV Bolus acetaminophen, 1000 mg, IV Piggyback Toradol, 15 mg, IV Push Lab Test Name Test Result Date/Time WBC 6.1 K/mcL 05/06/2023 17:01 EDT RBC 5.46 Million/mcL 05/06/2023 17:01 EDT Hgb 16.6 g/dL 05/06/2023 17:01 EDT Hct 48.1 % 05/06/2023 17:01 EDT MCV 88.1 fL 05/06/2023 17:01 EDT MCH 30.4 pg 05/06/2023 17:01 EDT MCHC 34.5 g/dL 05/06/2023 17:01 EDT RDW-CV 13.0 % 05/06/2023 17:01 EDT Platelets 152 K/mcL 05/06/2023 17:01 EDT MPV 10.2 fL 05/06/2023 17:01 EDT Segs Man 90 05/06/2023 17:01 EDT Lymph Man 5.0 % 05/06/2023 17:01 EDT [place] Man 1.0 % 05/06/2023 17:01 EDT Eos Man 0.00 % 05/06/2023 17:01 EDT Baso Man 0.0 % 05/06/2023 17:01 EDT Band Man 3 % 05/06/2023 17:01 EDT Myelo Man 1 % 05/06/2023 17:01 EDT Abs Neut Man 5.7 K/mcL 05/06/2023 17:01 EDT Abs Lymph Man 0.3 K/mcL 05/06/2023 17:01 EDT Abs [place] Man 0.1 K/mcL 05/06/2023 17:01 EDT Abs Eos Man 0.0 K/mcL 05/06/2023 17:01 EDT Abs Baso Man 0.0 K/mcL 05/06/2023 17:01 EDT RBC Morph Normal 05/06/2023 17:01 EDT Plt Estimation Normal 05/06/2023 17:01 EDT Slide Review Man Diff 05/06/2023 17:01 EDT ESR, Westergren 14 mm/hr 05/06/2023 17:01 EDT Sodium Level 132 mmol/L 05/06/2023 17:01 EDT Potassium Level 3.7 mmol/L 05/06/2023 17:01 EDT Chloride Level 100 mmol/L 05/06/2023 17:01 EDT CO2 20 mmol/L 05/06/2023 17:01 EDT Alk Phos 48 IntlUnit/L 05/06/2023 17:01 EDT AST 50 IntlUnit/L 05/06/2023 17:01 EDT ALT 66 IntlUnit/L 05/06/2023 17:01 EDT BUN 21 mg/dL 05/06/2023 17:01 EDT Glucose Level 124 mg/dL 05/06/2023 17:01 EDT Creatinine Level 1.18 mg/dL 05/06/2023 17:01 EDT BUN/Creat Ratio 17.8 05/06/2023 17:01 EDT eGFR CKD-EPI 67 mL/min/1.73 m2 05/06/2023 17:01 EDT Calcium Level 9.2 mg/dL 05/06/2023 17:01 EDT Protein Total 7.7 g/dL 05/06/2023 17:01 EDT Albumin Level 4.4 g/dL 05/06/2023 17:01 EDT Globulin 3.3 05/06/2023 17:01 EDT A/G Ratio 1.3 05/06/2023 17:01 EDT Bilirubin Total 0.7 mg/dL 05/06/2023 17:01 EDT Anion Gap 12.0 05/06/2023 17:01 EDT Lactic Acid Lvl 1.7 mmol/L 05/06/2023 17:01 EDT Magnesium Level 1.9 mg/dL 05/06/2023 17:01 EDT Osmolality 269 mOsm/kg 05/06/2023 17:01 EDT CRP 79.8 mg/L 05/06/2023 17:01 EDT Urine Srce Clean Catch 05/06/2023 19:05 EDT UA Color YELLOW. 05/06/2023 19:05 EDT UA Appear CLEAR. 05/06/2023 19:05 EDT UA Glucose NEGATIVE 05/06/2023 19:05 EDT UA Bili NEGATIVE 05/06/2023 19:05 EDT UA Ketones TRACE 05/06/2023 19:05 EDT UA Spec Grav 1.025 05/06/2023 19:05 EDT UA Blood SMALL Clinitek 05/06/2023 19:05 EDT UA pH 5.00 05/06/2023 19:05 EDT UA Protein 30 05/06/2023 19:05 EDT UA Urobilinogen 0.2 05/06/2023 19:05 EDT UA Nitrite NEGATIVE 05/06/2023 19:05 EDT UA Leuk Est NEGATIVE 05/06/2023 19:05 EDT UA Culture Ind?. No 05/06/2023 19:05 EDT UA WBC None Seen 05/06/2023 19:05 EDT UA RBC 0-3 05/06/2023 19:05 EDT UA Bacteria None Seen 05/06/2023 19:05 EDT Patient/Hand Coremaker Signature Patient Name:LORRAINE CALL I have received this information and my questions have been answered. Patient/Hand Coremaker Name: Patient/Hand Coremaker Signature: Relationship to Patient: Witness Name/Signature: Date: Electronically Signed on: 05/06/2023 19:55 EDTSigned by:STEPHANIE Patient Care team information Care Team Personnel Name: AKANKSHA GIFFORD APRN Position: No Access Member Role: Primary Care Physician Address: Address: [address] [place] [id number] Name: Adalberto Mazariegos MD Position: Physician Member Role: ED Physician Address: Address: [address] [place] [id number] Name: Hillary Vega Position: Nurse Member Role: Registered Nurse
[2023-05-23 16:40] LABS: HCT 33.4 % (40.0-50.0); HGB 10.9 g/dL (13.5-17.5); MCH 29.1 pg (27.0-33.0); MCHC 32.6 % (32.0-36.0); MCV 89 fL (80-95); MPV 12.4 fL (8.0-11.0); Platelet Count 561 10^3/uL (130-400); RBC 3.74 10^6/uL (4.36-5.78); RDW 15.2 % (11.8-14.1); RDW-SD 47.9 fL; WBC 11.52 10^3/uL (4.4-10.8)
[2023-05-23 17:10] LABS: Iron 91 ug/dL (65-175); Total Iron Binding Capacity 288 ug/dL (250-450); Transferrin Sat 32 % (20-55)
[2023-05-23 17:28] LABS: Absolute Lymphocyte Count 3.57 10^3/uL (1.2-3.4); Absolute Monocyte Count 1.27 10^3/uL (0.1-0.8); Absolute Neutrophil Count 6.57 10^3/uL (1.2-6.7); Bands % 1
[2023-05-23 17:29] LABS: Diff Comment Manual Differential; Myelocytes % 1; Polychromasia Present
[2023-05-23 17:42] LABS: ALT 150 U/L (16-63); AST 47 U/L (15-37); Albumin 2.9 g/dL (3.4-5.0); Alkaline Phosphatase 105 U/L (46-116); Anion Gap 8.2 mmol/L (3-11); BUN 37 mg/dL (7-18); Bilirubin, Total 0.2 mg/dL (0.2-1.0); CO2 25.8 mmol/L (21.0-32.0); CREATININE 0.8 mg/dL (0.70-1.30); Calcium 8.8 mg/dL (8.5-10.1); Chloride 102 mmol/L (98-107); Glucose 109 mg/dL (74-106); Potassium 5.1 mmol/L (3.5-5.1); Sodium 136 mmol/L (136-145)
[2023-05-23 17:43] LABS: Ferritin 1444 ng/mL (26-388)
== END 2023-05-23 15:33 | disposition home or self-care (01) ==
LOC: NCHCN 15:32
PROVIDERS: PCP Nurse Practitioner Family; Visit Provider Nurse Practitioner Family
DX: D64.9 Anemia, unspecified (principal); R53.1 Weakness; I10 Essential (primary) hypertension; K92.1 Melena; A79.82 Anaplasmosis [A. phagocytophilum]; R39.15 Urgency of urination; R79.89 Other specified abnormal findings of blood chemistry
CPT/HCPCS: 80053; 82728; 83540; 83550; 85025; 87086

== ENCOUNTER 2023-06-07 17:18 | Outpatient (REF) | payer MEDICARE, SELFPAY ==
[2023-06-07 16:36] LABS: Abs Immature Grans 0.02 10^3/uL (0.0-0.06); Absolute Basophil Count 0.03 10^3/uL (0.0-0.2); Absolute Eosinophil Count 0.19 10^3/uL (0.0-0.7); Absolute Lymphocyte Count 1.96 10^3/uL (1.2-3.4); Absolute Neutrophil Count 4.09 10^3/uL (1.2-6.7); Basophils % 0.4; Eosinophils % 2.8; HCT 37.9 % (40.0-50.0); HGB 12.5 g/dL (13.5-17.5); Immature Grans % 0.3; Lymphocytes % 28.4; MCH 30.3 pg (27.0-33.0); MCV 92 fL (80-95); MPV 10.8 fL (8.0-11.0); Monocytes % 8.7; Neutrophils % 59.4; Platelet Count 257 10^3/uL (130-400); RBC 4.13 10^6/uL (4.36-5.78); RDW 16.7 % (11.8-14.1); RDW-SD 56.7 fL; WBC 6.89 10^3/uL (4.4-10.8)
== END 2023-06-07 17:19 | disposition home or self-care (01) ==
LOC: NCHCN 17:18
PROVIDERS: PCP Nurse Practitioner Family; Visit Provider Nurse Practitioner Family
DX: D64.9 Anemia, unspecified (principal)
CPT/HCPCS: 85025

== ENCOUNTER 2023-07-03 14:37 | Outpatient (REF) | payer MEDICARE, SELFPAY ==
[2023-07-03 14:52] LABS: Abs Immature Grans 0.02 10^3/uL (0.0-0.06); Absolute Basophil Count 0.02 10^3/uL (0.0-0.2); Absolute Eosinophil Count 0.21 10^3/uL (0.0-0.7); Absolute Lymphocyte Count 1.74 10^3/uL (1.2-3.4); Absolute Monocyte Count 0.48 10^3/uL (0.1-0.8); Absolute Neutrophil Count 3.35 10^3/uL (1.2-6.7); Basophils % 0.3; Eosinophils % 3.6; HCT 43.3 % (40.0-50.0); HGB 14.4 g/dL (13.5-17.5); Immature Grans % 0.3; Lymphocytes % 29.9; MCH 29.7 pg (27.0-33.0); MCHC 33.3 % (32.0-36.0); MCV 89 fL (80-95); MPV 10.6 fL (8.0-11.0); Monocytes % 8.2; Neutrophils % 57.7; Platelet Count 210 10^3/uL (130-400); RBC 4.85 10^6/uL (4.36-5.78); RDW 13.2 % (11.8-14.1); RDW-SD 43.6 fL; WBC 5.82 10^3/uL (4.4-10.8)
[2023-07-03 15:08] LABS: ALT 55 U/L (16-63); AST 27 U/L (15-37); Albumin 4.2 g/dL (3.4-5.0); Alkaline Phosphatase 63 U/L (46-116); Anion Gap 10.9 mmol/L (3-11); BUN 21 mg/dL (7-18); Bilirubin, Total 0.5 mg/dL (0.2-1.0); CO2 24.1 mmol/L (21.0-32.0); Calcium 9.4 mg/dL (8.5-10.1); Chloride 102 mmol/L (98-107); Estimated GFR 81.47 (mL/min/1.73m2); Glucose 104 mg/dL (74-106); Sodium 137 mmol/L (136-145); Total Protein 7.2 g/dL (6.4-8.2)
== END 2023-07-03 14:38 | disposition home or self-care (01) ==
LOC: NCHCN 14:37
PROVIDERS: PCP Nurse Practitioner Family; Visit Provider Nurse Practitioner Family
DX: D64.9 Anemia, unspecified (principal); R51.9 Headache, unspecified; R25.1 Tremor, unspecified; R74.01 Elevation of levels of liver transaminase levels; I25.10 Atherosclerotic heart disease of native coronary artery without angina pectoris; E66.9 Obesity, unspecified
CPT/HCPCS: 80053; 85025

== ENCOUNTER 2023-08-12 15:51 | Outpatient (REF) | payer MEDICARE, SELFPAY ==
[2023-08-12 16:53] LABS: Abs Immature Grans 0.02 10^3/uL (0.0-0.06); Absolute Basophil Count 0.03 10^3/uL (0.0-0.2); Absolute Eosinophil Count 0.15 10^3/uL (0.0-0.7); Absolute Lymphocyte Count 1.44 10^3/uL (1.2-3.4); Absolute Monocyte Count 0.54 10^3/uL (0.1-0.8); Absolute Neutrophil Count 3.74 10^3/uL (1.2-6.7); Basophils % 0.5; Eosinophils % 2.5; HCT 48.2 % (40.0-50.0); HGB 16.4 g/dL (13.5-17.5); Immature Grans % 0.3; Lymphocytes % 24.3; MCH 29.3 pg (27.0-33.0); MCV 86 fL (80-95); MPV 11.5 fL (8.0-11.0); Monocytes % 9.1; Neutrophils % 63.3; Platelet Count 216 10^3/uL (130-400); RBC 5.59 10^6/uL (4.36-5.78); RDW 12.6 % (11.8-14.1); RDW-SD 39.5 fL; WBC 5.92 10^3/uL (4.4-10.8)
[2023-08-14 12:51] LABS: Lyme Ab w Rflx to Lyme Confirm Negative (Negative)
[2023-08-15 14:53] LABS: Anaplasma phagocytophilum Negative (Negative); B. miyamotoi PCR Negative (Negative); Babesia divergens/MO-1 Negative (Negative); Babesia duncani Negative (Negative); Babesia microti Negative (Negative); Ehrlichia chaffeensis Negative (Negative); Ehrlichia ewingii/canis Negative (Negative); Ehrlichia muris eauclairensis Negative (Negative)
== END 2023-08-12 15:52 | disposition home or self-care (01) ==
LOC: LBN 15:51
PROVIDERS: PCP Nurse Practitioner Family; Visit Provider Physician Assistant
DX: R51.9 Headache, unspecified (principal); R53.1 Weakness; A77.49 Other ehrlichiosis
CPT/HCPCS: 87798; 85025; 86618

== ENCOUNTER 2023-11-23 09:21 | Outpatient (CLI) | payer MEDICARE, SELFPAY ==
[2023-11-23 09:35] VITALS: BP 148/83; PULSE 60; RESP 20; TEMP 36.7; O2SAT 96
--- NOTE | 2023-11-23 10:37 | DI.RAD_ITS ---
Exam(s) XR PAIN CLINIC LUMBAR SP 2V EXAM: XR PAIN CLINIC LUMBAR SP 2V CLINICAL HISTORY: Dx: Lumbar Spondylosis TECHNIQUE: 2D and realtime digital imaging was performed. Radiologist not present. CONTRAST MATERIAL: None. COMPARISON: No exams were available for comparison FINDINGS: Fluoroscopy was provided for pain management therapy. Please refer to procedure report or details. Radiation Exposure Index: Ka,r=20.57 mGy IMPRESSION: As above. RADIATION DOSE DELIVERED:
--- NOTE | 2023-11-23 10:41 | PDOC.PAIN_ITS ---
Date of service: 11/23/23 Time of Service: 10:41 Pain Managment Procedure Note Procedure Note Procedure Note: PROCEDURE NOTE BILATERAL LUMBAR RADIOFREQUENCY ABLATION Date of Service: November 23, 2023 Patient:Manan Jackson? Provider:? Manan Killian DO, MPH Manan Steele [facility] Lumbar Radiofrequency Ablation with the AvGMIs Machine.? 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 This pain has mostly returned. PROCEDURE: Radiofrequency Ablation of medial branches - bilateral L3, L4, L5 and lateral branches of bilateral S1. Sreekanthwas interviewed and the medical record was reviewed.? There were no medical, pharmacologic, radiographic or other structural contraindications to attempting fluoroscopically guided BILATERAL Lumbar Radiofrequency Ablation.?Risks and expected side effects as well as potential benefit of the procedure were reviewed with Manan, and the patient's voiced concerns were addressed.? The printed consent form was signed.? Standard time-out procedure was performed. Manan was brought into the fluoroscopy suite and positioned into the prone position on the fluoroscopy table and allowed to adjust to a position of comfort. A grounding pad was placed on the left abdomen. The sterile field was prepared using chlorhexidine preparation of the skin and sterile draping. Local anesthesia superficial and deep was provided by local infiltration of 2% lidocaine. A 17g 100 mm radiofrequency introducer needle was placed to the planned anatomic targets guided with intermittent fluoroscopy with a perpendicular approach to terminally place at the junction of the superior articular process and the transverse process of the bilateral L4, L5, the base of the sacral ala on the bilateral for the L5 medial branch nerve and the area between base of the sacral ala to the S1 foramen bilaterally. The stylets were removed and radiofrequency probes with a 4mm active tip were then inserted. Needle tip position of the probes was verified in the AP, oblique, and lateral views. At each site, the medial branch nerve was stimulated at 2 Hz to a maximum 1-2 volts determined to finalize safe needle and electrode placement. The patient was awake and responsive during this portion of the procedure. Each target was anesthetized with 1-2 mL of 2 % Lidocaine for anesthesia for lesioning and then each target was lesioned at 80 degrees Celsius for 2 minutes and 30 seconds. Tissue impedances were noted to be between 250 and 500 Ohms. There was no unusual discomfort expressed by Manan. I then injected 1/4 cc of Depomedrol (40 mg/cc) followed by 1 cc of 0.5% Bupivacaine at each segmental sensory nerve. The needles were withdrawn without difficulty and bandages placed over the needle pl acement sites, the patient was observed and was without hemodynamic, neurologic, or allergic reactions. Fluoroscopic images were digitally archived. POST PROCEDURE EVALUATION: IMPRESSION: 1. Summary of procedure. Medication given is documented in the MAR. 2. Follow up plan: [facility]an to contact [facility] needed.?This procedure may be repeated if the patient achieves at least 50% improvement in pain/function for at least 6 months. 3. Estimated Blood Loss: <5 mls 4. Fluoroscopy time: Documented in the EMR. Follow up plans and appointments were discussed with the Manan. Post procedure instruction was given as documented in nursing documentation and having met discharge criteria, Manan was [facility] from the [facility]. COMMENTS: No apparent complications. Post-procedure pain: VAS= 0/10. I personally completed the entire procedure. MANAN KILLIAN DO, MPH ABPM&R - Subspecialty board certification in Pain Medicine [facility]
[2023-11-23] MEDS: Bupivacaine 0.5% Pres-Free 10 ML VIAL IJ (10:44)
[2023-11-23] MEDS: methylPREDNISolone ACETATE 40 MG/ML VIAL IJ (10:45)
[2023-11-23] MEDS: Lidocaine 2% Pres-Free 5 ML VIAL IJ (10:45)
[2023-11-23] MEDS: Midazolam 2 MG/2 ML VIAL IVP (10:45)
[2023-11-23] MEDS: fentaNYL 100 MCG/2 ML VIAL IVP (10:46)
[2023-11-23 10:48] VITALS: BP 136/86; PULSE 64; RESP 17; O2SAT 95
== END 2023-11-23 09:22 | disposition home or self-care (01) ==
LOC: PC 09:23
PROVIDERS: PCP Nurse Practitioner Family; Visit Provider Preventive Medicine Occupational Medicine
DX: M54.50 Low back pain, unspecified (principal); M47.817 Spondylosis without myelopathy or radiculopathy, lumbosacral region
CPT/HCPCS: 00123; 64635; 64636; 72100; J0665; J1030; J2003; J2250; J3010

== ENCOUNTER 2024-06-05 19:58 | Outpatient (REF) | payer MEDICARE, SELFPAY ==
[2024-06-05 18:26] LABS: Calculated LDL 94 mg/dL (<100); Cholesterol 174 mg/dL (<200); HDL Cholesterol 38 mg/dL (40-60); Triglyceride 213 mg/dL (<150)
== END 2024-06-05 19:59 | disposition home or self-care (01) ==
LOC: NCHCN 19:58
PROVIDERS: PCP Nurse Practitioner Family; Visit Provider Family Medicine
DX: E78.5 Hyperlipidemia, unspecified (principal)
CPT/HCPCS: 80061

== ENCOUNTER 2024-06-19 07:19 | Outpatient (CLI) | payer MEDICARE, SELFPAY ==
[2024-06-19] VITALS (14 sets, daily range): BP systolic 123–139; BP diastolic 86–97; PULSE 60–63; RESP 17–26; TEMP 36.6; O2SAT 92–95
--- NOTE | 2024-06-19 06:00 | DI.RAD_ITS ---
Exam(s) XR PAIN CLINIC LUMBAR SP 2V EXAM: XR PAIN CLINIC LUMBAR SP 2V CLINICAL HISTORY: DX: Lumbar spondylosis TECHNIQUE: 2D and realtime digital imaging was performed. Radiologist not present. CONTRAST MATERIAL: None. COMPARISON: No exams were available for comparison FINDINGS: Fluoroscopy was provided for pain management therapy. Please refer to procedure report or details. Radiation Exposure Index: Ka,r=27.59 mGy IMPRESSION: As above. RADIATION DOSE DELIVERED:
[2024-06-19] MEDS: fentaNYL 100 MCG/2 ML VIAL IVP (08:58)
[2024-06-19] MEDS: Midazolam 2 MG/2 ML VIAL IVP (08:58)
[2024-06-19] MEDS: Lactated Ringers 500 ML 80 ML IV (09:10)
[2024-06-19] MEDS: Bupivacaine 0.5% Pres-Free 10 ML VIAL IJ (09:59)
[2024-06-19] MEDS: methylPREDNISolone ACETATE 40 MG/ML VIAL IJ (09:59)
[2024-06-19] MEDS: Lidocaine 2% Multi-Dose 20 ML VIAL IJ (10:00)
[2024-06-19] MEDS: Nerve Block Tray 1 EACH MC (10:23)
--- NOTE | 2024-06-19 10:53 | PDOC.PAIN ---
Date of service: 06/19/24 Time of Service: 10:53 Pain Managment Procedure Note Procedure Note Procedure Note: PROCEDURE NOTE BILATERAL LUMBAR RADIOFREQUENCY ABLATION Date of Service: June 19, 2024 Patient:? Manan Steele? Provider:? Manan Killian DO, MPH Manan Steele [facility] Bilateral Lumbar Radiofrequency Ablation with the AvPrimrose Therapeuticss Machine.? Pre Operative Diagnosis: Lumbosacral Spondylosis without Myelopathy Post Operative Diagnosis: Same Pre procedure pain; VAS= 7/10 Comments: He had >6 months of >50% pain improvement with his last RFA. The pain has mostly returned over the past couple weeks. PROCEDURE: Radiofrequency Ablation of medial branches - bilateral L3, L4, L5 and lateral branches of bilateral S1. Sreekanthwas interviewed and the medical record was reviewed.? There were no medical, pharmacologic, radiographic or other structural contraindications to attempting fluoroscopically guided BILATERAL Lumbar Radiofrequency Ablation.?Risks and expected side effects as well as potential benefit of the procedure were reviewed with Manan, and the patient's voiced concerns were addressed.? The printed consent form was signed.? Standard time-out procedure was performed. Manan was brought into the fluoroscopy suite and positioned into the prone position on the fluoroscopy table and allowed to adjust to a position of comfort. A grounding pad was placed on the left abdomen. The sterile field was prepared using chlorhexidine preparation of the skin and sterile draping. Local anesthesia superficial and deep was provided by local infiltration of 2% lidocaine. A 17g 100 mm radiofrequency introducer needle was placed to the planned anatomic targets guided with intermittent fluoroscopy with a perpendicular approach to terminally place at the junction of the superior articular process and the transverse process of the bilateral L4, L5, the base of the sacral ala on the bilateral for the L5 medial branch nerve and the area between base of the sacral ala to the S1 foramen bilaterally. The stylets were removed and radiofrequency probes with a 4mm active tip were then inserted. Needle tip position of the probes was verified in the AP, oblique, and lateral views. At each site, the medial branch nerve was stimulated at 2 Hz to a maximum 1-2 volts determined to finalize safe needle and electrode placement. The patient was awake and responsive during this portion of the procedure. Each target was anesthetized with 1-2 mL of 2 % Lidocaine for anesthesia for lesioning and then each target was lesioned at 80 degrees Celsius for 2 minutes and 30 seconds. Tissue impedances were noted to be between 250 and 500 Ohms. Next, I injected 1/4 cc of Depomedrol (40 mg/cc) at each segmental sensory nerve and this was followed with 1 cc of 0.5% Bupivacaine. There was no unusual discomfort expressed by Manan. The needles were withdrawn without difficulty and bandages placed over the needle placement sites, the patient was observed and was without hemodynamic, neurologic, or allergic reactions. Fluoroscopic images were digitally archived. POST PROCEDURE EVALUATION: IMPRESSION: 1. Summary of procedure. Medication given is documented in the MAR. 2. Follow up plan: Manan to contact [facility] needed.?This procedure may be repeated if the patient achieves at least 50% improvement in pain/function for at least 6 months. 3. Estimated Blood Loss: <5 mls 4. Fluoroscopy time: Documented in the EMR. Follow up plans and appointments were discussed with the Manan. Post procedure instruction was given as documented in nursing documentation and having met discharge criteria, Manan was [facility] from the [facility]. COMMENTS: No apparent complications. Post-procedure pain: VAS= 2/10. I personally completed the entire procedure. MANAN KILLIAN DO, MPH ABPM&R - Subspecialty board certification in Pain Medicine [facility]
== END 2024-06-19 07:20 | disposition home or self-care (01) ==
LOC: PC 07:21
PROVIDERS: PCP Family Medicine; Visit Provider Preventive Medicine Occupational Medicine
DX: M54.50 Low back pain, unspecified (principal); M47.817 Spondylosis without myelopathy or radiculopathy, lumbosacral region
CPT/HCPCS: 64635; 64636; 72100; J0665; J1010; J2003; J2250; J3010

== ENCOUNTER 2024-11-05 20:20 | Outpatient (REF) | payer MEDICARE, SELFPAY ==
[2024-11-05 16:24] LABS: ALT 35 U/L (16-63); AST 33 U/L (15-37); Albumin 4.5 g/dL (3.4-5.0); Alkaline Phosphatase 67 U/L (46-116); Anion Gap 9.3 mmol/L (3-11); BUN 22 mg/dL (7-18); Bilirubin, Total 0.62 mg/dL (0.2-1.0); CO2 26.7 mmol/L (21.0-32.0); Calcium 9.4 mg/dL (8.5-10.1); Chloride 102 mmol/L (98-107); Estimated GFR 80.47 (mL/min/1.73m2); Glucose 96 mg/dL (74-106); Potassium 4.5 mmol/L (3.5-5.1); Sodium 138 mmol/L (136-145); Total Protein 7.5 g/dL (6.4-8.2)
[2024-11-05 16:29] LABS: Hemoglobin A1C 5.4 % (<5.7)
== END 2024-11-05 20:21 | disposition home or self-care (01) ==
LOC: NCHCN 20:20
PROVIDERS: PCP Family Medicine; Visit Provider Family Medicine
DX: R73.03 Prediabetes (principal)
CPT/HCPCS: 80053; 83036

== ENCOUNTER 2024-12-10 16:08 | Outpatient (REF) | payer MEDICARE, SELFPAY | END 2024-12-10 16:09 | disposition home or self-care (01) | LOC: NCHCN 16:08 | PROVIDERS: PCP Family Medicine; Visit Provider Family Medicine | DX: L01.09 Other impetigo (principal) | CPT/HCPCS: 87070; 87205 ==

== ENCOUNTER 2024-12-17 15:09 | Outpatient (REF) | payer MEDICARE, SELFPAY ==
[2024-12-17 15:42] LABS: Abs Immature Grans 0.03 10^3/uL (0.0-0.06); Absolute Basophil Count 0.05 10^3/uL (0.0-0.2); Absolute Eosinophil Count 0.97 10^3/uL (0.0-0.7); Absolute Lymphocyte Count 1.81 10^3/uL (1.2-3.4); Absolute Neutrophil Count 3.84 10^3/uL (1.2-6.7); Basophils % 0.6 %; Eosinophils % 12.6 %; HCT 52.4 % (40.0-50.0); HGB 18.1 g/dL (13.5-17.5); Immature Grans % 0.4 %; Lymphocytes % 23.5 %; MCH 30.4 pg (27.0-33.0); MCHC 34.5 % (32.0-36.0); MCV 88 fL (80-95); MPV 11.2 fL (8.0-11.0); Neutrophils % 49.9 %; Platelet Count 234 10^3/uL (130-400); RBC 5.96 10^6/uL (4.36-5.78); RDW 13.6 % (11.8-14.1); RDW-SD 43.9 fL
[2024-12-17 16:56] LABS: ALT 35 U/L (16-63); AST 33 U/L (15-37); Albumin 4.4 g/dL (3.4-5.0); Alkaline Phosphatase 100 U/L (46-116); Anion Gap 9.5 mmol/L (3-11); BUN 16 mg/dL (7-18); Bilirubin, Total 0.42 mg/dL (0.2-1.0); CO2 25.5 mmol/L (21.0-32.0); Calcium 9.5 mg/dL (8.5-10.1); Chloride 104 mmol/L (98-107); Estimated GFR 80.47 (mL/min/1.73m2); Glucose 94 mg/dL (74-106); Potassium 4.7 mmol/L (3.5-5.1); Sodium 139 mmol/L (136-145); Total Protein 7.4 g/dL (6.4-8.2)
== END 2024-12-17 15:10 | disposition home or self-care (01) ==
LOC: NCHCN 15:09
PROVIDERS: PCP Family Medicine; Visit Provider Nurse Practitioner Family
DX: L28.2 Other prurigo (principal)
CPT/HCPCS: 80053; 85025

== ENCOUNTER 2024-12-18 10:39 | Outpatient (REF) | payer MEDICARE, SELFPAY ==
--- NOTE | 2024-12-18 09:10 | SKI_PTH ---
PATIENT: Manan Steele LOC: [facility] U#:[id number] AGE/SX: 69/M ROOM: RE12/18/[address]: Ganga Nieves : 1955 BED: DIS: 12/18/2024 SPEC #: [id number] RECD: 12/18/24 14:29 STATUS: ELIAZAR REJonathan #: [id number] CHINYERE: 12/18/24 09:[address]: Ganga Nieves DEPT: Surgical Specimen RECD BY: Rossy Mata ENTERED: 12/18/24 14:31 SP TYPE: SKI OTHR DR: Courtney Hanna Tissues: 1 - SKIN BIOPSY(SHAVE/PUNCH) Procedures: SKIN LEVEL 4 Comments: [id number]
[2024-12-18 15:56] LABS: Ferritin 228 ng/mL (26-388)
[2024-12-20 11:46] LABS: Erythropoietin 8.8 mIU/mL (2.6 - 18.5)
[2024-12-24 18:43] LABS: JAK2 Result see interpretation
== END 2024-12-18 10:40 | disposition home or self-care (01) ==
LOC: NCHCN 10:39
PROVIDERS: PCP Family Medicine; Visit Provider Family Medicine
DX: D45 Polycythemia vera (principal)
CPT/HCPCS: 82668; 81270; 82728; 88305

== ENCOUNTER 2024-12-31 10:16 | Outpatient (REF) | payer MEDICARE, SELFPAY ==
[2025-01-01 10:42] LABS: BUN 23 mg/dL (7-18); CREATININE 1.4 mg/dL (0.70-1.30); Calcium 9.5 mg/dL (8.5-10.1); Chloride 98 mmol/L (98-107); Estimated GFR 53.74 (mL/min/1.73m2); Glucose 105 mg/dL (74-106); Potassium 3.5 mmol/L (3.5-5.1); Sodium 137 mmol/L (136-145)
== END 2024-12-31 10:17 | disposition home or self-care (01) ==
LOC: NCHCN 10:16
PROVIDERS: PCP Family Medicine; Visit Provider Family Medicine
DX: I10 Essential (primary) hypertension (principal)
CPT/HCPCS: 80048

== ENCOUNTER 2025-01-23 06:53 | Outpatient (CLI) | payer MEDICARE, SELFPAY ==
[2025-01-23] VITALS (17 sets, daily range): BP systolic 134–165; BP diastolic 85–105; PULSE 62–73; RESP 16–30; TEMP 36.7; O2SAT 92–96
--- NOTE | 2025-01-23 06:00 | DI.RAD_ITS ---
Exam(s) XR PAIN CLINIC LUMBAR SP 2V EXAM: XR PAIN CLINIC LUMBAR SP 2V CLINICAL HISTORY: Dx: Lumbar Spondylosis TECHNIQUE: 2D and realtime digital imaging was performed. CONTRAST MATERIAL: Refer to procedure report. COMPARISON: No exams were available for comparison FINDINGS: Fluoroscopy was provided for Dr. Killian during the performance of a lumbar radiofrequency ablation. P lease refer to the procedure report for complete details. Ka,r=36.1 mGy IMPRESSION: RADIATION DOSE DELIVERED: 0.0 0.0 0
[2025-01-23] MEDS: fentaNYL 100 MCG/2 ML VIAL IVP (08:15)
[2025-01-23] MEDS: Midazolam 2 MG/2 ML VIAL IVP (08:15)
[2025-01-23] MEDS: Lactated Ringers 500 ML 80 ML IV (08:29)
[2025-01-23] MEDS: Bupivacaine 0.5% Pres-Free 10 ML VIAL IJ (08:57)
[2025-01-23] MEDS: Lidocaine 2% Multi-Dose 20 ML VIAL IJ (08:57)
[2025-01-23] MEDS: Nerve Block Tray 1 EACH MC (08:58)
[2025-01-23] MEDS: methylPREDNISolone ACETATE 40 MG/ML VIAL IJ (08:58)
--- NOTE | 2025-01-23 09:08 | PDOC.PAIN ---
Date of service: 01/23/25 Time of Service: 09:08 Pain Managment Procedure Note Procedure Note Procedure Note: PROCEDURE NOTE BILATERAL LUMBAR RADIOFREQUENCY ABLATION Date of Service: January 23, 2025 Patient:? Manan Steele? Provider:? Manan Killian DO, MPH Manan Steele [facility] Bilateral Lumbar Radiofrequency Ablation with the AveCullets Machine.? Pre Operative Diagnosis: Lumbosacral Spondylosis without Myelopathy ICD-10 M47.816 Post Operative Diagnosis: Same Pre procedure pain; VAS= 8/10 Comments: >50% improvement in pain for >6 months with his last RFA PROCEDURE: Radiofrequency Ablation of medial branches - bilateral L3, L4, L5 and lateral branches of bilateral S1. aMnan?was interviewed and the medical record was reviewed.? There were no medical, pharmacologic, radiographic or other structural contraindications to attempting fluoroscopically guided BILATERAL Lumbar Radiofrequency Ablation.?Risks and expected side effects as well as potential benefit of the procedure were reviewed with aMnan, and the patient's voiced concerns were addressed.? The printed consent form was signed.? Standard time-out procedure was performed. Manan was brought into the fluoroscopy suite and positioned into the prone position on the fluoroscopy table and allowed to adjust to a position of comfort. A grounding pad was placed on the left abdomen. The sterile field was prepared using chlorhexidine preparation of the skin and sterile draping. Local anesthesia superficial and deep was provided by local infiltration of 2% lidocaine. A 17g 100 mm radiofrequency introducer needle was placed to the planned anatomic targets guided with intermittent fluoroscopy with a perpendicular approach to terminally place at the junction of the superior articular process and the transverse process of the bilateral L4, L5, the base of the sacral ala on the bilateral for the L5 medial branch nerve and the area between base of the sacral ala to the S1 foramen bilaterally. The stylets were removed and radiofrequency probes with a 4mm active tip were then inserted. Needle tip position of the probes was verified in the AP, oblique, and lateral views. At each site, the medial branch nerve was stimulated at 2 Hz to a maximum 1-2 volts determined to finalize safe needle and electrode placement. The patient was awake and responsive during this portion of the procedure. Each target was anesthetized with 1-2 mL of 2 % Lidocaine for anesthesia for lesioning and then each target was lesioned at 80 degrees Celsius for 2 minutes and 30 seconds. Tissue impedances were noted to be between 250 and 500 Ohms. There was no unusual discomfort expressed by Manan. Next, I injected 1/4 cc of Depomedrol (40 mg/cc) followed by 1 cc of 0.5% Bupivacaine at each segmental sensory nerve. The needles were withdrawn without difficulty and bandages placed over the needle placement sites, the patient was observed and was without hemodynamic, neurologic, or allergic reactions. Fluoroscopic images were digitally archived. POST PROCEDURE EVALUATION: IMPRESSION: 1. Summary of procedure. Medication given is documented in the MAR. 2. Follow up plan: Manan to contact [facility] as needed.?This procedure may be repeated if the patient achieves at least 50% improvement in pain/function for at least 6 months. 3. Estimated Blood Loss: <5 mls 4. Fluoroscopy time: Documented in the EMR. Follow up plans and appointments were discussed with the Manan. Post procedure instruction was given as documented in nursing documentation and having met discharge criteria, Manan was [facility] from the [facility]. This advanced procedure uses cooled radiofrequency energy to safely target the sensory nerves responsible for sending pain signals. A radiofrequency generator transmits a small current of Radiofrequency energy through an insulated electrode, or probe, placed within tissue. Ionic heating, produced by the friction of charged molecules, thermally deactivates the nerves responsible for sending pain signals to the brain. Radiofrequency energy heats and cools the tissue at the site of pain. Unlike other Radiofrequency procedures, Coolief circulates water through the device while heating nervous tissue to create a larger treatment area, increasing the opportunity to help with pain. This combination targets the pain-transmitting nerves without excessive heating, leading to pain relief. COMMENTS: No apparent complications. Post-procedure pain: VAS= 4/10. I personally completed the entire procedure. MANAN KILLIAN DO, MPH ABPM&R - Subspecialty board certification in Pain Medicine [facility] Coding Conscious Sedation used for procedure: Yes CPT Codes: Single Facet Joint, Lumbar/Sacral cool - 43671J (21747Y60~G) Single Facet Joint, Lumbar/Sacral cool each add'l - 39586V (69831A68~G) Additional Codes: Date of Service (99167) Date of service: 01/23/25
== END 2025-01-23 06:54 | disposition home or self-care (01) ==
LOC: PC 06:54
PROVIDERS: PCP Family Medicine; Visit Provider Preventive Medicine Occupational Medicine
DX: M47.816 Spondylosis without myelopathy or radiculopathy, lumbar region (principal); M54.50 Low back pain, unspecified
CPT/HCPCS: 64635; 64636; 72100; J0665; J1010; J2003; J2250; J3010

== ENCOUNTER 2025-02-11 16:33 | Outpatient (REF) | payer MEDICARE, SELFPAY, MEDICAID ==
[2025-02-11 15:29] LABS: Anion Gap 8.7 mmol/L (3-11); BUN 17 mg/dL (7-18); CO2 25.3 mmol/L (21.0-32.0); CREATININE 1.1 mg/dL (0.70-1.30); Calcium 9.3 mg/dL (8.5-10.1); Chloride 105 mmol/L (98-107); Estimated GFR 71.77 (mL/min/1.73m2); Glucose 146 mg/dL (74-106); Potassium 4.2 mmol/L (3.5-5.1); Sodium 139 mmol/L (136-145)
== END 2025-02-11 16:34 | disposition home or self-care (01) ==
LOC: NCHCN 16:33
PROVIDERS: PCP Family Medicine; Visit Provider Family Medicine
DX: I10 Essential (primary) hypertension (principal)
CPT/HCPCS: 80048

== ENCOUNTER 2025-03-04 19:55 | Outpatient (REF) | payer MEDICARE, SELFPAY, MEDICAID ==
[2025-03-04 21:54] LABS: Abs Immature Grans 0.02 10^3/uL (0.0-0.06); Absolute Basophil Count 0.04 10^3/uL (0.0-0.2); Absolute Lymphocyte Count 1.79 10^3/uL (1.2-3.4); Absolute Monocyte Count 0.68 10^3/uL (0.1-0.8); Absolute Neutrophil Count 4.29 10^3/uL (1.2-6.7); Basophils % 0.6 %; Eosinophils % 2.8 %; HCT 47.6 % (40.0-50.0); HGB 16.6 g/dL (13.5-17.5); Immature Grans % 0.3 %; Lymphocytes % 25.5 %; MCH 30.9 pg (27.0-33.0); MCHC 34.9 % (32.0-36.0); MCV 89 fL (80-95); MPV 11.6 fL (8.0-11.0); Monocytes % 9.7 %; Neutrophils % 61.1 %; Platelet Count 211 10^3/uL (130-400); RBC 5.38 10^6/uL (4.36-5.78); RDW 13.2 % (11.8-14.1); RDW-SD 42.5 fL; WBC 7.02 10^3/uL (4.4-10.8)
[2025-03-04 22:07] LABS: Anion Gap 8.3 mmol/L (3-11); BUN 14 mg/dL (7-18); CO2 26.7 mmol/L (21.0-32.0); Calcium 9.6 mg/dL (8.5-10.1); Chloride 103 mmol/L (98-107); Estimated GFR 80.47 (mL/min/1.73m2); Glucose 91 mg/dL (74-106); Potassium 4.3 mmol/L (3.5-5.1); Sodium 138 mmol/L (136-145)
[2025-03-04 22:08] LABS: C-Reactive Protein < 0.50 mg/dL (<or=0.5)
== END 2025-03-04 19:56 | disposition home or self-care (01) ==
LOC: NCHCN 19:55
PROVIDERS: PCP Family Medicine; Visit Provider Family Medicine
DX: R61 Generalized hyperhidrosis (principal)
CPT/HCPCS: 80048; 85025; 86140

== ENCOUNTER 2025-06-26 15:23 | Outpatient (REF) | payer MEDICARE, SELFPAY ==
[2025-06-26 21:07] LABS: Glucose Negative (Negative)
[2025-06-26 21:15] LABS: Hemoglobin A1C 5.8 % (<5.7)
[2025-06-28 01:48] LABS: PSA, Diagnostic 4.7 ng/mL (<=6.5)
== END 2025-06-26 15:24 | disposition home or self-care (01) ==
LOC: NCHCN 15:23
PROVIDERS: PCP Family Medicine; Visit Provider Nurse Practitioner Family
DX: R35.0 Frequency of micturition (principal)
CPT/HCPCS: 81003; 83036; 84153

== ENCOUNTER 2025-08-20 07:36 | Outpatient (CLI) | payer MEDICARE, SELFPAY ==
[2025-08-20] VITALS (17 sets, daily range): BP systolic 133–154; BP diastolic 72–100; PULSE 56–84; RESP 11–26; TEMP 37; O2SAT 94–98
--- NOTE | 2025-08-20 06:00 | DI.RAD_ITS ---
Exam(s) XR PAIN CLINIC SACRIOILIAC 2V EXAM: XR PAIN CLINIC SACRIOILIAC 2V CLINICAL HISTORY: Dx: Lumbar Spondylosis TECHNIQUE: 2D and realtime digital imaging was performed. CONTRAST MATERIAL: Refer to procedure report. COMPARISON: No exams were available for comparison FINDINGS: Fluoroscopy was provided for Dr. Killian during the performance of a lumbar radiofrequency ablation. Please refer to the procedure report for complete details. Ka,r=30.8 mGy IMPRESSION: RADIATION DOSE DELIVERED: 0.0 0.0 0
[2025-08-20] MEDS: fentaNYL 100 MCG/2 ML VIAL IJ (09:00)
[2025-08-20] MEDS: Midazolam 2 MG/2 ML VIAL IVP (09:00)
[2025-08-20] MEDS: Lactated Ringers 500 ML 30 ML IV (09:12)
[2025-08-20] MEDS: Nerve Block Tray 1 EACH MC (09:12)
[2025-08-20] MEDS: methylPREDNISolone ACETATE 40 MG/ML VIAL IJ (09:42)
[2025-08-20] MEDS: Lidocaine 2% Multi-Dose 20 ML VIAL IJ (09:43)
[2025-08-20] MEDS: Bupivacaine 0.5% Pres-Free 10 ML VIAL IJ (09:43)
--- NOTE | 2025-08-20 09:49 | PDOC.PAIN_ITS ---
Date of service: 08/20/25 Time of Service: 09:50 Pain Managment Procedure Note Procedure Note Procedure Note: PROCEDURE NOTE BILATERAL LUMBAR RADIOFREQUENCY ABLATION Date of Service: August 20, 2025 Patient: Manan Steele Provider: Manan Killian DO, MPH Manan Steele [facility] Bilateral Lumbar Radiofrequency Ablation with the [employer]. 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 PROCEDURE: Radiofrequency Ablation of medial branches - bilateral L3, L4, L5 and lateral branches of bilateral S1. Manan was interviewed and the medical record was reviewed. There were no medical, pharmacologic, radiographic or other structural contraindications to attempting fluoroscopically guided BILATERAL Lumbar Radiofrequency Ablation. Risks and expected side effects as well as potential benefit of the procedure were reviewed with Manan, and the patient's voiced concerns were addressed. The printed consent form was signed. Standard time-out procedure was performed. Manan was brought into the fluoroscopy suite and positioned into the prone position on the fluoroscopy table and allowed to adjust to a position of comfort. A grounding pad was placed on the left abdomen. The sterile field was prepared using chlorhexidine preparation of the skin and sterile draping. Local anesthesia superficial and deep was provided by local infiltration of 2% lidocaine. A 17g 100 mm radiofrequency introducer needle was placed to the planned anatomic targets guided with intermittent fluoroscopy with a perpendicular approach to terminally place at the junction of the superior articular process and the transverse process of the bilateral L4, L5, the base of the sacral ala on the bilateral for the L5 medial branch nerve and the area between base of the sacral ala to the S1 foramen bilaterally. The stylets were removed and radiofrequency probes with a 4mm active tip were then inserted. Needle tip position of the probes was verified in the AP, oblique, and lateral views. At each site, the medial branch nerve was stimulated at 2 Hz to a maximum 1-2 volts determined to finalize safe needle and electrode placement. The patient was awake and responsive during this portion of the procedure. Each target was anesthetized with 1-2 mL of 2% Lidocaine for anesthesia for lesioning and then each target was lesioned at 80 degrees Celsius for 2 minutes and 30 seconds. Tissue impedances were noted to be between 250 and 500 Ohms. I next injected 1/4 cc of Depomedrol (40 mg/cc) followed by 1/2 cc of 0.5% Bupivacaine at each segmental sensory nerve. There was no unusual discomfort expressed by Manan. The needles were withdrawn without difficulty and bandages placed over the needle placement sites, the patient was observed and was without hemodynamic, neurologic, or allergic reactions. Fluoroscopic images were digitally archived. POST PROCEDURE EVALUATION: IMPRESSION: 1. Summary of procedure. Medication given is documented in the MAR. 2. Follow up plan: Manan to contact [facility] as needed. This procedure may be repeated if the patient achieves at least 50% improvement in pain/function for at least 6 months. 3. Estimated Blood Loss: <5 mls 4. Fluoroscopy time: Documented in the EMR. Follow up plans and appointments were discussed with the Manan. Post procedure instruction was given as documented in nursing documentation and having met discharge criteria, Manan was discharged from the [facility]. This advanced procedure uses cooled radiofrequency energy to safely target the sensory nerves responsible for sending pain signals.1 A radiofrequency generator transmits a small current of Radiofrequency energy through an insulated electrode, or probe, placed within tissue. Ionic heating, produced by the friction of charged molecules, thermally deactivates the nerves responsible for sending pain signals to the brain. Radiofrequency energy heats and cools the tissue at the site of pain. Unlike other Radiofrequency procedures, Coolief circulates water through the device while heating nervous tissue to create a larger treatment area, increasing the opportunity to help with pain. This combination targets the pain- transmitting nerves without excessive heating, leading to pain relief. COMMENTS: No apparent complications. Post-procedure pain: VAS= 5/10. I personally completed the entire procedure. MANAN KILLIAN DO, MPH [employer]BPM[employer]R - Subspecialty board certification in Pain Medicine [facility] Coding Conscious Sedation used for procedure: Yes CPT Codes: Single Facet Joint, Lumbar/Sacral *BILATERAL* - 195232M ([id number]~G) Single Facet Joint, Lumbar/Sacral cool each add'l - 68868D ([id number]~G) Additional Codes: Date of Service () Diagnoses: Lumbosacral spondylosis without myelopathy
== END 2025-08-20 07:37 | disposition home or self-care (01) ==
LOC: PC 07:36
PROVIDERS: PCP Family Medicine; Visit Provider Preventive Medicine Occupational Medicine
DX: M54.50 Low back pain, unspecified (principal); M47.816 Spondylosis without myelopathy or radiculopathy, lumbar region
CPT/HCPCS: 64635; 64636; 72200; J0665; J1010; J2003; J2250; J3010

== ENCOUNTER → 2025-08-21 03:46 | Outpatient (CLI) | payer MEDICARE, SELFPAY ==
--- NOTE | 2025-08-21 | DI.RAD_ITS ---
Exam(s) XR HIP PELVIS ADULT BL EXAM: XR HIP PELVIS ADULT BL CLINICAL HISTORY: BILAT HIP PAIN,M25.559,M25.551,M25.552. TECHNIQUE: 2D digital imaging was performed. COMPARISON: No exams were available for comparison FINDINGS: 3 views No evidence of pelvic nor hip fractures. Bone density normal. No osseous lesions. There are mild degenerative changes in the right. No joint space narrowing but there is a small marginal osteophyte off the lateral aspect of the right femoral head. Similar finding not seen on the left side. No hip joint space narrowing IMPRESSION: Mild degenerative changes in the right hip. DATA REPOSITORY: RADIATION DOSE DELIVERED:
== END ==
LOC: DI 03:46
PROVIDERS: PCP Family Medicine; Visit Provider Family Medicine
DX: M16.11 Unilateral primary osteoarthritis, right hip (principal)
CPT/HCPCS: 73521

== ENCOUNTER 2025-09-23 00:17 | Emergency (ER) | payer MEDICARE, SELFPAY ==
[2025-09-23] VITALS (74 sets, daily range): BP systolic 93–176; BP diastolic 46–103; PULSE 53–64; RESP 11–30; O2SAT 94–97
--- NOTE | 2025-09-23 | RT.EKG_ITS ---
APPROVED REPORT Exam: Resting ECG Reason for Exam: chest tightness Patient Location: E HR:64 bpm ECG Measurements Heart Rate 64 AXIS PA 204 P 51 QRSd 106 QRS -65 QT 408 T 26 QTc 421 Conclusion Sinus rhythm...normal P axis, V-rate 60- 99 Inferior infarct, old...Q >35mS, II III aVF Consider anterior infarct...Q >30mS in V2-V5 no ST segment or T wave abnormalities to suggset occlusive CA
--- NOTE | 2025-09-23 00:15 | DI.CT_ITS ---
Exam(s) CT THORAX ABD/PEL CTA EXAM: CT THORAX ABD/PEL CTA CLINICAL HISTORY: Chest pain concern for dissection. TECHNIQUE: Imaging Protocol: Axial CT angiography was performed with multi- slice acquisition and multi-planar and/or 3D reconstructions. Lung Computer Aided Detection (CAD) was utilized. CONTRAST MATERIAL: Intravenous: Omnipaque 350 contrast volume:100 mL Oral: No COMPARISON: CT CT THORAX ABD/PEL CTA from 02/07/[address] CHEST/ABD/PEL W from 05/15/[address] THORACIC LUMBAR SPINE REC from 05/15/2023 FINDINGS: CHEST: Tracheobronchial tree: Patent where visualized. There is no evidence of bronchiectasis. Pulmonary parenchyma: No consolidation or dominant measurable mass. No architectural distortion. Pulmonary Arteries: No evidence of filling defect to suggest pulmonary emboli. Mediastinum and Carito: No dominant adenopathy or fluid collection. The esophagus is unremarkable. Visualized thyroid: Unremarkable. Pleura: No effusion or pneumothorax. Heart: The heart is not dilated. No pericardial effusion. Aorta: Thoracic aorta non-dilated. Mild atherosclerotic calcification is seen. Soft Tissues: Mild gynecomastia. Bones: Within normal limits for the patient's age. ABDOMEN AND PELVIS: Abdomen: Celiac axis/mesenteric arteries: No evidence of occlusion or significant stenosis. Renal Arteries: No evidence of occlusion or significant stenosis. Aorta: No evidence of occlusion or significant stenosis. No aneurysm or dissection. Atherosclerotic calcification. Pelvis: Iliac Arteries: No evidence of occlusion or significant stenosis. Mild atherosclerotic calcification. Common Femoral Arteries: No evidence of occlusion or significant stenosis. ABDOMEN: Liver: There is diffuse decreased attenuation of the liver consistent with fatty infiltration. No measurable mass. Portal, superior mesenteric and splenic veins: Unremarkable. Gallbladder and Biliary Tract: No radiodense calculus or dilation. Pancreas: Normal density, no abnormal calcifications or inflammatory process. Spleen: Normal. Adrenals: No masses seen. Kidneys: Normal size, contour and axis. No radiodense stones or obstructive uropathy. No masses seen. Bowel: There is colonic diverticulosis without evidence of acute diverticulitis. There is no evidence of bowel wall thickening or bowel obstruction. There is no evidence of appendicitis. Peritoneal Cavity: There are findings of a prior left inguinal hernia repair. No free air. Lymph Nodes: Within normal limits. Bones: Within normal limits for the patient's age. Soft Tissues: There is a small fat containing right inguinal hernia. There is a right hydrocele in the scrotum. PELVIS: Bladder: Symmetric distention, no gross wall thickening. Reproductive Organs: Unremarkable as visualized. Lymph Nodes: Within normal limits. Bones: Within normal limits for the patient's age. IMPRESSION: 1. There is no acute abdominal or pelvic process. 2. There is no evidence of a pulmonary embolism, thoracic aortic aneurysm or dissection. 3. There is no evidence of an acute pulmonary process. 4. There is no evidence of an abdominal aortic aneurysm or dissection. 5. The preliminary [facility] report was reviewed. RADIATION DOSE DELIVERED: 1,004.07mGy.cm Total DLP DATA REPOSITORY: All CT scans at this facility are submitted to the National Radiology Data Registry (NRDR) Dose Index Registry (DIR) with the [employer] (ACR). RADIATION OPTIMIZATION: All CT scans at this facility use at least one of these dose optimization techniques: automated exposure control; mA and/or kV adjustment per patient size (includes targeted exams where dose is matched to clinical indication); or iterative reconstruction.
[2025-09-23 00:45] LABS: Abs Immature Grans 0.02 10^3/uL (0.0-0.06); HCT 44.5 % (40.0-50.0); HGB 15.6 g/dL (13.5-17.5); Immature Grans % 0.3 %; MCH 30.8 pg (27.0-33.0); MCHC 35.1 % (32.0-36.0); MCV 88 fL (80-95); MPV 10.5 fL (8.0-11.0); Platelet Count 214 10^3/uL (130-400); RBC 5.06 10^6/uL (4.36-5.78); RDW 12.8 % (11.8-14.1); RDW-SD 41.1 fL; WBC 7.07 10^3/uL (4.4-10.8)
[2025-09-23] MEDS: nitroGLYcerin in D5W 50 MG/250 ML BTL IV (00:54)
[2025-09-23 00:55] LABS: INR 1.0 (0.9-1.1); PTT Activated 25.6 sec (20.6-30.2); Prothrombin Time 10.4 sec (9.1-11.1)
[2025-09-23 01:00] LABS: Lipase 29 U/L (<53)
[2025-09-23 01:01] LABS: Magnesium 1.8 mg/dL (1.6-2.6); Troponin I 4 ng/L (<54)
[2025-09-23 01:02] LABS: ALT 28 U/L (10-49); AST 35 U/L (<34); Albumin 4.5 g/dL (3.2-5.0); Alkaline Phosphatase 80 U/L (46-116); Anion Gap 8.5 mmol/L (3-11); BUN 21 mg/dL (9-23); Bilirubin, Total 0.40 mg/dL (0.2-1.2); CO2 24.5 mmol/L (20.0-31.0); Calcium 8.7 mg/dL (8.3-10.6); Chloride 105 mmol/L (98-107); Glucose 107 mg/dL (74-106); Potassium 3.6 mmol/L (3.5-5.1); Sodium 138 mmol/L (136-145); Total Protein 6.8 g/dL (5.7-8.2)
[2025-09-23] MEDS: Omnipaque 350 MG/ML 100 ML BTL IJ (01:04)
[2025-09-23] MEDS: Normal Saline - Diluent 50 ML VIAL IJ (01:04)
[2025-09-23] MEDS: Normal Saline Flush 10 ML SYR IVP (01:05)
--- NOTE | 2025-09-23 01:53 | DI.[facility]_ITS ---
PROCEDURE INFORMATION: Exam: CTA Chest With Contrast CTA Abdomen and Pelvis With Contrast Exam date and time: 09/23/2025 1:02 AM Age: 70 years old Clinical indication: Right upper quadrant (ruq) abd pain; ?aortic dissection. Prior surgery; date: 6+ months: Hernia repair x 2 TECHNIQUE: Imaging protocol: Computed tomographic angiography of the chest with contrast. Exam focused on the arteries. Computed tomographic angiography of the abdomen and pelvis with contrast. Exam focused on the arteries. 3D rendering (Not supervised by radiologist): MIP and/or 3D reconstructed images were created by the technologist. Radiation optimization: All CT scans at this facility use at least one of these dose optimization techniques: automated exposure control; mA and/or kV adjustment per patient size (includes targeted exams where dose is matched to clinical indication); or iterative reconstruction. Contrast material: OMNIPAQUE 350; Contrast volume: 100 ml; Contrast route: INTRAVENOUS (IV); COMPARISON: CT THORAX ABD/PEL CTA 02/07/2022 3:46 PM FINDINGS: VASCULATURE: Pulmonary arteries: No evidence of acute pulmonary embolism. Aorta: Normal caliber thoracic / abdominal aorta without dissection or aneurysm. Celiac and mesenteric arteries: No occlusion or significant stenosis. Renal arteries: No occlusion or significant stenosis. Right iliac arteries: No occlusion or significant stenosis. Left iliac arteries: No occlusion or significant stenosis. CHEST: Lungs: No acute alveolar or ground glass infiltrate. Pleural spaces: No pleural fluid collection. No pneumothorax. Heart: No right ventricular strain. No pericardial effusion. ABDOMEN AND PELVIS: Liver: No mass. Liver fatty infiltration. Gallbladder and biliary ducts: Normal gallbladder. No cholelithiasis. No biliary tract dilatation. Pancreas: Unremarkable. No mass. No ductal dilation. Spleen: Unremarkable. No splenomegaly. Adrenal glands: Unremarkable. No mass. Kidneys and ureters: Unremarkable. No solid mass. No hydronephrosis. Stomach and bowel: Unremarkable. No obstruction. No mucosal thickening. Appendix: Normal appendix. Intraperitoneal space: No free air. No significant fluid collection. Urinary bladder: Unremarkable. No mass. Reproductive: Unremarkable as visualized. Lymph nodes: No enlarged lymph nodes. Bones/joints: Spinal degenerative changes. Mild scoliosis. Soft tissues: Unremarkable. IMPRESSION: 1. Normal caliber thoracic / abdominal aorta without dissection or aneurysm. 2. No evidence of acute pulmonary embolism. 3. No acute pulmonary infiltrate or pleural fluid collection. 4. No acute intra-abdominal or pelvic process. 5. Normal gallbladder. No cholelithiasis. No biliary tract dilatation. Dictated and Authenticated by: Keny Stratton MD. Orderin Bill Montiel MD
[2025-09-23 02:11] LABS: Troponin I 3 ng/L (<54)
--- NOTE | 2025-09-23 02:15 | RT.EKG_ITS ---
APPROVED REPORT Exam: Resting ECG Reason for Exam: chest pain Patient Location: E HR:55 bpm ECG Measurements Heart Rate 55 AXIS AK 217 P 44 QRSd 104 QRS -43 QT 471 T 15 QTc 452 Conclusion Sinus bradycardia...rate< 60 Borderline prolonged AK interval...AK >212, V-rate 50- 90 Left axis deviation...QRS axis (-30,-90) Low voltage, precordial leads...precordial leads <1.0mV compared to prior, new biphasic T wave V3
--- NOTE | 2025-09-23 02:39 | W.ED.GENAD ---
Discharge Plan Disposition Patient Disposition: Admit to [facility] Condition: Serious Discharge Details Clinical Impression: Angina pectoris, unstable Primary Care Provider: Courtney Hanna ED Provider: Tiana Khan Home Meds and New Rx's Prescriptions: No Action acetaminophen [Tylenol Arthritis Pain] 650 mg tablet extended release 1,300 mg PO Q12H diclofenac sodium [Voltaren Arthritis Pain] 1 % gel 2 g topical QID PRN Rx Instructions: apply to single elbow, wrist or hand; for hand includes palm/fingers/back of hand docusate sodium [Colace] 100 mg capsule 100 mg PO BID PRN simvastatin 20 mg tablet 20 mg PO QHS gabapentin 600 mg tablet 600 mg PO BID omeprazole 20 mg tablet,delayed release (DR/EC) 20 mg PO DAILY lisinopril 20 mg tablet 20 mg PO DAILY carbidopa-levodopa 25-100 mg tablet 3 tab PO TID rivastigmine tartrate 1.5 mg capsule 3 mg PO BID olmesartan 20 mg tablet 20 mg PO DAILY tamsulosin 0.4 mg capsule 0.8 mg PO DAILY cetirizine 10 mg tablet 10 mg PO DAILY PRN triamcinolone acetonide 0.1 % cream 1 applic topical DAILY acetaminophen [Tylenol Arthritis Pain] 650 mg tablet extended release 650 mg PO Q12H clotrimazole-betameth dip-zinc 1-0.05-20 % combo pack See Rx Instructions topical .COMPLEX Rx Instructions: apply CLOTRIMAZOLE/BETAMETHASONE CREAM twice daily: use ZINC OXIDE PASTE as needed/as directed topical multivitamin Tablet 1 tab PO DAILY rivastigmine 4.6 mg/24 hour patch 24 hour 1 patch transdermal DAILY Patient Comments: APPLY ONE PATCH TO THE SKIN EVERY DAY at 5am aspirin [Ecotrin Low Strength] 81 MG tablet,delayed release (DR/EC) 81 mg PO DAILY nitroglycerin 0.4 MG tablet, sublingual 1 tab Sublingual DIRECTED PRN cholecalciferol (vitamin D3) 1,000 UNITS tablet 1 tab PO DAILY venlafaxine [Effexor XR] 75 mg capsule,extended release 24hr 75 mg PO DAILY entacapone 200 mg tablet 200 mg PO TID Rx Instructions: administer at the same time as l-dopa/carbidopa dose HPI General Mode of arrival: EMS. Date/Time Provider Initiated Documentation: 09/23/25 00:26. Limitations to Documentation: no limitations. Information obtained by: patient and EMS. HPI Narrative: 70yo M with hx Parkinsons, HTN, HLD, CAD, angina, presenting for chest pain. Today during his typical 1.5 walk he became quite short of breath which is unusual for him. Tonight around 9pm while walking around the house he developd severe dull chest pressure; took 3 nitro with mild improvement. Pain at it's worse was 8/10. Called EMS who gave 2 additional ntiro and 325 of aspirin, pain subsequently decreased to 4-5/10. It is dull, substernal, and radiates to his left arm. Nothing seems to make it worse, the nitro seems to have made it better. No shortness of breath this evening. Has had similar pain in the past but it typically resolves after one or two nitro. No history of MA or CHF. Otherwise in his usual state of health with no fevers, chills, rash, nausea, vomiting, abdominal pain, lightheadedness, syncope, LE edema, or other concerns. Related Data Home Medications ?Medication ?Instructions ?Recorded ?Confirmed aspirin 81 mg tablet,delayed 81 mg PO DAILY 03/13/17 09/23/25 release (Ecotrin Low Strength) cholecalciferol (vitamin D3) 25 1 tab PO DAILY 03/13/17 09/23/25 mcg (1,000 unit) tablet nitroglycerin 0.4 mg sublingual 1 tab sublingual DIRECTED PRN 03/13/17 09/23/25 tablet simvastatin 20 mg tablet 20 mg PO QHS 03/07/22 09/23/25 acetaminophen 650 mg 1,300 mg PO Q12H 06/15/22 09/23/25 tablet,extended release (Tylenol Arthritis Pain) diclofenac sodium 1 % topical gel 2 g topical QID PRN 08/19/22 09/23/25 (Voltaren Arthritis Pain) docusate sodium 100 mg capsule 100 mg PO BID PRN 08/19/22 09/23/25 (Colace) multivitamin 1 tab PO DAILY 05/16/23 09/23/25 gabapentin 600 mg tablet 600 mg PO BID 08/29/23 09/23/25 entacapone 200 mg tablet 200 mg PO TID 06/19/24 09/23/25 venlafaxine 75 mg capsule,extended 75 mg PO DAILY 06/19/24 09/23/25 release 24 hr (Effexor XR) lisinopril 20 mg tablet 20 mg PO DAILY 03/24/25 09/23/25 omeprazole 20 mg tablet,delayed 20 mg PO DAILY 03/24/25 09/23/25 release carbidopa 25 mg-levodopa 100 mg 3 tab PO TID 06/27/25 09/23/25 tablet olmesartan 20 mg tablet 20 mg PO DAILY 06/27/25 09/23/25 rivastigmine tartrate 1.5 mg 3 mg PO BID 06/27/25 09/23/25 capsule tamsulosin 0.4 mg capsule 0.8 mg PO DAILY 06/27/25 09/23/25 acetaminophen 650 mg 650 mg PO Q12H 07/02/25 09/23/25 tablet,extended release (Tylenol Arthritis Pain) cetirizine 10 mg tablet 10 mg PO DAILY PRN 07/02/25 09/23/25 clotrimazole 1 %-betamethasone See Rx Instructions topical 07/02/25 09/23/25 0.05 % cream-zinc ox 20 % paste .COMPLEX topical triamcinolone acetonide 0.1 % 1 applic topical DAILY 07/02/25 09/23/25 topical cream rivastigmine 4.6 mg/24 hour 1 patch transdermal DAILY 09/23/25 09/23/25 transdermal patch Allergies Allergy/AdvReac Type Severity Reaction Status Date / Time atorvastatin (From Lipitor) Allergy Mild Unknown Verified 08/20/25 08:02 naproxen Allergy Unknown Unknown Unverified 08/20/25 08:02 lisinopril Allergy Skin Rash Unverified 08/20/25 08:02 General Stated Complaint: Chest Pain SARAH: 3 Review of Systems Narrative: see HPI Exam Narrative Exam Narrative: General: Alert, nontoxic Head: Normocephalic, atraumatic Neck: Trachea midline, ?Neck supple. ENT: ?MMM.? No oropharygeal lesions or exudate. Cardiac: ?RRR, no murmurs appreciated Resp: No respiratory distress. CTAB. Abd: ?Soft, non-distended, nontender : ?No suprapubic tenderness. Extremities: ?No deformities.? No peripheral edema. Neurologic: GCS 15. ? Moves all extremities freely against gravity Course Vital Signs Vital signs: Vital Signs Pulse 62 12/02/25 00:20 Respiratory Rate 18 09/23/25 00:20 Blood Pressure 132/54 L 09/23/25 00:20 Pulse Oximetry 96 09/23/25 00:20 Pulse 62 09/23/25 00:20 Respiratory Rate 18 09/23/25 00:23 Respiratory Effort Normal, Non-Labored 09/23/25 00:23 Respiratory Depth Normal 09/23/25 00:23 Respiratory Pattern Normal 09/23/25 00:23 Blood Pressure 132/54 L 09/23/25 00:20 Blood Pressure Position Supine 09/23/25 00:20 Pulse Oximetry 96 09/23/25 00:20 Oxygen Delivery Method Room Air 09/23/25 00:20 Oxygen Flow Rate 0 09/23/25 00:20 Pain Level 5 09/23/25 00:23 Lab/Test Results Lab/Test Results: Laboratory Tests Range/Units 09/23/25 09/23/25 00:32 01:34 WBC (4.4-10.8) 10^3/uL 7.07 RBC (4.36-5.78) 10^6/uL 5.06 Hgb (13.5-17.5) g/dL 15.6 Hct (40.0-50.0) % 44.5 MCV (80-95) fL 88 MCH (27.0-33.0) pg 30.8 MCHC (32.0-36.0) % 35.1 RDW (11.8-14.1) % 12.8 Plt Count (130-400) 10^3/uL 214 MPV (8.0-11.0) fL 10.5 Immature Gran % % 0.3 Neutrophils % % 56.5 Lymphocytes % % 30.4 Monocytes % % 10.3 Eosinophils % % 2.1 Basophils % % 0.4 Nucleated RBC % (0.0-0.3) % 0.0 Absolute Neutrophils (1.2-6.7) 10^3/uL 3.99 Absolute Lymphocytes (1.2-3.4) 10^3/uL 2.15 Absolute Monocytes (0.1-0.8) 10^3/uL 0.73 Absolute Eosinophils (0.0-0.7) 10^3/uL 0.15 Absolute Basophils (0.0-0.2) 10^3/uL 0.03 PT (9.1-11.1) sec 10.4 INR (0.9-1.1) 1.0 APTT (20.6-30.2) sec 25.6 Sodium (136-145) mmol/L 138 Potassium (3.5-5.1) mmol/L 3.6 Chloride (98-107) mmol/L 105 Carbon Dioxide (20.0-31.0) mmol/L 24.5 Anion Gap (3-11) mmol/L 8.5 BUN (9-23) mg/dL 21 Creatinine (0.73-1.18) mg/dL 0.96 Est GFR (CKD-EPI 2020) (mL/min/1.73m2) 76.95 Glucose (74-106) mg/dL 107 H Calcium (8.3-10.6) mg/dL 8.7 Magnesium (1.6-2.6) mg/dL 1.8 Total Bilirubin (0.2-1.2) mg/dL 0.40 AST (<34) U/L 35 ALT (10-49) U/L 28 Alkaline Phosphatase (46-116) U/L 80 Troponin I (<54) ng/L 4 3 NT-Pro-B Natriuret Pep (<300) pg/mL < 35 Total Protein (5.7-8.2) g/dL 6.8 Albumin (3.2-5.0) g/dL 4.5 Lipase (<53) U/L 29 Medical Decision Making 70yo M with hx Parkinsons, HTN, HLD, CAD, angina, presenting for chest pain. Today during his typical 1.5 walk he became quite short of breath which is unusual for him. Tonight around 9pm while walking around the house he developed severe dull chest pressure radiating to his left arm. Pain improved but not resolved by a total of 5 nitro prior to arrival. Similar chest pain in the past typically resolves after 1-2 nitro. He did receive 325 of ASA from EMS. Vital signs reassuring on arrival, lungs CTAB and in no respiratory distress on exam, RRR with no murmurs. Given improvement in pain with nitro and pain currently 4/10, will start on nitro gtt while awaiting results of workup. -EKG on arrival SR, appropriate intervals, no ST segment or T wave abnormalities to suggest occlusive MA. -Labs reviewed as below, CBC reassuring with no leukocytosis or anemia, CMP with no actionable abnormalities, Mg normal, lipase not suggestive of pancreatitis, coags normal, BNP not suggestive of heart failure, iniital troponin 4 with one hour repeat 3. -CTA independently reviewed; no clear dissection or saddle pulmonary embolus or pneumothorax on my view; radiology read below with no acute findings. On reassessment chest pain remains present, decreased 1-2/10, nitro gtt at 5.0. Repeat EKG SR, now with biphasic T wave in V3 concerning for possible Wellens'. Will treat for unstable angina vs Wellens with ACS protocol heparin; [facility] consult placed and awaiting callback (will defer antiplatelet selection/dosing to cardiology). 0315 [facility] cardiology involved in emergent situation, delay anticipated in call back. Will go ahead and give 300mg plavix now. 0345 Discussed with [facility] cardiology Dr. Willard; pt accepted to [facility] under Dr. Fontana, listing for later today. Advised trending EKG and troponin, continue heparin, no additional plavix at this time. Discussed with [facility] hospitalist Dr. Aguirre; pt accepted to medicine service. Awaiting admission orders. IMPRESSION: 1. Normal caliber thoracic / abdominal aorta without dissection or aneurysm. 2. No evidence of acute pulmonary embolism. 3. No acute pulmonary infiltrate or pleural fluid collection. 4. No acute intra-abdominal or pelvic process. 5. Normal gallbladder. No cholelithiasis. No biliary tract dilatation. Lab Data Lab results reviewed: Yes I reviewed the patient's lab results. Labs: Laboratory Tests Range/Units 09/23/25 09/23/25 09/23/25 00:32 01:34 03:50 WBC (4.4-10.8) 10^3/uL 7.07 RBC (4.36-5.78) 10^6/uL 5.06 Hgb (13.5-17.5) g/dL 15.6 Hct (40.0-50.0) % 44.5 MCV (80-95) fL 88 MCH (27.0-33.0) pg 30.8 MCHC (32.0-36.0) % 35.1 RDW (11.8-14.1) % 12.8 Plt Count (130-400) 10^3/uL 214 MPV (8.0-11.0) fL 10.5 Immature Gran % % 0.3 Neutrophils % % 56.5 Lymphocytes % % 30.4 Monocytes % % 10.3 Eosinophils % % 2.1 Basophils % % 0.4 Nucleated RBC % (0.0-0.3) % 0.0 Absolute Neutrophils (1.2-6.7) 10^3/uL 3.99 Absolute Lymphocytes (1.2-3.4) 10^3/uL 2.15 Absolute Monocytes (0.1-0.8) 10^3/uL 0.73 Absolute Eosinophils (0.0-0.7) 10^3/uL 0.15 Absolute Basophils (0.0-0.2) 10^3/uL 0.03 PT (9.1-11.1) sec 10.4 INR (0.9-1.1) 1.0 APTT (20.6-30.2) sec 25.6 Sodium (136-145) mmol/L 138 Potassium (3.5-5.1) mmol/L 3.6 Chloride (98-107) mmol/L 105 Carbon Dioxide (20.0-31.0) mmol/L 24.5 Anion Gap (3-11) mmol/L 8.5 BUN (9-23) mg/dL 21 Creatinine (0.73-1.18) mg/dL 0.96 Est GFR (CKD-EPI 2020) (mL/min/1.73m2) 76.95 Glucose (74-106) mg/dL 107 H Calcium (8.3-10.6) mg/dL 8.7 Magnesium (1.6-2.6) mg/dL 1.8 Total Bilirubin (0.2-1.2) mg/dL 0.40 AST (<34) U/L 35 ALT (10-49) U/L 28 Alkaline Phosphatase (46-116) U/L 80 Troponin I (<54) ng/L 4 3 3 NT-Pro-B Natriuret Pep (<300) pg/mL < 35 Total Protein (5.7-8.2) g/dL 6.8 Albumin (3.2-5.0) g/dL 4.5 Lipase (<53) U/L 29 Critical Care Time Critical Care Time Critical Care Time: Yes Total Critical Care Time: 36 Attestation: Due to a high probability of clinically significant, life threatening deterioration, the patient required my highest level of preparedness to intervene emergently and I personally spent this critical care time directly and personally managing the patient. This critical care time included obtaining a history; examining the patient; pulse oximetry; ordering and review of studies; arranging urgent treatment with development of a management plan; evaluation of patient's response to treatment; frequent reassessment; and, discussions with other providers. This critical care time was performed to assess and manage the high probability of imminent, life-threatening deterioration that could result in multi-organ failure. It was exclusive of separately billable procedures and treating other patients PFSH All Active Problems (Updated 09/23/25 @ 06:08 by Tiana Khan MD) Angina pectoris, unstable (Acute) Unstable angina pectoris (Acute) Parkinsons disease (Chronic) Herpes zoster (Acute) Headache (Acute) Weakness (Acute) Falls (Acute) Lumbosacral spondylosis without myelopathy (Acute) Back pain (Acute) Leg pain (Acute) Arthritis of right shoulder region (Acute) Angina pectoris (Chronic) Prediabetes (Acute) Chest pain (Acute) Medical History Metabolic dysfunction-associated steatotic liver disease (MASLD) Excessive sweating Chronic low back pain Pruritic rash Anxiety disorder Urinary frequency History of angina TRISTAN (nonalcoholic steatohepatitis) Liver fibrosis Hydrocele Arthralgia Lower urinary tract symptoms Elevated transaminase level Anaplasmosis Anemia Episode of shaking Anxiety History of wound infection Hydrocele, right 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 Rectus diastasis of lower abdomen Hypertension Hyperlipidemia CAD (coronary artery disease) Hx of colonic polyps Obesity Obstructive sleep apnea Steatosis of liver Tobacco abuse Squamous cell carcinoma Spinal stenosis Surgical History H/O radiofrequency ablation (RFA) of nerve of lumbar spine S/P hernia repair Family History Mother Alzheimer disease Father Heart disease Hypertension Social History Smoking/Tobacco Use Status: Never Smoking risk assessment performed?: Yes Alcohol Intake: current Alcohol Intake frequency: holidays/special occasions only Drug use: Never Substance use type: does not use Household members: spouse Housing: house Number of Children: 1 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
[2025-09-23] MEDS: Clopidogrel 300 MG TAB PO (03:22)
[2025-09-23] MEDS: Heparin in 0.45% NaCl 25,000 UNIT/250 ML BAG 10 UNIT IVINF (03:31)
[2025-09-23 04:20] LABS: Troponin I 3 ng/L (<54)
--- NOTE | 2025-09-23 05:00 | RT.EKG_ITS ---
APPROVED REPORT Exam: Resting ECG Reason for Exam: chest pain Patient Location: E HR:57 bpm ECG Measurements Heart Rate 57 AXIS GA 236 P 37 QRSd 104 QRS -49 QT 461 T 11 QTc 449 Conclusion Sinus bradycardia...rate< 60 Prolonged GA interval...GA >220, V-rate 50- 90 Inferior infarct, old...Q >35mS, II III aVF
--- NOTE | 2025-09-23 05:20 | W.PM.HP.N ---
Date of service: 09/23/25 Time of Service: 05:20 Assessment and Plan Assessment and plan (1) Unstable angina pectoris: Start date: 09/23/25 Status: Acute Assessment and plan: This is a 70-year-old gentleman who carries nitroglycerin but has not used for 5 years. He has had recent onset of exertional symptoms starting as shortness of breath and extreme weakness and then chest pain which is retrosternal radiating into his left arm. He is nitro responsive but has never completely got rid of his pain during his ED visit. He has not had morphine so this is being attempted with IV morphine 4 mg every 2 hours as needed. His blood pressure is elevated and he will have his nitroglycerin drip titrated up. He is awaiting transfer to [facility] cardiology service. He has been loaded with Plavix, is on baby aspirin daily and has been maximized on his statin therapy. He is not on a beta-miguel and this could be initiated if heart rate tolerates. Continue heparin and nitroglycerin infusions. He is a full code. (2) Parkinsons disease: Status: Chronic Assessment and plan: Recently worsening but no falls. He has medical therapy which is maximized. He had no significant tremors or masklike facies during my exam. Continue outpatient medical therapy. (3) CAD (coronary artery disease): Assessment and plan: Previous history of CAD carrying nitroglycerin but not using for the last 5 years. He has never had cardiac catheterization which should be entertained presently. He is pending transfer when bed is available. (4) Obstructive sleep apnea: Assessment and plan: Continue home positive pressure treatment if patient is on this treatment. (5) Hypertension: Assessment and plan: Continue outpatient medical therapy and consider adding beta-miguel. Blood pressure has been soft on his nitroglycerin infusion. (6) TRISTAN (nonalcoholic steatohepatitis): Assessment and plan: Patient is not drinking alcohol and this may be secondary to his metabolic issues. Weight loss would be ideal. Liver functions are not elevated. He does not have overt diabetes. History of Present Illness History of Present Illness Chief Complaint: Exertional chest pain partially responsive to nitroglycerin sublingually. Narrative: This is a 70-year-old male patient who has known CAD with no previous cardiac catheterization prescribed sublingual nitroglycerin with 2 nitroglycerin usually taking care of his exertional pain. He has carried the nitroglycerin for at least 5 years and never used it. He has had no previous interventions and rarely follows up with cardiology. He had gone for his usual daily walk of 1.5 miles during the day prior to presentation and began to have extreme shortness of breath which was unusual for him. The evening he presented to the ED he began to have crushing retrosternal chest pain which was partially responsive to 2 nitroglycerin sublingually. He called EMS and they gave him an additional 2-3 nitroglycerin sublingually which improved his pain from 8/10 to 4/10. The pain was radiating into his left arm but he had no other associated symptoms denying diaphoresis, nausea or shortness of breath at the time of his chest pain. In the ED he did receive IV heparin with a loading dose of Plavix the patient already on daily low-dose aspirin. Further nitroglycerin was given by infusion and titration and the patient's pain did decrease to about a 1/10 but continued to persist and slightly increased for the time I saw him. He was having associated diaphoresis but no nausea or vomiting and no shortness of breath at rest. He continued to go into his left arm. Or was resolved. EKG initially showed no acute ST segment elevations and troponins were negative when trended. Repeat EKG did show new T wave inversions or biphasic T waves in V3 with some concerns of Wellens syndrome. [facility] was called with discussion for transfer to that facility with the gold letterer. The patient was accepted to Dr. Fontana's service pending bed availability. The patient was on heparin and nitroglycerin infusion never being completely pain-free. He was given morphine 4 mg IV push to help alleviate his pain at the time I saw him. This will be continued every 2 hours as needed. He will be admitted to the ICU until bed is available we will continue to attempt to titrate nitroglycerin drip for the patient to be pain-free. If he stays at this facility we should trend troponins further. He is a full code. Review of Systems Narrative: 13 point review of system otherwise unrevealing or stable. Patient has had stable angina with no recurrences for 5 years though he did carry nitroglycerin. 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 PFSH All Active Problems (Updated 09/23/25 @ 08:43 by Manan Aguirre) Angina pectoris, unstable (Acute) Unstable angina pectoris (Acute) Parkinsons disease (Chronic) Herpes zoster (Acute) Headache (Acute) Weakness (Acute) Falls (Acute) Lumbosacral spondylosis without myelopathy (Acute) Back pain (Acute) Leg pain (Acute) Arthritis of right shoulder region (Acute) Angina pectoris (Chronic) Prediabetes (Acute) Chest pain (Acute) Medical History Metabolic dysfunction-associated steatotic liver disease (MASLD) Excessive sweating Chronic low back pain Pruritic rash Anxiety disorder Urinary frequency History of angina TRISTAN (nonalcoholic steatohepatitis) Liver fibrosis Hydrocele Arthralgia Lower urinary tract symptoms Elevated transaminase level Anaplasmosis Anemia Episode of shaking Anxiety History of wound infection Hydrocele, right 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 Rectus diastasis of lower abdomen Hypertension Hyperlipidemia CAD (coronary artery disease) Hx of colonic polyps Obesity Obstructive sleep apnea Steatosis of liver Tobacco abuse Squamous cell carcinoma Spinal stenosis Surgical History H/O radiofrequency ablation (RFA) of nerve of lumbar spine S/P hernia repair Family History Mother Alzheimer disease Father Heart disease Hypertension Social History Smoking/Tobacco Use Status: Never Smoking risk assessment performed?: Yes Alcohol Intake: current Alcohol Intake frequency: holidays/special occasions only Drug use: Never Substance use type: does not use Household members: spouse Housing: house Number of Children: 1 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 Meds Allergies and Home Medications Allergies Allergy/AdvReac Type Severity Reaction Status Date / Time atorvastatin (From Lipitor) Allergy Mild Unknown Verified 08/20/25 08:02 naproxen Allergy Unknown Unknown Unverified 08/20/25 08:02 lisinopril Allergy Skin Rash Unverified 08/20/25 08:02 Home Medications ?Medication ?Instructions ?Recorded ?Confirmed ?Type aspirin 81 mg tablet,delayed 81 mg PO DAILY 03/13/17 09/23/25 History release (Ecotrin Low Strength) cholecalciferol (vitamin D3) 25 1 tab PO DAILY 03/13/17 09/23/25 History mcg (1,000 unit) tablet nitroglycerin 0.4 mg sublingual 1 tab sublingual DIRECTED PRN 03/13/17 09/23/25 History tablet simvastatin 20 mg tablet 20 mg PO QHS 03/07/22 09/23/25 History acetaminophen 650 mg 1,300 mg PO Q12H 06/15/22 09/23/25 History tablet,extended release (Tylenol Arthritis Pain) diclofenac sodium 1 % topical gel 2 g topical QID PRN 08/19/22 09/23/25 History (Voltaren Arthritis Pain) docusate sodium 100 mg capsule 100 mg PO BID PRN 08/19/22 09/23/25 History (Colace) multivitamin 1 tab PO DAILY 05/16/23 09/23/25 History gabapentin 600 mg tablet 600 mg PO BID 08/29/23 09/23/25 History entacapone 200 mg tablet 200 mg PO TID 06/19/24 09/23/25 History venlafaxine 75 mg capsule,extended 75 mg PO DAILY 06/19/24 09/23/25 History release 24 hr (Effexor XR) lisinopril 20 mg tablet 20 mg PO DAILY 03/24/25 09/23/25 History omeprazole 20 mg tablet,delayed 20 mg PO DAILY 03/24/25 09/23/25 History release carbidopa 25 mg-levodopa 100 mg 3 tab PO TID 06/27/25 09/23/25 History tablet olmesartan 20 mg tablet 20 mg PO DAILY 06/27/25 09/23/25 History rivastigmine tartrate 1.5 mg 3 mg PO BID 06/27/25 09/23/25 History capsule tamsulosin 0.4 mg capsule 0.8 mg PO DAILY 06/27/25 09/23/25 History acetaminophen 650 mg 650 mg PO Q12H 07/02/25 09/23/25 History tablet,extended release (Tylenol Arthritis Pain) cetirizine 10 mg tablet 10 mg PO DAILY PRN 07/02/25 09/23/25 History clotrimazole 1 %-betamethasone See Rx Instructions topical 07/02/25 09/23/25 History 0.05 % cream-zinc ox 20 % paste .COMPLEX topical triamcinolone acetonide 0.1 % 1 applic topical DAILY 07/02/25 09/23/25 History topical cream rivastigmine 4.6 mg/24 hour 1 patch transdermal DAILY 09/23/25 09/23/25 History transdermal patch Exam Narrative Exam Narrative: General: Patient appears appropriate for age, short stature and moderately obese, alert and oriented x 3 and in moderate distress being slightly diaphoretic with his chest discomfort. HEENT: Normocephalic, eyes with pupils equal and react to light symmetrically, extraocular movement intact and sclera anicteric. Neck: Supple without JVD. Back: Stooped posture without CVA tenderness. Lungs: Fair aeration and clear to auscultation percussion with no focalizing rales or rhonchi. No expiratory wheeze. Heart: Regular rate and rhythm with distant heart sounds, no appreciable murmur or gallop. Abdomen: Obese contour, soft and nontender to palpation with no palpable hepatosplenomegaly. Bowel sounds positive in all quadrants. Genitalia/rectal: Exam deferred. Extremity: Without clubbing, cyanosis or grossly pitting edema. Slight nonpitting edema over ankles. Good cap refill. Skin: Normal color, warm and slightly sweaty and diaphoretic over his back especially. Neuro: Cranial nerves II through XII grossly intact. No focalizing motor deficits with slight resting tremor and increased tone with history of Parkinson's disease. Psych: Normal affect and mood. No abnormal thought processes. Remote and recent memory grossly intact. Results Imaging Imaging Studies: CTA Chest With Contrast CTA Abdomen and Pelvis With Contrast Exam date and time: 09/23/2025 1:02 AM Age: 70 years old Clinical indication: Right upper quadrant (ruq) abd pain; ?aortic dissection. Prior surgery; date: 6+ months: Hernia repair x 2 COMPARISON: CT THORAX ABD/PEL CTA 02/07/2022 3:46 PM FINDINGS: VASCULATURE: Pulmonary arteries: No evidence of acute pulmonary embolism. Aorta: Normal caliber thoracic / abdominal aorta without dissection or aneurysm. Celiac and mesenteric arteries: No occlusion or significant stenosis. Renal arteries: No occlusion or significant stenosis. Right iliac arteries: No occlusion or significant stenosis. Left iliac arteries: No occlusion or significant stenosis. CHEST: Lungs: No acute alveolar or ground glass infiltrate. Pleural spaces: No pleural fluid collection. No pneumothorax. Heart: No right ventricular strain. No pericardial effusion. ABDOMEN AND PELVIS: Liver: No mass. Liver fatty infiltration. Gallbladder and biliary ducts: Normal gallbladder. No cholelithiasis. No biliary tract dilatation. Pancreas: Unremarkable. No mass. No ductal dilation. Spleen: Unremarkable. No splenomegaly. Adrenal glands: Unremarkable. No mass. Kidneys and ureters: Unremarkable. No solid mass. No hydronephrosis. Stomach and bowel: Unremarkable. No obstruction. No mucosal thickening. Appendix: Normal appendix. Intraperitoneal space: No free air. No significant fluid collection. Urinary bladder: Unremarkable. No mass. Reproductive: Unremarkable as visualized. Lymph nodes: No enlarged lymph nodes. Bones/joints: Spinal degenerative changes. Mild scoliosis. Soft tissues: Unremarkable. IMPRESSION: 1. Normal caliber thoracic / abdominal aorta without dissection or aneurysm. 2. No evidence of acute pulmonary embolism. 3. No acute pulmonary infiltrate or pleural fluid collection. 4. No acute intra-abdominal or pelvic process. 5. Normal gallbladder. No cholelithiasis. No biliary tract dilatation. Labs 09/23/25 00:32 09/23/25 00:32 Labs: Laboratory Results - last 24 hr 09/23/25 09/23/25 09/23/25 00:32 01:34 03:50 WBC 7.07 RBC 5.06 Hgb 15.6 Hct 44.5 MCV 88 MCH 30.8 MCHC 35.1 RDW 12.8 Plt Count 214 MPV 10.5 Immature Gran % 0.3 Neutrophils % 56.5 Lymphocytes % 30.4 Monocytes % 10.3 Eosinophils % 2.1 Basophils % 0.4 Nucleated RBC % 0.0 Absolute Neutrophils 3.99 Absolute Lymphocytes 2.15 Absolute Monocytes 0.73 Absolute Eosinophils 0.15 Absolute Basophils 0.03 PT 10.4 INR 1.0 APTT 25.6 Sodium 138 Potassium 3.6 Chloride 105 Carbon Dioxide 24.5 Anion Gap 8.5 BUN 21 Creatinine 0.96 Est GFR (CKD-EPI 2020) 76.95 Glucose 107 H Calcium 8.7 Magnesium 1.8 Total Bilirubin 0.40 AST 35 ALT 28 Alkaline Phosphatase 80 Troponin I 4 3 3 NT-Pro-B Natriuret Pep < 35 Total Protein 6.8 Albumin 4.5 Lipase 29 Last Vital Signs Pulse 53 L 09/23/25 02:51 Resp 19 09/23/25 02:51 BP 110/67 09/23/25 02:51 Pulse Ox 96 09/23/25 02:51 VTE Prohylaxis Risk Level: Moderate/High Risk Contraindications: None Prophylaxis: Patient anticoagulated (On heparin infusion with unstable angina pectoris.) Time Spent Time spent with Patient: >75 minutes Time was spent: preparing to see the patient(eg.review tests), obtaining and/or reviewing separately otained hiistory, ordering medications,tests, procedures, referring, communicating with other health rn home care, indepentently interpreting results, counseling the patient and care coordination
[2025-09-23] MEDS: Atorvastatin 40 MG TAB 80 MG PO (06:10)
[2025-09-23 06:22] LABS: Troponin I < 3 ng/L (<54)
[2025-09-23 06:54] LABS: COVID-19 PCR Negative (Negative); RSV PCR Negative (Negative)
[2025-09-23] MEDS: MORPHine 10 MG/ML VIAL (07:53)
[2025-09-23] MEDS: Carbidopa 25/Levodopa 100 TAB PO (08:23)
--- NOTE | 2025-09-23 09:50 | DSE_ITS ---
Date of service: 09/23/25 Time of Service: 09:50 DS: Diagnosis Discharge Diagnosis (1) Unstable angina pectoris: Status: Acute (2) Parkinsons disease: Status: Chronic Discharge Plan Disposition Patient Disposition: Transfer-Acute Inpatient Care Specific Acute Inpt Facility: [facility] Condition: Serious Discharge Details Clinical Impression: Angina pectoris, unstable Primary Care Provider: Courtney Hanna ED Provider: Isak Chinchilla [place] Meds and New Rx's Prescriptions: New heparin(porcine) in 0.45% NaCl 25,000 unit/250 mL Parenteral Solution 25,000 unit IVINF INFUSION Qty: 0 0RF nitroglycerin in 5 % dextrose 50 mg/250 mL (200 mcg/mL) Solution See Rx Instructions .ROUTE .COMPLEX Qty: 3000 0RF Rx Instructions: Nitroglycerin titrate for CP keep SBP > 100 Continued acetaminophen [Tylenol Arthritis Pain] 650 mg tablet extended release 1,300 mg PO Q12H diclofenac sodium [Voltaren Arthritis Pain] 1 % gel 2 g topical QID PRN Rx Instructions: apply to single elbow, wrist or hand; for hand includes palm/fingers/back of hand docusate sodium [Colace] 100 mg capsule 100 mg PO BID PRN simvastatin 20 mg tablet 20 mg PO QHS gabapentin 600 mg tablet 600 mg PO BID omeprazole 20 mg tablet,delayed release (DR/EC) 20 mg PO DAILY lisinopril 20 mg tablet 20 mg PO DAILY carbidopa-levodopa 25-100 mg tablet 3 tab PO TID rivastigmine tartrate 1.5 mg capsule 3 mg PO BID olmesartan 20 mg tablet 20 mg PO DAILY tamsulosin 0.4 mg capsule 0.8 mg PO DAILY cetirizine 10 mg tablet 10 mg PO DAILY PRN triamcinolone acetonide 0.1 % cream 1 applic topical DAILY acetaminophen [Tylenol Arthritis Pain] 650 mg tablet extended release 650 mg PO Q12H clotrimazole-betameth dip-zinc 1-0.05-20 % combo pack See Rx Instructions topical .COMPLEX Rx Instructions: apply CLOTRIMAZOLE/BETAMETHASONE CREAM twice daily: use ZINC OXIDE PASTE as n eeded/as directed topical multivitamin Tablet 1 tab PO DAILY rivastigmine 4.6 mg/24 hour patch 24 hour 1 patch transdermal DAILY Patient Comments: APPLY ONE PATCH TO THE SKIN EVERY DAY at 5am aspirin [Ecotrin Low Strength] 81 MG tablet,delayed release (DR/EC) 81 mg PO DAILY nitroglycerin 0.4 MG tablet, sublingual 1 tab Sublingual DIRECTED PRN cholecalciferol (vitamin D3) 1,000 UNITS tablet 1 tab PO DAILY venlafaxine [Effexor XR] 75 mg capsule,extended release 24hr 75 mg PO DAILY entacapone 200 mg tablet 200 mg PO TID Rx Instructions: administer at the same time as l-dopa/carbidopa dose Discharge Data Discharge Physician: Isak Chinchilla DS: Summary Time Spent with Patient providing and/or coordinating discharge services: Greater than 30 minutes Status at Discharge Functional status at discharge: independent ambulation Overall status at discharge: patient is not back to baseline Mental Status: mental status grossly normal Speech and Movement: speech and movement normal Mood: congruent mood Affect: normal affect Exam Narrative Exam Narrative: General: Alert, nontoxic Head: Normocephalic, atraumatic Neck: Trachea midline, ?Neck supple. ENT: ?MMM.? No oropharygeal lesions or exudate. Cardiac: ?RRR, no murmurs appreciated Resp: No respiratory distress. CTAB. Abd: ?Soft, non-distended, nontender : ?No suprapubic tenderness. Extremities: ?No deformities.? No peripheral edema. Neurologic: GCS 15. ? Moves all extremities freely against gravity Psych Mental Status: mental status grossly normal Speech and Movement: speech and movement normal Mood: congruent mood Affect: normal affect DS: Data Vitals/I&O Vitals and I&O: Vital Signs Pulse 55 L 09/23/25 08:31 Pulse 58 L 09/23/25 08:31 Respiratory Rate 23 09/23/25 08:31 Respiratory Effort Normal, Non-Labored 09/23/25 02:30 Respiratory Depth Normal 09/23/25 02:30 Respiratory Pattern Normal 09/23/25 02:30 Blood Pressure 145/82 H 09/23/25 08:31 Blood Pressure Mean 102 09/23/25 08:31 Blood Pressure Position Supine 09/23/25 02:30 Pulse Oximetry 95 09/23/25 08:31 Oxygen Delivery Method Room Air 09/23/25 02:30 Oxygen Flow Rate 0 09/23/25 02:30 Pain Level 4 09/23/25 07:53 Intake & Output 09/22/25 09/22/2509/23/25 11:59 23:59 11:59 Intake Total 20.900 / 20.900 Balance 20.900 / 20.900 Weight 99.79 kg Intake: IV .900 / 20.900 Data Completed and Pending Pending Labs at Discharge: 09/23/25 09/23/25 09/23/25 00:32 01:34 03:50 WBC 7.07 RBC 5.06 Hgb 15.6 Hct 44.5 MCV 88 MCH 30.8 MCHC 35.1 RDW 12.8 Plt Count 214 MPV 10.5 Immature Gran % 0.3 Neutrophils % 56.5 Lymphocytes % 30.4 Monocytes % 10.3 Eosinophils % 2.1 Basophils % 0.4 Nucleated RBC % 0.0 Absolute Neutrophils 3.99 Absolute Lymphocytes 2.15 Absolute Monocytes 0.73 Absolute Eosinophils 0.15 Absolute Basophils 0.03 PT 10.4 INR 1.0 APTT 25.6 Sodium 138 Potassium 3.6 Chloride 105 Carbon Dioxide 24.5 Anion Gap 8.5 BUN 21 Creatinine 0.96 Est GFR (CKD-EPI 2020) 76.95 Glucose 107 H Calcium 8.7 Magnesium 1.8 Total Bilirubin 0.40 AST 35 ALT 28 Alkaline Phosphatase 80 Troponin I 4 3 3 NT-Pro-B Natriuret Pep < 35 Total Protein 6.8 Albumin 4.5 Lipase 29 COVID-19 Source SARS-CoV-2 (PCR) Influenza Type A (PCR) Influenza Type B (PCR) RSV (PCR) 09/23/25 09/23/25 05:45 06:15 WBC RBC Hgb Hct MCV MCH MCHC RDW Plt Count MPV Immature Gran % Neutrophils % Lymphocytes % Monocytes % Eosinophils % Basophils % Nucleated RBC % Absolute Neutrophils Absolute Lymphocytes Absolute Monocytes Absolute Eosinophils Absolute Basophils PT INR APTT Sodium Potassium Chloride Carbon Dioxide Anion Gap BUN Creatinine Est GFR (CKD-EPI 2020) Glucose Calcium Magnesium Total Bilirubin AST ALT Alkaline Phosphatase Troponin I < 3 NT-Pro-B Natriuret Pep Total Protein Albumin Lipase COVID-19 Source Nasopharynx SARS-CoV-2 (PCR) Negative Influenza Type A (PCR) Negative Influenza Type B (PCR) Negative RSV (PCR) Negative PFSH All Active Problems (Updated 09/23/25 @ 08:43 by Manan Aguirre) Angina pectoris, unstable (Acute) Unstable angina pectoris (Acute) Parkinsons disease (Chronic) Herpes zoster (Acute) Headache (Acute) Weakness (Acute) Falls (Acute) Lumbosacral spondylosis without myelopathy (Acute) Back pain (Acute) Leg pain (Acute) Arthritis of right shoulder region (Acute) Angina pectoris (Chronic) Prediabetes (Acute) Chest pain (Acute) Medical History Metabolic dysfunction-associated steatotic liver disease (MASLD) Excessive sweating Chronic low back pain Pruritic rash Anxiety disorder Urinary frequency History of angina TRISTAN (nonalcoholic steatohepatitis) Liver fibrosis Hydrocele Arthralgia Lower urinary tract symptoms Elevated transaminase level Anaplasmosis Anemia Episode of shaking Anxiety History of wound infection Hydrocele, right 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 Rectus diastasis of lower abdomen Hypertension Hyperlipidemia CAD (coronary artery disease) Hx of colonic polyps Obesity Obstructive sleep apnea Steatosis of liver Tobacco abuse Squamous cell carcinoma Spinal stenosis Surgical History H/O radiofrequency ablation (RFA) of nerve of lumbar spine S/P hernia repair Family History Mother Alzheimer disease Father Heart disease Hypertension Social History Smoking/Tobacco Use Status: Never Smoking risk assessment performed?: Yes Alcohol Intake: current Alcohol Intake frequency: holidays/special occasions only Drug use: Never Substance use type: does not use Household members: spouse Housing: house Number of Children: 1 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
[2025-09-23] MEDS: MORPHine 10 MG/ML VIAL 4 MG IVP (10:08)
== END 2025-09-23 10:14 | disposition short-term general hospital (02) ==
PROVIDERS: Family Medicine; Student in an Organized Health Care Education/Training Program; Emergency Provider Family Medicine; PCP Family Medicine
DX: R07.9 Chest pain, unspecified (principal); I25.110 Atherosclerotic heart disease of native coronary artery with unstable angina pectoris; G20.B2 Parkinson's disease with dyskinesia, with fluctuations; G47.33 Obstructive sleep apnea (adult) (pediatric); I10 Essential (primary) hypertension; K75.81 Nonalcoholic steatohepatitis (NASH); E78.5 Hyperlipidemia, unspecified; Z79.82 Long term (current) use of aspirin
CPT/HCPCS: 00123; 36415; 71275; 80053; 83690; 87637; 93005; 96374; 99285; 74174; 83735; 83880; 84484; 85025; 85610; 85730; 93010; J1644; J2270; J2305; J3490